=== PATIENT | female | born 1945 | race Caucasian/White ===

== ENCOUNTER → 2016-05-22 | Outpatient (CLI) | payer BC, MEDICARE | LOC: LABWHC1 11:44 | PROVIDERS: ATTEND Psychiatry & Neurology Neurology | DX: G40.209 Localization-related (focal) (partial) symptomatic epilepsy and epileptic syndromes with complex partial seizures, not intractable, without status epilepticus (principal); Z79.899 Other long term (current) drug therapy | CPT/HCPCS: 36415; 80177 ==

== ENCOUNTER → 2016-07-08 | Outpatient (CLI) | payer BC ==
--- NOTE | 2016-07-08 19:13 | CONS ---
DATE OF CONSULTATION: 07/08/2016 This patient is a 71-year-old lady who has been evaluated in the sleep center for possible obstructive sleep apnea-hypopnea syndrome. HISTORY OF PRESENT ILLNESS/SLEEP-WAKE EVALUATION: Patient's usual sleep schedule is from around 10:30 p.m. until 5 a.m. Sometimes she has problems with falling asleep. No TV in bedroom. She snores, according to her family. She wakes up from sleep 3 times with nocturia. In the morning she wakes up tired, feeling sleepy during the day. Mcgrath Sleepiness Scale is significantly increased to 13. She has episodes of depression and claustrophobia. No history of hypnagogic hallucinations, sleep paralysis or cataplexy. Past medical history is positive for episodes of atrial fibrillation. Sometimes these episodes happen during sleep. Positive history of 2 episodes of atrial fibrillation which were converted to normal sinus rhythm with the usage of only beta blockers. Hypertension. Hypothyroidism. Seasonal allergies. Iron deficiency. PAST SURGICAL HISTORY: Back surgery, cholecystectomy, appendectomy, tubal irrigation. Left leg bypass. MEDICATIONS: 1. Savaysa. 2. Motrin. 3. Oxybutynin. 4. Levetiracetam. 5. Levothyroxine. 6. ( ) 7. Losartan. 8. Loratadine. 9. Vitamin D3 supplement. 10. Atenolol. SOCIAL HISTORY: Negative for smoking or using alcohol. REVIEW OF SYSTEMS: Multiple awakenings from sleep, sleepiness during the day, swelling of the legs. No fevers. No double vision. No recent chest pain. No shortness of breath. No abdominal pain. No bleeding episodes. No blood in urine. No seizure episodes. FAMILY HISTORY: Hypertension, heart problems, stroke, arthritis, snoring, acid reflux. PHYSICAL EXAMINATION: GENERAL: A pleasant 71-year-old lady who looks probably younger than her age. VITAL SIGNS: BP 107/66, HR 45, RR 16. Height 64-1/2 inches. Weight 201.4. BMI 33.9. Neck 14-1/4 inches in circumference. Temperature 98.3. Oxygen saturation at room air 97%. HEENT: PERRLA, EOMI. Evaluation of oropharynx showed tongue protrudes midline; low position of soft palate. NECK: Supple. No JVD. Thyroid is not palpable. LUNGS: Clear to percussion and to auscultation. Good air exchange. No wheezing or rhonchi. HEART: S1, S2 regular. No murmurs, gallops or rubs. ABDOMEN: Soft and nontender. Bowel sounds are present. No organomegaly appreciated. EXTREMITIES: One plus ankle edema. MULTIPLE SCLEROSIS NURSE: Awake, alert, and oriented x3. Cranial nerves 2 to 7 intact. There is no fasciculation or atrophy noted. No focal deficits observed. IMPRESSION: 1. Snoring, multiple awakenings from sleep with nocturia, low position of soft palate, excessive daytime sleepiness, Mcgrath Sleepiness Scale increased to 13; obstructive sleep apnea-hypopnea syndrome. 2. History of atrial fibrillation, two episodes, converted to normal sinus rhythm with medications. 3. History of two seizure episodes. One of them started during sleep time. 4. Hypothyroidism. 5. Hypertension. 6. Seasonal allergies. 7. Status post back surgery. 8. Status post cholecystectomy. 9. History of iron deficiency. 10. Status post appendectomy. 11. Status post tubal ligation. 12. Status post bypass surgery. PLAN: 1. Polysomnography for evaluation of patient's breathing during sleep. 2. CPAP/BiPAP titration if sleep study confirms obstructive sleep apnea-hypopnea syndrome. 3. Preferable position during sleep on the side. 4. No driving if patient feels any sleepiness. Patient is aware of civil and criminal liability for unsafe driving. 5. I will see patient for follow-up visit to explain results of the testing and following plan. Thank you very much for referring this patient for consultation. Sincerely, Jose Concepcion MD, PhD, FAASM. Diplomat of [employer], Sleep Medicine Board by [employer] [facility] [place]
== END ==
LOC: SLEEP 15:02
PROVIDERS: ATTEND Internal Medicine
DX: G47.33 Obstructive sleep apnea (adult) (pediatric) (principal); I48.91 Unspecified atrial fibrillation; E03.9 Hypothyroidism, unspecified; I10 Essential (primary) hypertension; E61.1 Iron deficiency; Z98.890 Other specified postprocedural states; Z90.49 Acquired absence of other specified parts of digestive tract; Z98.51 Tubal ligation status; Z79.1 Long term (current) use of non-steroidal anti-inflammatories (NSAID); Z79.899 Other long term (current) drug therapy
CPT/HCPCS: 99211

== ENCOUNTER → 2016-12-22 | Outpatient (CLI) | payer BC, MEDICARE ==
--- NOTE | 2016-12-23 10:22 | MM ---
Reason for exam: screening (asymptomatic). Last mammogram was performed 1 year and 6 months ago. History: Patient is postmenopausal. Family history of breast cancer in paternal grandmother at age 50. Physical Findings: A clinical breast exam by your physician is recommended on an annual basis and results should be correlated with mammographic findings. MG 3D Screening Mammo W/Cad Bilateral CC and MLO view(s) were taken. Prior study comparison: June 16, 2015, bilateral MG screening mammo w CAD. May 17, 2014, bilateral MG screening mammo w CAD. There are scattered fibroglandular densities. There is a 4mm mass in the upper outer quadrant left breast at anterior depth. No suspicious abnormality. ASSESSMENT: Incomplete: need additional imaging evaluation, BI-RAD 0 RECOMMENDATION: Special view mammogram of the left breast. If lesion persists on supplemental views, image directed ultrasound is recommended. [facility] will attempt to contact patient to return for supplemental views and ultrasound if indicated.
== END ==
LOC: RADMAMWWP 14:03
PROVIDERS: ATTEND Internal Medicine
DX: Z12.31 Encounter for screening mammogram for malignant neoplasm of breast (principal)
CPT/HCPCS: 77063; G0202

== ENCOUNTER → 2017-03-10 | Outpatient (CLI) | payer BC, MEDICARE ==
--- NOTE | 2017-03-10 12:47 | PN ---
PROGRESS NOTE FOLLOW-UP VISIT DATE OF SERVICE: 03/10/2017 A 71-year-old lady has been followed in the sleep center for treatment of obstructive sleep apnea-hypopnea syndrome. Recently patient had a home sleep apnea test and CPAP titration and I discussed results of the sleep studies with patient. Patient received her CPAP unit and today she came for follow-up visit, first time after she received her CPAP equipment. She is able to use CPAP equipment without significant problems related to mask fitting, pressure and humidification, sometimes mask goes out during the night. I checked CPAP unit. CPAP pressure is 10 cm of water. The patient uses 63 out of 70 nights total and 51/70 nights for more than 4 hours. Average usage is 5.2 hours. Leak is 19 L/minute, which is acceptable. Apnea-hypopnea index is only 1.7, which is in normal range. [place] Sleepiness Scale today is 10. Patient indicated that she sleeps better with CPAP. She could fall asleep better with this machine versus before. MEDICATIONS: Motrin, oxybutynin, levetiracetam, levothyroxine, paroxetine, losartan, loratadine, atenolol, vitamin D3. PHYSICAL EXAMINATION: During physical exam, patient in no distress. VITAL SIGNS: BP 135/76, HR 77, RR 16, weight 211.2, temperature 97.9, oxygen saturation at room air 96%. HEENT: PERRLA, EOMI. Oropharynx moderately low position of soft palate. NECK: Supple, no JVD. Thyroid is not palpable. LUNGS: Clear to percussion and to auscultation. Good air exchange. No wheezing or rhonchi. HEART: S1, S2 regular. No murmurs, gallops, or rubs. ABDOMEN: Slightly obese. EXTREMITIES: No clubbing or cyanosis. HEAD WORKER: Awake, alert, and oriented X3. Cranial nerves 2 to 7 intact. There is no fasciculation or atrophy. noted. No focal deficits observed IMPRESSION: 1. Moderate obstructive sleep apnea-hypopnea syndrome; apnea-hypopnea index 15 with oxygen desaturation to 85% on full control with CPAP at 10 cm of water. Patient demonstrated good compliance with treatment benefitting from treatment. 2. History of atrial fibrillation, episodes x2 converted to normal sinus rhythm. 3. Very minimal periodic limb movements during titration. 4. History of 2 seizure episodes. 5. Hypothyroidism. 6. Hypertension. 7. Seasonal allergy. 8. Status post back surgery. 9. Status post cholecystectomy. 10.History of iron deficiency. 11.Status post appendectomy. 12.Status post tubal ligation. 13.Status post bariatric surgery. PLAN: 1. Patient will continue to use CPAP equipment every night. 2. Continue losing weight. 3. Sleep hygiene with regular time in bed for at least 7-1/2 hours. 4. No driving if feeling sleepiness. 5. Prescription for all necessary CPAP supplies including mask, tube, filters. Thank you very much for allowing me to participate in management of your patient. Sincerely, Jose Concepcion MD, PhD, FAASM Diplomat of [employer] [facility] [place] MMODL / IJN: [id number] /
== END | disposition home or self-care (01) ==
LOC: SLEEP 11:59
PROVIDERS: ATTEND Internal Medicine
DX: G47.33 Obstructive sleep apnea (adult) (pediatric) (principal); E03.9 Hypothyroidism, unspecified; I10 Essential (primary) hypertension; J30.2 Other seasonal allergic rhinitis; Z98.890 Other specified postprocedural states; Z90.49 Acquired absence of other specified parts of digestive tract; Z98.84 Bariatric surgery status; Z79.899 Other long term (current) drug therapy; Z79.1 Long term (current) use of non-steroidal anti-inflammatories (NSAID)

== ENCOUNTER → 2017-04-29 | Outpatient (CLI) | payer BC, MEDICARE | END | disposition home or self-care (01) | LOC: LABWHC1 10:16 | PROVIDERS: ATTEND Psychiatry & Neurology Neurology | DX: G40.209 Localization-related (focal) (partial) symptomatic epilepsy and epileptic syndromes with complex partial seizures, not intractable, without status epilepticus (principal) | CPT/HCPCS: 36415; 80177 ==

== ENCOUNTER → 2017-06-22 | Outpatient (CLI) | payer BC, MEDICARE ==
[2017-06-22 15:54] LABS: HCT 36.8 % (34.0-46.0); HGB 12.4 gm/dL (11.4-16.0); MCH 28.8 pg (25.0-35.0); MCHC 33.7 g/dL (31.0-37.0); MCV 85.3 fL (80.0-100.0); Mean Platelet Volume 7.1; Platelet Count 366 k/uL (150-450); RBC 4.32 m/uL (3.80-5.40); RDW 12.3 % (11.5-15.5); WBC 10.3 k/uL (3.8-10.6)
== END | disposition home or self-care (01) ==
LOC: LABWHC1 15:30
PROVIDERS: ATTEND Internal Medicine Clinical Cardiac Electrophysiology
DX: I48.0 Paroxysmal atrial fibrillation (principal); I49.5 Sick sinus syndrome
CPT/HCPCS: 36415; 80048; 85027

== ENCOUNTER 2017-06-28 10:39 | Day surgery (SDC) | payer BC, MEDICARE ==
[2017-06-21 12:00] VITALS: BMI 32.8
[~2017-06-28 10:39] MED LIST: DEXAMETHASONE SOD PHOSPHATE 10 MG/ML 1 ML VIAL IV ONE; LACTATED RINGERS 1,000 ML IV SCH; MIDAZOLAM 2 MG/2 ML VIAL IV PRN; ONDANSETRON 4 MG/2 ML VIAL IVP ONE; SCOPOLAMINE 1.5MG/72HR PATCH TRANSDERM ONE; SODIUM CHLORIDE 0.9% 1,000 ML IV SCH; fentaNYL (PF) 50 MCG/ML 2 ML AMP IV PRN
[2017-06-28] MEDS ORDERED: HEPARIN SODIUM,PORCINE 10,000 UNIT/ML 1 ML VIAL ONE (12:24)
[2017-06-28] MEDS ORDERED: LIDOCAINE 1% INJ 10MG/ML (20 ML MDV) ONE (12:24)
[2017-06-28] MEDS ORDERED: fentaNYL (PF) 50 MCG/ML 2 ML AMP ONE (12:24)
[2017-06-28] MEDS ORDERED: IV FLUID CONTINUATION 950 ML IV ONE (12:24)
[2017-06-28] MEDS ORDERED: PROTAMINE SULFATE 10 MG/ML 5 ML VIAL IV ONE (12:24)
[2017-06-28] MEDS ORDERED: PROPOFOL 10 MG/ML 20 ML VIAL IV ONE (12:24)
[2017-06-28] MEDS ORDERED: MIDAZOLAM 2 MG/2 ML VIAL ONE (12:24)
[2017-06-28] MEDS ORDERED: SUCCINYLCHOLINE CHLORIDE VIAL 200 MG/10 ML VIAL IV ONE (12:24)
[2017-06-28] MEDS ORDERED: PHENYLEPHRINE-0.9% NACL SYG 1 MG/10 ML SYRINGE ONE (12:24)
[2017-06-28] MEDS ORDERED: ISOPROTERENOL 250 MCG/1.25 ML SYR IV ONE (12:24)
[2017-06-28] MEDS ORDERED: LIDOCAINE 2% INJ 20 MG/ML SQ ONE (13:17)
[2017-06-28] MEDS ORDERED: HEPARIN SOD,PORK IN 0.45% NACL 25,000 UNIT in 0.45% NACL 1 500ML.BAG IV ONE (13:29)
[2017-06-28] MEDS ORDERED: IOPAMIDOL-370 125ML BTL INJ ONE (15:36)
[2017-06-28] MEDS ORDERED: ACETAMINOPHEN TAB 325 MG TAB PO PRN (15:52)
--- NOTE | 2017-06-28 16:12 | P.PCN ---
Preoperative Diagnosis: Indication for the procedure Paroxysmal atrial fibrillation with RVR, intolerant of AV kina blocking drugs as well as antiarrhythmic drugs Underlying sick sinus syndrome Procedures performed (PVI - CRYO Ablation) Invasive hemodynamic monitoring while general anesthesia, right femoral arterial line for monitoring and sampling Comprehensive diagnostic EP study without arrhythmia induction CS pacing and recording Drug infusion Catheter the mapping of the tachycardia (NOT 3D mapping) Intracardiac echocardiography Pulmonary vein isolation with transseptal and comprehensive EPS, 50699 Procedure details Patient was brought to the EP lab in a fasting state. Written informed consent was obtained prior to the procedure. Procedure performed under general anesthesia After initial muscle relaxant use, muscle relaxants were not given thereafter in order to assess phrenic nerve during procedure Patient prepped and draped as per protocol Full cryo-set up with standard preparation of the cryoablation tools done Femoral Venous access obtained on the right and left groins Sheaths placed Diagnostic catheters for the high right atrium, phrenic nerve stimulation and pacing, His bundle, RV and coronary sinus placed Intracardiac echo catheter placed Long sheath placed in the right atrium Left and right transseptal catheterization performed under intracardiac echo guidance Intravenous heparin with aCT above 300 Later, catheter positioning and balloon positioning under intracardiac echo Baseline measurements Patient was in sinus rhythm the start of the study sinus cycle length 1072 ms, QRS 88 ms, WI interval 135 ms, QT 479 ms. AH interval 71 ms and HV interval 65 ms Comprehensive diagnostic EP study with drug infusion Atrial pacing performed from the high right atrium and the coronary sinus Sinus recovery times at 600 504 100 ms were 1076, 1098 and 1078 ms respectively. VA Wenckebach block greater than 600 ms AV node Wenckebach block 510 ms AV node Wenckebach block from the Ed sinus 520 ms Transseptal catheterization performed RA pressure 20/15/18 LA pressure 20/6/12 Transseptal catheterization performed with standard sheath. The cryoablation sheath was then placed with an over the wire exchange without any acute complications. All 4 pulmonary veins were isolated in the following sequence: Left superior followed by left inferior followed by right superior followed by right inferior The cryo-ablation balloon was placed at the os of each vein 1.5 mL of IV dye was injected to confirm an occluded vein Goal during cryoablation was to achieve -30C in the first 30 seconds. If not the balloon was repositioned to obtain this result After completion of Cryoblation with durations from 180-240 seconds, entrance block was confirmed with the Attain circular catheter in a roving fashion around the antrum of the pulmonary veins Phrenic nerve pacing was performed from the SVC, right innominate vein area and diaphragm voltage was monitored as well as manually Parameter goals for each cryo freeze -30C by 30 seconds -40C by 60 seconds Mediated between minus 40-55 Thaw time greater than 10 seconds Balloon visualized by intracardiac echo to ensure that the proximal one third was within the left atrium/antrum Left superior pulmonary vein 2 cryoablation's, 3 minutes each, complete isolation 47 seconds, time to effect, on the second cryoablation Left inferior pulmonary vein 2 cryo lesions, 3 minutes each, esophageal deflection performed On the first cryoablation, 87 seconds, time to effect Right superior pulmonary vein, during phrenic nerve pacing 2 cryo lesions, 3 minutes each, time to effect was 70 seconds on the first one Excellent antral occlusion with the second cryoablation 3 minutes Right inferior pulmonary vein, during phrenic nerve pacing 2 cryoablation's, 120 seconds followed by 180 seconds Complete isolation At the end of the procedure the Achieve catheter was once again used to check for entrance block Phrenic nerve stimulation was performed to confirm diaphragmatic stimulation the end of the procedure Cine fluoroscopy was performed at the very end of the procedure to confirm movement of both diaphragms with inspiration and expiration At the end of the procedure the patient was extubated Heparin was reversed Venous sheaths were removed and hemostasis assured Result Successful pulmonary vein isolation using cryo-ablation Complete entrance block in all 4 veins confirmed No evidence for phrenic nerve injury Left-sided esophagus. Deflection performed for the left inferior pulmonary vein Anesthesia: GETA Condition: stable Disposition: observation
[2017-06-28] MEDS ORDERED: ACETAMINOPHEN IV (For NPO) 1,000 MG in EMPTY BAG 1 BAG IVPB ONE (17:00)
[2017-06-28] MEDS: HYDROcodone/APAP 5-325MG 1 EACH TAB PO PRN (19:54)
[2017-06-28] MEDS ORDERED: ATORVASTATIN 40 MG TAB PO SCH (21:00)
[2017-06-28] MEDS ORDERED: ATORVASTATIN 40 MG TAB ONE (21:00)
[2017-06-28] MEDS ORDERED: levETIRAcetam 500 MG TAB ONE (21:00)
[2017-06-29] MEDS ORDERED: ACETAMINOPHEN TAB 325 MG TAB ONE (02:30)
[2017-06-29] MEDS: HYDROcodone/APAP 5-325MG 1 EACH TAB PO PRN (05:55)
[2017-06-29] MEDS: levETIRAcetam 500 MG TAB PO SCH ×2 (05:59→08:34)
[2017-06-29] MEDS ORDERED: LEVOTHYROXINE 112 MCG TAB PO SCH (06:30)
--- NOTE | 2017-06-29 07:47 | P.DS ---
Providers Attending physician: Silver Majano Primary care physician: Stated None Hospital Course: Patient is doing recently well. She had a very minor bleeding in the right groin and there is a very small swelling there. Sutures are removed. She has mild pleuritic chest discomfort but looks comfortable she does have a little bit of a cough. She denies any sore throat Blood pressure 122/60 mmHg pulse rate in the 70s and neck examination is normal Heart sounds S1 and S2 are normal no murmurs or gallops or rub Lungs are clear to auscultation Extremities are warm no edema Groins of healed well. 0.5- 1 cm swelling on the right groin Impression Paroxysmal atrial fibrillation with RVR, symptomatic Intolerant of drug therapy and AV node blocking drugs Underlying mild Sick Sinus Syndrome Status post cryoablation of all 4 pulmonary veins, successful Status post esophageal deflection Pleuritic chest pain this morning Suggest CT of the chest with contrast to evaluate mediastinum and esophagus and pericardial If cardiac structures are within normal limits and esophagus was normal at 10 proceed with discharge by 6 PM this evening Follow-up in one week Colchicine 0.6 mg twice daily Continue other medications unchanged and do not stop anticoagulation Patient Condition at Discharge: Stable Plan - Discharge Summary New Discharge Prescriptions: No Action Loratadine [Claritin] 10 mg PO DAILY Levothyroxine Sodium [Synthroid] 112 mcg PO DAILY Multivitamins, Thera [Multivitamin (formulary)] 1 tab PO DAILY Edoxaban Tosylate [Savaysa] 60 mg PO DAILY #30 tab levETIRAcetam [Keppra] 500 mg PO Q12HR #60 tab Atorvastatin [Lipitor] 40 mg PO HS Cyanocobalamin [Vitamin B-12] 500 mcg PO DAILY Losartan [Cozaar] 25 mg PO DAILY Magnesium 500 mg PO DAILY Matzim 180 mg PO DAILY PARoxetine HCL 20 mg PO DAILY Discharge Medication List Levothyroxine Sodium [Synthroid] 112 mcg PO DAILY 01/20/15 [History] Loratadine [Claritin] 10 mg PO DAILY 01/20/15 [History] Multivitamins, Thera [Multivitamin (formulary)] 1 tab PO DAILY 07/13/15 [History ] Edoxaban Tosylate [Savaysa] 60 mg PO DAILY #30 tab 07/16/15 [Rx] levETIRAcetam [Keppra] 500 mg PO Q12HR #60 tab 07/16/15 [Rx] Atorvastatin [Lipitor] 40 mg PO HS 06/21/17 [History] Cyanocobalamin [Vitamin B-12] 500 mcg PO DAILY 06/21/17 [History] Losartan [Cozaar] 25 mg PO DAILY 06/21/17 [History] Magnesium 500 mg PO DAILY 06/21/17 [History] Matzim 180 mg PO DAILY 06/21/17 [History] PARoxetine HCL 20 mg PO DAILY 06/21/17 [History] Activity/Diet/Wound Care/Special Instructions: Post EP study - Ablation instructions 1. Keep access sites dry for 2 days. 2. No heavy lifting or straining for 2 days. 3. Avoid bending the hips repeatedly for 2 days. 4. You may go up and down stairs slowly Call if the following is noted 1. Bleeding, increasing swelling or pain at the access sites. 2. Increasing chest discomfort, especially upon taking a deep breath. 3. Increasing shortness of breath, at rest or with exertion. 4. Undue cough / phlegm 5. Difficulty or pain while swallowing. 6. Pain or change in color in the extremities. 7. Fever, chills, rigors. 8. Increasing headache or neurologic symptoms. 9. Dizziness, fainting, palpitations Follow-up with Dr. Eid in 1 week, [facility] nurse practitioner Continue all medications without any changes Continue anticoagulation Colchicine 0.62 g twice daily for 3 days and then stop. Take with meals
[2017-06-29] MEDS ORDERED: RX INFO: IV CONTRAST WAS GIVEN 1 EACH MISC MISCELLANE PRN (07:48)
[2017-06-29 07:55] LABS: Calcium 8.7 mg/dL (8.4-10.2); Potassium 4.2 mmol/L (3.5-5.1)
[2017-06-29 08:05] VITALS: RESP 18
[2017-06-29] MEDS ORDERED: SODIUM CHLORIDE 0.9% 1,000 ML IV SCH (08:30)
[2017-06-29] MEDS ORDERED: COLCHICINE 0.6 MG EACH PO SCH (09:00)
[2017-06-29] MEDS ORDERED: EDOXABAN TOSYLATE 60 MG TABLET PO SCH (09:00)
[2017-06-29] MEDS ORDERED: LOSARTAN 25 MG TAB PO SCH (09:00)
[2017-06-29] MEDS ORDERED: PARoxetine 20 MG TAB PO SCH (09:00)
--- NOTE | 2017-06-29 11:01 | CT ---
EXAMINATION TYPE: CT chest w con DATE OF EXAM: 06/29/2017 COMPARISON: 01/21/2015 HISTORY: 72-year-old female chest pain post cardiac ablation TECHNIQUE: Contiguous axial scanning of the chest after the administration of 100 mL of Isovue 370. Coronal/sagittal reconstructions performed. CT DLP: 454.6mGycm. Automatic exposure control utilized for a dose reduction. FINDINGS: The heart is normal size. Coronary vessel calcifications are present and are a marker for coronary ar melanie disease. There is some pericardial thickening and suggestion of a small pericardial effusion posteriorly at th e base of the heart and on the right adjacent to the pulmonary veins. This fluid measures up to 1.1 c m thick, axial image 29. Trace sliver of possible pneumopericardium is difficult to exclude adjacent to the posterior margin of the right superior pulmonary vein, axial images 29. 9 mm nonenlarged precarinal lymph node. No thoracic lymphadenopathy by CT size criteria. The aorta normal caliber with very direct takeoff of the left vertebral artery directly from the aort ic arch. Strandy areas of atelectasis throughout the lungs and dependent atelectasis posteriorly and posterome dially right midlung. No consolidation or pleural effusion. Mild circumferential wall thickening of the distal esophagus could represent esophagitis. Postsurgical changes of Kai-en-Y gastric bypass partially visualized. Bones: Endplate spondylosis mid to lower thoracic spine. No osseous destructive process. IMPRESSION: 1. Some mild pericardial thickening posteriorly and a small focal pericardial effusion near the base of the heart (1.1 cm thick) located posteriorly along the left atrium and also along the right latera l aspect of the left atrium. There may be a trace amount of pneumopericardium here along the posterio r margin of the right superior pulmonary vein (axial image 29). Findings likely represent postprocedu ral sequela of the ablation procedure. Follow-up as clinically indicated. 2. There is mild circumferential wall thickening of the distal esophagus below the level of the left atrium that could reflect esophagitis.
[2017-06-29 12:28] VITALS: PULSE 83
[2017-06-29 16:04] VITALS: BP 110/63; TEMP 98.6
== END 2017-06-29 17:54 | disposition home or self-care (01) ==
LOC: CATHEP 10:39 → 3OBS 15:38 → CATHEP 06-29 17:54
PROVIDERS: ATTEND Internal Medicine Clinical Cardiac Electrophysiology
DX: I48.0 Paroxysmal atrial fibrillation (principal); I44.30 Unspecified atrioventricular block; I49.5 Sick sinus syndrome; I10 Essential (primary) hypertension; I31.3 Pericardial effusion (noninflammatory); I47.1 Supraventricular tachycardia; I47.9 Paroxysmal tachycardia, unspecified; Z95.818 Presence of other cardiac implants and grafts; Z79.02 Long term (current) use of antithrombotics/antiplatelets; Z79.890 Hormone replacement therapy; Z79.51 Long term (current) use of inhaled steroids; Z79.899 Other long term (current) drug therapy; Z88.0 Allergy status to penicillin
CPT/HCPCS: 85347; 93662; 93609; 93656; 80048; 71260; C1769 ×4; C1894 ×2; C1730 ×2; C1759; C1893; C1733; C1766; J2001; J1644; J0131; Q9967 ×2

== ENCOUNTER → 2017-07-13 | Outpatient (CLI) | payer BC, MEDICARE ==
--- NOTE | 2017-07-13 11:32 | USB ---
Reason for exam: follow-up at short interval from prior study. History: Patient is postmenopausal. Family history of breast cancer in paternal grandmother at age 50. Physical Findings: Nurse did not find any significant physical abnormalities on exam. US Breast LT Left breast ultrasound includes all four quadrants, the retroareolar region and axilla. Finding demonstrates a 0.2 x 0.3 x 0.2cm cystic, benign lesion at 3 o'clock. This likely corresponds to the initially questioned mammographic finding. That finding should be reassessed in 6 months. These results were verbally communicated with the patient and result sheet given to the patient on 07/13/17. ASSESSMENT: Probably benign, BI-RAD 3 RECOMMENDATION: Follow-up diagnostic mammogram of both breasts in 6 months.
== END | disposition home or self-care (01) ==
LOC: RADUSWWP 09:58
PROVIDERS: ATTEND Internal Medicine
DX: R92.8 Other abnormal and inconclusive findings on diagnostic imaging of breast (principal)

== ENCOUNTER → 2018-01-11 | Outpatient (CLI) | payer OTHER, MEDICARE ==
--- NOTE | 2018-01-12 09:37 | MM ---
Reason for exam: additional evaluation requested from prior study. Last mammogram was performed 1 year ago. History: Patient is postmenopausal. Family history of breast cancer in paternal grandmother at age 50. Physical Findings: Nurse did not find any significant physical abnormalities on exam. MG 3D Diag Mammo W/Cad CARMEN Bilateral CC and MLO view(s) were taken. Prior study comparison: December 29, 2016, left breast MG 3d work up w/cad LT. December 22, 2016, bilateral MG 3d screening mammo w/cad. There are scattered fibroglandular densities. There is no discrete abnormality. No significant new findings when compared with previous films. These results were verbally communicated with the patient and result sheet given to the patient on 01/11/18. ASSESSMENT: Negative, BI-RAD 1 RECOMMENDATION: Routine screening mammogram of both breasts in 1 year.
== END | disposition home or self-care (01) ==
LOC: RADMAMWWP 14:27
PROVIDERS: ATTEND Family Medicine
DX: R92.8 Other abnormal and inconclusive findings on diagnostic imaging of breast (principal)
CPT/HCPCS: 77062; 77066

== ENCOUNTER 2018-03-25 11:45 | Observation (INO) | payer OTHER, MEDICARE ==
[2018-03-25] MEDS ORDERED: ASPIRIN 81 MG PO STA (12:06)
[2018-03-25] MEDS ORDERED: NITROGLYCERIN OINT 1 INCH/GM PACKET TOPICAL STA (12:06)
--- NOTE | 2018-03-25 12:12 | ED ---
General Adult HPI - General Chief complaint: Chest Pain Stated complaint: chest pain, afib Time Seen by Provider: 03/25/18 11:50 Source: patient, RN notes reviewed Mode of arrival: wheelchair Limitations: no limitations - History of Present Illness Initial comments: This is a 72-year-old female presents to the emergency department because of chest pain. Patient states she has a history of atrial fibrillation. And lately she has been in and out of A. fib according to her maintenance and operations supervisor. Patient comes in today because she's having chest pain that radiates to her right shoulder and has some shortness of breath. Patient denies any fever or chills. Patient does have occasional palpitations and was told by her loop recorder that she was in atrial fibrillation. Patient denies any abdominal pain patient has nausea vomiting diarrhea per patient denies headache patient denies numbness weakness. Patient denies any lightheadedness or dizziness. Patient denies any calf pain or leg swelling. - Related Data Home Medications Medication Instructions Recorded Confirmed Levothyroxine Sodium [Synthroid] 112 mcg PO DAILY 01/20/15 03/25/18 Losartan [Cozaar] 25 mg PO DAILY 06/21/17 03/25/18 Atorvastatin [Lipitor] 10 mg PO DAILY 03/25/18 03/25/18 Diltiazem HCl [Diltiazem 24Hr ER] 180 mg PO DAILY 03/25/18 03/25/18 Isosorbide Mononitrate ER [Imdur] 30 mg PO DAILY 03/25/18 03/25/18 Previous Rx's Medication Instructions Recorded Edoxaban Tosylate [Savaysa] 60 mg PO DAILY #30 tab 07/16/15 levETIRAcetam [Keppra] 500 mg PO Q12HR #60 tab 07/16/15 Allergies Allergy/AdvReac Type Severity Reaction Status Date / Time Penicillins AdvReac yeast Verified 03/25/18 13:09 infections Review of Systems ROS Statement: Those systems with pertinent positive or pertinent negative responses have been documented in the HPI. ROS Other: All systems not noted in ROS Statement are negative. Past Medical History Past Medical History: Atrial Fibrillation, Osteoarthritis (OA), Thyroid Disorder Additional Past Medical History / Comment(s): SEE DR GRIMES H&P, HX OF PLANTAR FASCITIS RT FOOT, loop recorder History of Any Multi-Drug Resistant Organisms: None Reported Past Surgical History: Appendectomy, Back Surgery, Bariatric Surgery, Cardiac Ablation, Cholecystectomy, Heart Catheterization, Tubal Ligation Additional Past Surgical History / Comment(s): lap band, HX OF EPIDURAL INJ FOR PAIN; cardiac loop recorder Past Anesthesia/Blood Transfusion Reactions: No Reported Reaction Type of Cardiac Device: Loop Device Placement Date:: Past Psychological History: Depression Smoking Status: Never smoker Past Alcohol Use History: Rare Past Drug Use History: Marijuana - Past Family History Mother Family Medical History: CVA/TIA Additional Family Medical History / Comment(s): Massive Stroke at 54 Father Family Medical History: Cancer General Exam - General Exam Comments Initial Comments: GENERAL: Patient is well-developed and well-nourished. Patient is nontoxic and well- hydrated and is in mild distress. ENT: Neck is soft and supple. No significant lymphadenopathy is noted. Oropharynx is clear. Moist mucous membranes. Neck has full range of motion without eliciting any pain. EYES: The sclera were anicteric and conjunctiva were pink and moist. Extraocular movements were intact and pupils were equal round and reactive to light. Eyelids were unremarkable. PULMONARY: Unlabored respirations. Good breath sounds bilaterally. No audible rales rhonchi or wheezing was noted. CARDIOVASCULAR: There is a regular rate and rhythm without any murmurs gallops or rubs. ABDOMEN: Soft and nontender with normal bowel sounds. No palpable organomegaly was noted. There is no palpable pulsatile mass. SKIN: Skin is clear with no lesions or rashes and otherwise unremarkable. NEUROLOGIC: Patient is alert and oriented x3. Cranial nerves II through XII are grossly intact. Motor and sensory are also intact. Normal speech, volume and content. Symmetrical smile. MUSCULOSKELETAL: Normal extremities with adequate strength and full range of motion. No lower extremity swelling or edema. No calf tenderness. LYMPHATICS: No significant lymphadenopathy is noted PSYCHIATRIC: Normal psychiatric evaluation. Limitations: no limitations Course Vital Signs 03/25/18 03/25/18 03/25/18 11:49 11:57 12:00 Temperature 97.8 F Pulse Rate 88 87 Pulse Rate [ Marble Setter ] Respiratory 18 18 18 Rate Blood Pressure 112/75 O2 Sat by Pulse 98 96 Oximetry 03/25/18 03/25/18 03/25/18 12:05 13:00 14:00 Temperature Pulse Rate 73 75 Pulse Rate [ 85 Marble Setter ] Respiratory 19 20 Rate Blood Pressure 116/79 133/82 O2 Sat by Pulse 99 96 Oximetry Medical Decision Making - Medical Decision Making EKG showed normal sinus rhythm at 86 bpm IN interval is 134 QRS is 84 Q-T intervals 392 QTC is 469. Patient's EKG shows no ST segment elevation or depression or T wave abnormalities are noted. Chest x-ray shows no acute abnormality. Patient continued to have episodes of chest pain while in the emergency department. Was at this time I thought the patient was having unstable angina said place the patient heparin. I spoke with Dr. Larry Juarez agreed to admit the patient admitted the patient wrote admitting orders I consult cardiology. I continue the heparin on the floor as well as Nitropaste and aspirin. - Lab Data Result diagrams: 03/25/18 12:10 03/25/18 12:10 Lab Results 03/25/18 03/25/18 03/25/18 Range/Units 12:10 12:10 12:10 WBC 9.1 (3.8-10.6) k/uL RBC 4.70 (3.80-5.40) m/uL Hgb 13.5 (11.4-16.0) gm/dL Hct 39.1 (34.0-46.0) % MCV 83.2 (80.0-100.0) fL MCH 28.8 (25.0-35.0) pg MCHC 34.6 (31.0-37.0) g/dL RDW 12.8 (11.5-15.5) % Plt Count 341 (150-450) k/uL Neutrophils % 74 % Lymphocytes % 19 % Monocytes % 5 % Eosinophils % 1 % Basophils % 0 % Neutrophils # 6.7 (1.3-7.7) k/uL Lymphocytes # 1.7 (1.0-4.8) k/uL Monocytes # 0.4 (0-1.0) k/uL Eosinophils # 0.1 (0-0.7) k/uL Basophils # 0.0 (0-0.2) k/uL PT (9.0-12.0) sec INR (<1.2) APTT (22.0-30.0) sec Sodium 141 (137-145) mmol/L Potassium 4.3 (3.5-5.1) mmol/L Chloride 111 H (98-107) mmol/L Carbon Dioxide 22 (22-30) mmol/L Anion Gap 8 mmol/L BUN 24 H (7-17) mg/dL Creatinine 0.88 (0.52-1.04) mg/dL Est GFR (CKD-EPI)AfAm 75 (>60 ml/min/1.73 sqM) Est GFR (CKD-EPI)NonAf 65 (>60 ml/min/1.73 sqM) Glucose 95 (74-99) mg/dL Calcium 9.4 (8.4-10.2) mg/dL Magnesium 1.8 (1.6-2.3) mg/dL Total Bilirubin 0.9 (0.2-1.3) mg/dL AST 28 (14-36) U/L ALT 33 (9-52) U/L Alkaline Phosphatase 123 (38-126) U/L Total Creatine Kinase 73 (30-135) U/L CK-MB (CK-2) 1.4 (0.0-2.4) ng/mL CK-MB (CK-2) Rel Index 1.9 Troponin I <0.012 (0.000-0.034) ng/mL Total Protein 6.5 (6.3-8.2) g/dL Albumin 4.1 (3.5-5.0) g/dL TSH 0.143 L (0.465-4.680) mIU/L Free T4 1.82 (0.78-2.19) ng/dL Urine Color Urine Appearance (Clear) Urine pH (5.0-8.0) Ur Specific [place] (1.001-1.035) Urine Protein (Negative) Urine Glucose (UA) (Negative) Urine Ketones (Negative) Urine Blood (Negative) Urine Nitrite (Negative) Urine Bilirubin (Negative) Urine Urobilinogen (<2.0) mg/dL Ur Leukocyte Esterase (Negative) Urine RBC (0-5) /hpf Urine WBC (0-5) /hpf Ur Squamous Epith Cells (0-4) /hpf Hyaline Casts (0-2) /lpf Urine Mucus (None) /hpf 03/25/18 03/25/18 Range/Units 12:10 13:35 WBC (3.8-10.6) k/uL RBC (3.80-5.40) m/uL Hgb (11.4-16.0) gm/dL Hct (34.0-46.0) % MCV (80.0-100.0) fL MCH (25.0-35.0) pg MCHC (31.0-37.0) g/dL RDW (11.5-15.5) % Plt Count (150-450) k/uL Neutrophils % % Lymphocytes % % Monocytes % % Eosinophils % % Basophils % % Neutrophils # (1.3-7.7) k/uL Lymphocytes # (1.0-4.8) k/uL Monocytes # (0-1.0) k/uL Eosinophils # (0-0.7) k/uL Basophils # (0-0.2) k/uL PT 9.9 (9.0-12.0) sec INR 0.9 (<1.2) APTT 26.4 (22.0-30.0) sec Sodium (137-145) mmol/L Potassium (3.5-5.1) mmol/L Chloride (98-107) mmol/L Carbon Dioxide (22-30) mmol/L Anion Gap mmol/L BUN (7-17) mg/dL Creatinine (0.52-1.04) mg/dL Est GFR (CKD-EPI)AfAm (>60 ml/min/1.73 sqM) Est GFR (CKD-EPI)NonAf (>60 ml/min/1.73 sqM) Glucose (74-99) mg/dL Calcium (8.4-10.2) mg/dL Magnesium (1.6-2.3) mg/dL Total Bilirubin (0.2-1.3) mg/dL AST (14-36) U/L ALT (9-52) U/L Alkaline Phosphatase (38-126) U/L Total Creatine Kinase (30-135) U/L CK-MB (CK-2) (0.0-2.4) ng/mL CK-MB (CK-2) Rel Index Troponin I (0.000-0.034) ng/mL Total Protein (6.3-8.2) g/dL Albumin (3.5-5.0) g/dL TSH (0.465-4.680) mIU/L Free T4 (0.78-2.19) ng/dL Urine Color Yellow Urine Appearance Cloudy H (Clear) Urine pH 6.0 (5.0-8.0) Ur Specific [place] 1.023 (1.001-1.035) Urine Protein 1+ H (Negative) Urine Glucose (UA) Negative (Negative) Urine Ketones 2+ H (Negative) Urine Blood Negative (Negative) Urine Nitrite Negative (Negative) Urine Bilirubin Negative (Negative) Urine Urobilinogen 2.0 (<2.0) mg/dL Ur Leukocyte Esterase Moderate H (Negative) Urine RBC 2 (0-5) /hpf Urine WBC 8 H (0-5) /hpf Ur Squamous Epith Cells 2 (0-4) /hpf Hyaline Casts 8 H (0-2) /lpf Urine Mucus Moderate H (None) /hpf Critical Care Time Critical Care Time: Yes Total Critical Care Time: 30 Disposition Clinical Impression: Unstable angina pectoris Disposition: ADMITTED IP TO THIS HOSP Referrals: Osbaldo Betts MD [Primary Care Provider] - 1-2 days Time of Disposition: 15:02
--- NOTE | 2018-03-25 12:36 | XR ---
EXAMINATION TYPE: XR chest 2V DATE OF EXAM: 03/25/2018 HISTORY: Chest Pain. REFERENCE: Previous study dated 07/13/2015. FINDINGS: There is a partial eventration of the right hemidiaphragm. The lungs are clear. Pleural space are clear. The heart is not enlarged. IMPRESSION: NO ACUTE INTRATHORACIC DISEASE.
[2018-03-25 12:47] LABS: INR 0.9 (<1.2); Partial Thromboplastin Time 26.4 sec (22.0-30.0); Prothrombin Time 9.9 sec (9.0-12.0)
[2018-03-25 12:50] LABS: Albumin 4.1 g/dL (3.5-5.0); Calcium 9.4 mg/dL (8.4-10.2); Magnesium 1.8 mg/dL (1.6-2.3); Potassium 4.3 mmol/L (3.5-5.1); Total Bilirubin 0.9 mg/dL (0.2-1.3); Total Protein 6.5 g/dL (6.3-8.2)
[2018-03-25 12:51] LABS: Basophils % (A) 0 %; Eosinophils # (A) 0.1 k/uL (0-0.7); Eosinophils % (A) 1 %; HCT 39.1 % (34.0-46.0); HGB 13.5 gm/dL (11.4-16.0); Lymphocytes # (A) 1.7 k/uL (1.0-4.8); Lymphocytes % (A) 19 %; MCH 28.8 pg (25.0-35.0); MCHC 34.6 g/dL (31.0-37.0); MCV 83.2 fL (80.0-100.0); Monocytes # (A) 0.4 k/uL (0-1.0); Monocytes % (A) 5 %; Neutrophils # (A) 6.7 k/uL (1.3-7.7); Neutrophils % (A) 74 %; Platelet Count 341 k/uL (150-450); RDW 12.8 % (11.5-15.5); WBC 9.1 k/uL (3.8-10.6)
[2018-03-25 13:05] LABS: Creatine Kinase 73 U/L (30-135)
[2018-03-25 13:07] LABS: T4, Free (Free Thyroxine) 1.82 ng/dL (0.78-2.19)
[2018-03-25 13:18] LABS: Creatine Kinase MB 1.4 ng/mL (0.0-2.4); Troponin I <0.012 ng/mL (0.000-0.034)
[2018-03-25 13:50] LABS: Appearance,Urine Cloudy (Clear); Bilirubin,Urine Negative (Negative); Blood,Urine Negative (Negative); Color,Urine Yellow; Glucose,Urine (UA) Negative (Negative); Hyaline Casts,Urine 8 /lpf (0-2); Ketones,Urine 2+ (Negative); Leukocyte Esterase,Urine Moderate (Negative); Mucus,Urine Moderate /hpf; Nitrite,Urine Negative (Negative); Protein,Urine 1+ (Negative); RBC,Urine 2 /hpf (0-5); Specific Gravity,Urine 1.023 (1.001-1.035); Squamous Epithelial Cell,Urine 2 /hpf (0-4); WBC,Urine 8 /hpf (0-5)
[2018-03-25] MEDS ORDERED: HEPARIN SODIUM,PORCINE 5,000 UNIT/ML 1 ML VIAL IV ONE (15:05)
[2018-03-25] MEDS ORDERED: NITROGLYCERIN SL TABS 0.4 MG TAB SUBLINGUAL PRN (15:07)
[2018-03-25] MEDS ORDERED: HEPARIN SOD,PORK IN 0.45% NACL 25,000 UNIT in 0.45% NACL 1 250ML.BAG IV SCH (15:15)
[2018-03-25 16:50] VITALS: BMI 33.3
[2018-03-25 17:46] VITALS: RESP 18
[2018-03-25] MEDS ORDERED: NITROGLYCERIN OINT 1 INCH/GM PACKET TOPICAL SCH (18:00)
[2018-03-25] MEDS ORDERED: DOCUSATE 100 MG CAP PO PRN ×2 (18:21)
[2018-03-25 18:39] LABS: Creatine Kinase 61 U/L (30-135)
[2018-03-25 18:53] LABS: Creatine Kinase MB 1.1 ng/mL (0.0-2.4); Troponin I <0.012 ng/mL (0.000-0.034)
[2018-03-25] MEDS: levETIRAcetam 500 MG TAB PO SCH (21:22)
[2018-03-25] MEDS: CEPHALEXIN 250 MG CAP PO SCH (21:22)
[2018-03-25] MEDS ORDERED: MAG HYDROX/AL HYDROX/SIMETH 30 ML CUP PO PRN (22:14)
[2018-03-25 23:48] LABS: Creatine Kinase 56 U/L (30-135)
[2018-03-26 00:01] LABS: Troponin I <0.012 ng/mL (0.000-0.034)
[2018-03-26] MEDS ORDERED: LEVOTHYROXINE 112 MCG TAB PO SCH (06:30)
[2018-03-26 06:46] LABS: Cholesterol 113 mg/dL (<200); HDL Cholesterol 46 mg/dL (40-60); LDL Cholesterol,Calculated 50 mg/dL (0-99); Triglycerides 84 mg/dL (<150)
[2018-03-26] MEDS: CEPHALEXIN 250 MG CAP PO SCH (08:28)
[2018-03-26] MEDS: levETIRAcetam 500 MG TAB PO SCH (08:29)
[2018-03-26] MEDS: ISOSORBIDE MONONITRATE ER 30 MG TAB.ER.24H PO SCH ×2 (08:29→08:30)
[2018-03-26] MEDS ORDERED: ATORVASTATIN 10 MG TAB PO SCH (09:00)
[2018-03-26] MEDS ORDERED: LOSARTAN 25 MG TAB PO SCH (09:00)
[2018-03-26] MEDS ORDERED: DILTIAZEM CD 180 MG CAP.ER.24H PO SCH (09:00)
[2018-03-26] MEDS ORDERED: EDOXABAN TOSYLATE 60 MG TABLET PO SCH (09:00)
[2018-03-26] MEDS ORDERED: DOCUSATE 100 MG CAP PO SCH (09:00)
[2018-03-26] MEDS ORDERED: ASPIRIN 325 MG TAB PO SCH (09:00)
--- NOTE | 2018-03-26 11:38 | P.HPIM ---
History of Present Illness H&P Date: 03/26/18 Chief Complaint: Chest pain HISTORY AND PHYSICAL AND DISCHARGE SUMMARY: This is a 72-year-old female patient of Dr. Osbaldo Betts with past medical history of hypertension, hyperlipidemia, tachycardia bradycardia syndrome/mild sick sinus syndrome, paroxysmal atrial fibrillation status post ablation with Dr. Melecio castle Binh, seizure disorder diagnosed in 2016, morbid obesity status post lap band. Patient states that she was driving to the clinic to have a Keppra level checked and was complaining of chest pain that was in the upper chest and radiated to the shoulder with some shortness of breath, no fever or chills. She has had this pain for some time it comes and goes and it seems to be worse when she is exerting herself such as carrying groceries and at that time she also developed shortness of breath with it. The pain is sharp and does not last very long. Her friend told her she needed to have this checked. Patient also states that she had heartburn last evening was given Maalox which seemed to help and also complains of food getting stuck in her esophagus especially meat. Patient recently started acute oh diet on Tuesday and has lost 14 pounds. She has complained of constipation and has been instructed to continue Benefiber and increased fluid intake while on the ketone diet. Patient also complains of sleeping 16-18 hours per day which is been going on for several months ever since she retired. She does have a history of sleep apnea and has a CPAP but states she has not been using it lately. She is up several times a night and also her dogs get her up during the night and she states she is a light sleeper. She drinks one cup of coffee only in the morning and denies any other caffeine intake. Regarding depression, patient states that she has tried to commit suicide 2 times in the past one time by taking pills and 1 by turning her wrist. She states she has had suicidal thoughts recently and her plan would be to take pills. Patient presented to [facility] emergency center for evaluation. She was afebrile, heart rate running in the 70s and 80s, blood pressure 112/75 and pulse ox 98%. CBC within normal limits, BUN 24 and creatinine 0.88, troponin 0.012, proBNP, TSH 0.143 with normal free T4 1.82. Urinalysis was cloudy, leukoesterase moderate, WBCs 8. EKG is a sinus rhythm. Patient was started on aspirin, heparin drip and Nitropaste and placed on the cardiac stepdown unit as observation status and cardiology consult requested. Cardiology has evaluated the patient and cleared her for discharge. Repeat troponins of been negative. Triglycerides 84, cholesterol 113, 87 LDL 50, HDL 46. Consult has also been requested with psychiatry for depression and traffic safety administrator added. Patient will be prepared for discharge and if cleared by psychiatry, patient will be discharged home later today. Patient is signing out AMA. Review of Systems All systems: negative Constitutional: Reports daytime sleepiness (She is), Reports fatigue, Reports weight loss, Denies chills, Denies fever Eyes: denies blurred vision, denies pain Ears, nose, mouth and throat: Reports dysphagia, Denies headache, Denies mouth pain, Denies sore throat, Denies vertigo Cardiovascular: Reports chest pain, Reports dyspnea on exertion, Reports shortness of breath, Denies syncope Respiratory: Reports sleep apnea, Denies cough, Denies cough with sputum, Denies dyspnea, Denies excessive sputum, Denies hemoptysis, Denies home oxygen, Denies wheezing Gastrointestinal: Reports constipation, Denies abdominal pain, Denies diarrhea, Denies loss of appetite, Denies nausea, Denies vomiting Genitourinary: Reports difficulty voiding, Reports incomplete emptying, Reports urinary frequency, Denies dysuria, Denies hematuria, Denies urge incontinence, Denies urgency Musculoskeletal: Denies frequent falls, Denies gait dysfunction, Denies myalgias Integumentary: Denies pruritus, Denies rash, Denies wounds Neurological: Denies aphasia, Denies change in mentation, Denies change in speech, Denies gait dysfunction, Denies head injury, Denies headaches, Denies numbness, Denies seizures, Denies weakness Psychiatric: Reports depression, Reports sleep disturbances, Reports suicidal ideation, Denies anxiety Endocrine: Denies fatigue, Denies weight change Past Medical History Past Medical History: Atrial Fibrillation, Osteoarthritis (OA), Thyroid Disorder Additional Past Medical History / Comment(s): 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 Majano,HX OF PLANTAR FASCITIS LEFT FOOT, loop recorder History of Any Multi-Drug Resistant Organisms: None Reported Past Surgical History: Appendectomy, Back Surgery, Bariatric Surgery, Cardiac Ablation, Cholecystectomy, Heart Catheterization, Tubal Ligation Additional Past Surgical History / Comment(s): lap band, HX OF EPIDURAL INJ FOR PAIN; cardiac loop recorder Past Anesthesia/Blood Transfusion Reactions: No Reported Reaction Type of Cardiac Device: Loop Device Placement Date:: Past Psychological History: Depression Smoking Status: Never smoker Past Alcohol Use History: Rare Additional Past Alcohol Use History / Comment(s): Patient is a lifelong nonsmoker, she does use edible marijuana once in a while, no other illicit drug use. She was at home with her . 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 Past Drug Use History: Marijuana - Past Family History Mother Family Medical History: CVA/TIA Additional Family Medical History / Comment(s): Massive Stroke at 54 Father Family Medical History: Cancer Medications and Allergies Home Medications Medication Instructions Recorded Confirmed Type RX: Levothyroxine Sodium 112 mcg PO DAILY 01/20/15 03/25/18 History [Synthroid] RX: Edoxaban Tosylate [Savaysa] 60 mg PO DAILY #30 tab 07/16/15 03/25/18 Rx RX: levETIRAcetam [Keppra] 500 mg PO Q12HR #60 tab 07/16/15 03/25/18 Rx RX: Losartan [Cozaar] 25 mg PO DAILY 06/21/17 03/25/18 History RX: Atorvastatin [Lipitor] 10 mg PO DAILY 03/25/18 03/25/18 History RX: Diltiazem HCl [Diltiazem 24Hr 180 mg PO DAILY 03/25/18 03/25/18 History ER] RX: Isosorbide Mononitrate ER 30 mg PO DAILY 03/25/18 03/25/18 History [Imdur] RX: Cephalexin [Keflex] 250 mg PO TID #21 cap 03/26/18 Rx Allergies Allergy/AdvReac Type Severity Reaction Status Date / Time Penicillins AdvReac yeast Verified 03/25/18 13:09 infections Physical Exam Vitals: Vital Signs Temp Pulse Pulse Pulse Resp BP BP 03/26/18 04:00 98.0 F 86 18 109/66 03/26/18 00:00 98.2 F 88 18 135/77 03/25/18 20:00 96.9 F L 86 18 123/69 03/25/18 17:31 97.9 F 87 18 125/75 03/25/18 16:00 80 17 120/75 03/25/18 15:00 78 23 134/86 03/25/18 14:00 75 20 133/82 03/25/18 13:00 73 19 116/79 03/25/18 12:05 85 03/25/18 12:00 87 18 03/25/18 11:57 18 03/25/18 11:49 97.8 F 88 18 112/75 Pulse Ox 03/26/18 04:00 95 03/26/18 00:00 95 03/25/18 20:00 95 03/25/18 17:31 96 03/25/18 16:00 97 03/25/18 15:00 96 03/25/18 14:00 96 03/25/18 13:00 99 03/25/18 12:05 03/25/18 12:00 96 03/25/18 11:57 03/25/18 11:49 98 Intake and Output 03/25/18 03/26/18 03/26/18 22:59 06:59 14:59 Intake Total 240 Balance 240 Intake: Oral 240 Other: # Voids 1 1 Weight 95 kg 93.8 kg Gen: This is a 72-year-old obese female. She is sitting up in bed and appears to be comfortable and in no acute distress. HEENT: Head is atraumatic, normocephalic. Pupils equal, round. Sclerae is anicteric. NECK: Supple. No JVD. No lymphadenopathy. No thyromegaly. LUNGS: Clear to auscultation. No wheezes or rhonchi. No intercostal retractions. No chest wall tenderness. HEART: Regular rate and rhythm. No murmur. ABDOMEN: Soft. Obese. Bowel sounds are present. No masses. Mild epigastric tenderness. EXTREMITIES: No pedal edema. No calf tenderness. NEUROLOGICAL: Patient is awake, alert and oriented x3. Cranial nerves 2 through 12 are grossly intact. Results CBC & Chem 7: 03/25/18 12:10 03/25/18 12:10 Labs: Abnormal Lab Results - Last 24 Hours (Table) 03/25/18 03/25/18 03/25/18 Range/Units 12:10 13:35 23:05 APTT 58.7 H (22.0-30.0) sec Chloride 111 H (98-107) mmol/L BUN 24 H (7-17) mg/dL TSH 0.143 L (0.465-4.680) mIU/L Urine Appearance Cloudy H (Clear) Urine Protein 1+ H (Negative) Urine Ketones 2+ H (Negative) Ur Leukocyte Esterase Moderate H (Negative) Urine WBC 8 H (0-5) /hpf Hyaline Casts 8 H (0-2) /lpf Urine Mucus Moderate H (None) /hpf 03/26/18 Range/Units 05:58 APTT 58.1 H (22.0-30.0) sec Chloride (98-107) mmol/L BUN (7-17) mg/dL TSH (0.465-4.680) mIU/L Urine Appearance (Clear) Urine Protein (Negative) Urine Ketones (Negative) Ur Leukocyte Esterase (Negative) Urine WBC (0-5) /hpf Hyaline Casts (0-2) /lpf Urine Mucus (None) /hpf Thrombosis Risk Factor Assmnt - DVT/VTE Prophylaxis DVT/VTE Prophylaxis: Pharmacologic Prophylaxis ordered - Choose All That Apply Each Risk Factor Represents 2 Points: Age 61-74 years Thrombosis Risk Factor Assessment Total Risk Factor Score: 2 Thrombosis Risk Factor Assessment Level: Low Risk Assessment and Plan Plan: 1. Chest pain with negative troponins. Most likely due to GERD with also complaints of dysphagia. Cardiology consult appreciated. Heparin drip has been discontinued. Continue Imdur 30 mg daily. Patient has been cleared for discharge by cardiology. Patient will have outpatient follow up with Dr. Treadwell. 2. Paroxysmal atrial fibrillation currently in sinus rhythm. Continue Cardizem CD 180 mg daily, Savaysa 60 mg daily. 3. Hyperlipidemia. Continue Lipitor 10 mg daily. 4. Urinary tract infection. Patient started on Keflex 250 mg 3 times daily. Urine culture is in progress. 5. Depression, recurrent with suicidal ideation and history of 2 suicide attempts in the past. Consult with psychiatry. cnc manufacturing engineer added 6. Hypothyroidism. Continue levothyroxine 112 g daily. 7. Hypertension. Continue losartan 25 mg daily, Cardizem CD 180 mg daily. 8. Seizure disorder. Continue Keppra 500 mg twice daily. Keppra level is pending. 9. Excessive sleep of 16-18 hours per day not related to thyroid. Other etiologies will need to be worked up as an outpatient. Sleep hygiene was discussed with the patient. Patient placed as an observation status. Discharge plan: Return home Impression and plan of care have been directed as dictated by the signing physician. Norma Gomez nurse practitioner acting as scribe for signing physician.
[2018-03-26 12:39] VITALS: BP 117/68; PULSE 76; TEMP 97.9
--- NOTE | 2018-03-26 13:38 | P.CRDCN ---
History of Present Illness History of present illness: This is a pleasant [age] female past medical history significant for paroxysmal atrial fibrillation on long-term anticoagulation with loop recorder in place, hypertension and dyslipidemia. She follows with Dr. Majano in the office. We have asked to see her in consultation for symptoms of chest pain. She describes a sharp pain in left precordial region that started yesterday intermittently throughout the day. No specific aggravating or alleviating factors. The pain occurred at rest. There was some radiation into the left shoulder and into the left upper arm at times as well. She describes associated palpitations and mild shortness of breath with this sharp pain. She denies any dizziness, nausea, vomiting or diaphoresis. At the time of my exam she is seen resting comfortably in bed in no acute distress with no further symptoms of ongoing chest discomfort. She states she received a call from the cardiology office on tongue her that she had an episode of atrial fibrillation with rapid ventricular response that subsided on its own. She was sleeping at the time and does not recall feeling any palpitations. She recently had a similar type symptoms of atypical chest discomfort and underwent a Lexiscan stress test in the office December 2017 that revealed negative for reversible ischemia. She also had an echocardiogram at that time that revealed preserved left ventricular systolic function with ejection fraction 55% with mild aortic regurgitation noted. EKG reveals sinus mechanism with no acute ST or T wave abnormalities noted with left axis deviation noted. Telemetry tracings been reviewed and reveal sinus mechanism with one episode of multifocal atrial tachycardia. Chest x-ray is negative for acute cardiopulmonary process. Laboratory data reviewed, WBC 9.1, hemoglobin 13.5, platelets 341, sodium 141, potassium 4.3, creatinine 0.88, magnesium 1.8, cardiac enzymes negative 3, LDL 50, HDL 46, TSH 0.143 with a free T4 of 1.82. Current cardiac medications include subbasal 30 mg daily, atorvastatin 10 mg daily, losartan 25 mg daily, diltiazem 180 mg daily and Imdur 30 mg daily. At the time of my exam: CONSTITUTIONAL: Denies fever. Denies chills. EYES: Denies blurred vision. Denies vision changes. Denies eye pain. EARS, NOSE, MOUTH & THROAT: Denies headache. Denies sore throat. Denies ear pain. CARDIOVASCULAR: Denies chest pain. Denies shortness of breath. Denies orthopnea. Denies PND. Denies palpitations. RESPIRATORY: Denies cough. GASTROINTESTINAL: Denies abdominal pain. Denies diarrhea. Denies constipation. Denies nausea. Denies vomiting. MUSCULOSKELETAL: Denies myalgias. INTEGUMENTARY: Denies pruitis. Denies rash. NEUROLOGIC: Denies numbness. Denies tingling. Denies weakness. PSYCHIATRIC: Denies anxiety. Denies depression. ENDOCRINE: Denies fatigue. Denies weight change. Denies polydipsia. Denies polyurina. GENITOURINARY: Denies burning, hematuria or urgency with micturation. HEMATOLOGIC: Denies history of anemia. Denies bleeding. Blood pressure 117/68 heart rate 76 afebrile maintaining oxygen saturation on room air GENERAL: This is a 72-year-old female in no apparent distress at the time of my examination. HEENT: Head is atraumatic, normocephalic. Pupils are equal, round. Sclerae anicteric. Conjunctivae are clear. Mucous membranes of the mouth are moist. Neck is supple. There is no jugular venous distention. No carotid bruit is heard. LUNGS: Clear to auscultation no wheezes, rales or rhonchi. No chest wall tenderness is noted on palpation or with deep breathing. HEART: Regular rate and rhythm without murmurs, rubs or gallops. S1 and S2 heard. ABDOMEN: Soft, nontender. Bowel sounds are heard. No organomegaly noted. EXTREMITIES: No evidence of peripheral edema and no calf tenderness noted. VASCULAR: Radial and dorsalis pedis pulses palpated, no evidence of clubbing. NEUROLOGIC: Patient is awake, alert and oriented x3. ASSESSMENT Chest pain, atypical for angina. An acute coronary event has some ruled out with no EKG evidence of ischemia negative cardiac enzymes. Recent stress test in the office negative for reversible cardiac ischemia. History of paroxysmal atrial fibrillation on long-term anticoagulation currently maintaining sinus mechanism. Loop recorder in place Hypertension Dyslipidemia Seizure disorder, maintained on Keppra last seizure 2 years ago PLAN An acute coronary event has been ruled out. Recent stress test in the office negative for reversible ischemia. No further cardiac workup at this time. Stable for discharge to follow-up with Dr. Eid as an outpatient. Thank you for this consultation. 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 Majano,HX OF PLANTAR FASCITIS LEFT FOOT, loop recorder History of Any Multi-Drug Resistant Organisms: None Reported Past Surgical History: Appendectomy, Back Surgery, Bariatric Surgery, Cardiac Ablation, Cholecystectomy, Heart Catheterization, Tubal Ligation Additional Past Surgical History / Comment(s): lap band, HX OF EPIDURAL INJ FOR PAIN; cardiac loop recorder Past Anesthesia/Blood Transfusion Reactions: No Reported Reaction Type of Cardiac Device: Loop Device Placement Date:: Past Psychological History: Depression Smoking Status: Never smoker Past Alcohol Use History: Rare Past Drug Use History: Marijuana - Past Family History Mother Family Medical History: CVA/TIA Additional Family Medical History / Comment(s): Massive Stroke at 54 Father Family Medical History: Cancer Medications and Allergies Home Medications Medication Instructions Recorded Confirmed Type Levothyroxine Sodium [Synthroid] 112 mcg PO DAILY 01/20/15 03/25/18 History Edoxaban Tosylate [Savaysa] 60 mg PO DAILY #30 tab 07/16/15 03/25/18 Rx levETIRAcetam [Keppra] 500 mg PO Q12HR #60 tab 07/16/15 03/25/18 Rx Losartan [Cozaar] 25 mg PO DAILY 06/21/17 03/25/18 History Atorvastatin [Lipitor] 10 mg PO DAILY 03/25/18 03/25/18 History Diltiazem HCl [Diltiazem 24Hr ER] 180 mg PO DAILY 03/25/18 03/25/18 History Isosorbide Mononitrate ER [Imdur] 30 mg PO DAILY 03/25/18 03/25/18 History Cephalexin [Keflex] 250 mg PO TID #21 cap 03/26/18 Rx Allergies Allergy/AdvReac Type Severity Reaction Status Date / Time Penicillins AdvReac yeast Verified 03/25/18 13:09 infections Physical Exam Vitals: Vital Signs Temp Pulse Pulse Pulse Resp BP BP 03/26/18 08:00 98.1 F 87 18 121/68 03/26/18 04:00 98.0 F 86 18 109/66 03/26/18 00:00 98.2 F 88 18 135/77 03/25/18 20:00 96.9 F L 86 18 123/69 03/25/18 17:31 97.9 F 87 18 125/75 03/25/18 16:00 80 17 120/75 03/25/18 15:00 78 23 134/86 03/25/18 14:00 75 20 133/82 03/25/18 13:00 73 19 116/79 03/25/18 12:05 85 03/25/18 12:00 87 18 03/25/18 11:57 18 03/25/18 11:49 97.8 F 88 18 112/75 Pulse Ox 03/26/18 08:00 96 03/26/18 04:00 95 03/26/18 00:00 95 03/25/18 20:00 95 03/25/18 17:31 96 03/25/18 16:00 97 03/25/18 15:00 96 03/25/18 14:00 96 03/25/18 13:00 99 03/25/18 12:05 03/25/18 12:00 96 03/25/18 11:57 03/25/18 11:49 98 Intake and Output 03/25/18 03/26/18 03/26/18 22:59 06:59 14:59 Intake Total 240 Balance 240 Intake: Oral 240 Other: # Voids 1 1 Weight 95 kg 93.8 kg Results 03/25/18 12:10 03/25/18 12:10 Cardiac Enzymes 03/25/18 03/25/18 03/25/18 Range/Units 12:10 12:10 17:55 AST 28 (14-36) U/L CK-MB (CK-2) 1.4 1.1 (0.0-2.4) ng/mL Troponin I <0.012 <0.012 (0.000-0.034) ng/mL 03/25/18 Range/Units 23:05 AST (14-36) U/L CK-MB (CK-2) 1.0 (0.0-2.4) ng/mL Troponin I <0.012 (0.000-0.034) ng/mL Coagulation 03/25/18 03/25/18 03/26/18 Range/Units 12:10 23:05 05:58 PT 9.9 (9.0-12.0) sec APTT 26.4 58.7 H 58.1 H (22.0-30.0) sec Lipids 03/26/18 Range/Units 05:58 Triglycerides 84 (<150) mg/dL Cholesterol 113 (<200) mg/dL HDL Cholesterol 46 (40-60) mg/dL CBC 03/25/18 Range/Units 12:10 WBC 9.1 (3.8-10.6) k/uL RBC 4.70 (3.80-5.40) m/uL Hgb 13.5 (11.4-16.0) gm/dL Hct 39.1 (34.0-46.0) % Plt Count 341 (150-450) k/uL Comprehensive Metabolic Panel 03/25/18 Range/Units 12:10 Sodium 141 (137-145) mmol/L Potassium 4.3 (3.5-5.1) mmol/L Chloride 111 H (98-107) mmol/L Carbon Dioxide 22 (22-30) mmol/L BUN 24 H (7-17) mg/dL Creatinine 0.88 (0.52-1.04) mg/dL Glucose 95 (74-99) mg/dL Calcium 9.4 (8.4-10.2) mg/dL AST 28 (14-36) U/L ALT 33 (9-52) U/L Alkaline Phosphatase 123 (38-126) U/L Total Protein 6.5 (6.3-8.2) g/dL Albumin 4.1 (3.5-5.0) g/dL Current Medications Generic Name Dose Route Start Last Admin Trade Name Freq PRN Reason Stop Dose Admin Al Hydroxide/Mg Hydroxide 30 ml 03/25/18 22:14 03/25/18 22:44 Maalox PO 30 ml Q6HR PRN Administration GI Upset Aspirin 325 mg 03/26/18 09:00 03/26/18 08:28 Aspirin PO 325 mg DAILY [facility] Administration Atorvastatin Calcium 10 mg 03/26/18 09:00 03/26/18 08:32 Lipitor PO 10 mg DAILY S[facility] Administration Cephalexin 250 mg 03/25/18 22:00 03/26/18 08:28 Keflex PO 250 mg TID S[facility]AGE Administration Diltiazem HCl 180 mg 03/26/18 09:00 03/26/18 08:29 Cardizem Cd PO 180 mg DAILY S[facility] Administration Docusate Sodium 100 mg 03/25/18 18:21 03/25/18 18:39 Colace PO 100 mg DAILY PRN Administration Constipation Docusate Sodium 100 mg 03/26/18 09:00 03/26/18 08:28 Colace PO 100 mg DAILY S[facility]AGE Administration Heparin Sodium/Sodium Chloride 250 mls @ 10 mls/hr 03/25/18 15:15 03/25/18 16 :13 25,000 unit/ Sodium Chloride IV 10.5 units/kg/hr .Q24H S[facility]AGE 10 mls/hr Administration Protocol 10.5 UNITS/KG/HR Isosorbide Mononitrate 30 mg 03/26/18 09:00 03/26/18 08:30 Imdur PO 30 mg DAILY S[facility] Administration Levetiracetam 500 mg 03/25/18 21:00 03/26/18 08:29 Keppra PO 500 mg Q12HR S[facility] Administration Levothyroxine Sodium 112 mcg 03/26/18 06:30 03/26/18 06:28 Synthroid PO 112 mcg DAILY@0630 S[facility] Administration Losartan Potassium 25 mg 03/26/18 09:00 03/26/18 08:31 Cozaar PO 25 mg DAILY S[facility] Administration Nitroglycerin 0.4 mg 03/25/18 15:07 Nitrostat SUBLINGUAL Q5M PRN Chest Pain Intake and Output 03/25/18 03/26/18 03/26/18 22:59 06:59 14:59 Intake Total 240 Balance 240 Intake: Oral 240 Other: # Voids 1 1 Weight 95 kg 93.8 kg 03/25/18 12:10 03/25/18 12:10
== END 2018-03-26 14:21 | disposition home or self-care (01) ==
LOC: EC 11:45 → 3SCARD 15:13
PROVIDERS: ADMIT Family Medicine; ATTEND Family Medicine
DX: R07.89 Other chest pain (principal); K21.9 Gastro-esophageal reflux disease without esophagitis; I48.0 Paroxysmal atrial fibrillation; E78.5 Hyperlipidemia, unspecified; E03.9 Hypothyroidism, unspecified; I10 Essential (primary) hypertension; N39.0 Urinary tract infection, site not specified; F33.0 Major depressive disorder, recurrent, mild; R45.851 Suicidal ideations; G40.909 Epilepsy, unspecified, not intractable, without status epilepticus; G47.30 Sleep apnea, unspecified; G47.9 Sleep disorder, unspecified; I49.5 Sick sinus syndrome; K59.00 Constipation, unspecified; M19.90 Unspecified osteoarthritis, unspecified site; E66.01 Morbid (severe) obesity due to excess calories; Z79.01 Long term (current) use of anticoagulants; Z79.899 Other long term (current) drug therapy; Z99.89 Dependence on other enabling machines and devices; Z98.84 Bariatric surgery status; Z91.5 Personal history of self-harm; Z95.818 Presence of other cardiac implants and grafts; Z99.81 Dependence on supplemental oxygen; Z79.890 Hormone replacement therapy; Z88.0 Allergy status to penicillin; Z90.49 Acquired absence of other specified parts of digestive tract; Z68.32 Body mass index [BMI] 32.0-32.9, adult
CPT/HCPCS: 96365; 96366 ×2; 96376; 99291; 36415; 93005; 84439; 83880; 80061; 80053; 80177; 82550; 82553; 83735; 84443; 84484; 85025; 85610; 85730 ×2; 81001; 71046; G0378 ×2; J1644 ×2

== ENCOUNTER → 2018-06-09 | Outpatient (CLI) | payer OTHER, MEDICARE ==
[2018-06-09 11:06] LABS: HCT 39.1 % (34.0-46.0); HGB 13.1 gm/dL (11.4-16.0); MCH 27.8 pg (25.0-35.0); MCHC 33.6 g/dL (31.0-37.0); MCV 82.8 fL (80.0-100.0); Mean Platelet Volume 7.2; Platelet Count 342 k/uL (150-450); RBC 4.73 m/uL (3.80-5.40); RDW 12.6 % (11.5-15.5); WBC 7.9 k/uL (3.8-10.6)
[2018-06-09 18:10] LABS: Albumin 4.3 g/dL (3.80-4.90); Albumin/Globulin Ratio 2.53 (1.60-3.17); Anion Gap 8.5 mmol/L (4.00-12.00); Calcium 9.3 mg/dL (8.7-10.3); Carbon Dioxide 23.5 mmol/L (21.6-31.8); Globulin 1.7 g/dL (1.6-3.3); Potassium 4.6 mmol/L (3.5-5.5); Total Bilirubin 0.8 mg/dL (0.3-1.2)
[2018-06-09 19:09] LABS: Hemoglobin A1C 5.5 % (4.0-6.0)
== END ==
LOC: LABWHC1 09:27
PROVIDERS: ATTEND Psychiatry & Neurology Neurology
DX: G40.209 Localization-related (focal) (partial) symptomatic epilepsy and epileptic syndromes with complex partial seizures, not intractable, without status epilepticus (principal)
CPT/HCPCS: 36415; 80053; 80061; 80177; 82550; 83036; 84443; 85027

== ENCOUNTER → 2018-07-14 | Outpatient (CLI) | payer OTHER, MEDICARE | LOC: LABWHC1 11:22 | PROVIDERS: ATTEND Psychiatry & Neurology Neurology | DX: G40.209 Localization-related (focal) (partial) symptomatic epilepsy and epileptic syndromes with complex partial seizures, not intractable, without status epilepticus (principal) | CPT/HCPCS: 36415; 80177 ==

== ENCOUNTER 2018-09-04 12:11 | Day surgery (SDC) | payer BC, MEDICARE ==
[2018-08-30 10:47] VITALS: BMI 34.9
[~2018-09-04 12:11] MED LIST changes: +CLINDAMYCIN 900 MG in DEXTROSE 5% IN WATER 50 ML IVPB ONE; -DEXAMETHASONE SOD PHOSPHATE 10 MG/ML 1 ML VIAL IV ONE; -LACTATED RINGERS 1,000 ML IV SCH; -MIDAZOLAM 2 MG/2 ML VIAL IV PRN; -ONDANSETRON 4 MG/2 ML VIAL IVP ONE; -SCOPOLAMINE 1.5MG/72HR PATCH TRANSDERM ONE; -SODIUM CHLORIDE 0.9% 1,000 ML IV SCH; -fentaNYL (PF) 50 MCG/ML 2 ML AMP IV PRN
[2018-09-04] MEDS ORDERED: FLECAINIDE 50 MG TAB PO STA (14:40)
--- NOTE | 2018-09-04 14:47 | P.PN ---
Progress Note - Text Diagnosis Atrial fibrillation status post cryoablation of the pulmonary veins Loop implant, approaching FELICITA Patient admitted for explantation of the loop monitor When patient arrived in the [facility] she was noted to be tachycardic at about 150 beats a minute Twelve-lead ECG showed a regular superventricular tachycardia and with carotid sinus massage of fast atrial tachycardia with 2:1 conduction was noted The procedure was canceled She was started on flecainide 100 mg by mouth 1 dose stat followed by 50 g twice daily If rescheduled on for an electrical cardioversion, explantation of the loop monitor and implantation of another loop monitor She will need and rhythmic drug therapy but also has underlying sick sinus syndrome and therefore she would need monitoring for this while on flecainide as well as management of atrial fibrillation Following that I will consider an A. fib ablation with linear ablation/CARTO She will continue all other medications including Savaysa
[2018-09-04 15:56] LABS: Basophils % (A) 0 %; Eosinophils # (A) 0.1 k/uL (0-0.7); Eosinophils % (A) 1 %; HCT 36.6 % (34.0-46.0); HGB 12.1 gm/dL (11.4-16.0); Lymphocytes # (A) 2.7 k/uL (1.0-4.8); Lymphocytes % (A) 30 %; MCH 28.4 pg (25.0-35.0); MCHC 33.1 g/dL (31.0-37.0); MCV 85.6 fL (80.0-100.0); Mean Platelet Volume 8.1; Monocytes # (A) 0.4 k/uL (0-1.0); Monocytes % (A) 4 %; Neutrophils # (A) 5.6 k/uL (1.3-7.7); Neutrophils % (A) 63 %; Platelet Count 328 k/uL (150-450); RBC 4.27 m/uL (3.80-5.40); RDW 14.1 % (11.5-15.5); WBC 8.9 k/uL (3.8-10.6)
[2018-09-04 17:00] LABS: Albumin 3.3 g/dL (3.5-5.0); Calcium 8.2 mg/dL (8.4-10.2); Potassium 4.2 mmol/L (3.5-5.1); Total Bilirubin 0.6 mg/dL (0.2-1.3); Total Protein 5.5 g/dL (6.3-8.2)
[2018-09-04 19:46] VITALS: RESP 16
[2018-09-04] MEDS: SODIUM CHLORIDE 0.9% 1,000 ML IV SCH (19:51)
[2018-09-04] MEDS: DILTIAZEM 125 MG in SODIUM CHLORIDE 0.9% 100 ML IV SCH (20:06)
[2018-09-04] MEDS: DIVALPROEX ER 500 MG TAB.ER.24H PO SCH (20:39)
[2018-09-04] MEDS ORDERED: FLECAINIDE 50 MG TAB PO SCH (23:00)
[2018-09-05 05:09] VITALS: TEMP 97.7
[2018-09-05] MEDS: DIVALPROEX ER 500 MG TAB.ER.24H PO SCH (06:25)
[2018-09-05] MEDS: DILTIAZEM 125 MG in SODIUM CHLORIDE 0.9% 100 ML IV SCH (06:26)
[2018-09-05] MEDS ORDERED: LEVOTHYROXINE 112 MCG TAB PO SCH (06:30)
[2018-09-05] MEDS ORDERED: KETAMINE 10 MG/ML 20 ML VIAL ONE (08:24)
[2018-09-05] MEDS ORDERED: PROPOFOL 10 MG/ML 20 ML VIAL IV ONE (08:24)
[2018-09-05] MEDS ORDERED: MIDAZOLAM 2 MG/2 ML VIAL ONE (08:24)
[2018-09-05] MEDS ORDERED: ePHEDrine SULFATE/0.9% NACL/PF 50 MG/5 ML SYRINGE IV ONE (08:24)
[2018-09-05] MEDS ORDERED: fentaNYL (PF) 50 MCG/ML 2 ML AMP ONE (08:24)
[2018-09-05] MEDS ORDERED: CLINDAMYCIN 900 MG in DEXTROSE 5% IN WATER 50 ML IVPB STA ×2 (08:40)
[2018-09-05] MEDS ORDERED: IV FLUID CONTINUATION 1,000 ML IV ONE (08:42)
[2018-09-05] MEDS ORDERED: EDOXABAN TOSYLATE 60 MG TABLET PO SCH (09:00)
[2018-09-05] MEDS ORDERED: MAGNESIUM OXIDE 400 MG TAB PO SCH (09:00)
[2018-09-05] MEDS ORDERED: LOSARTAN 25 MG TAB PO SCH (09:00)
[2018-09-05] MEDS ORDERED: FLECAINIDE 50 MG TAB PO SCH (09:00)
[2018-09-05] MEDS ORDERED: CHOLECALCIFEROL 1,000 UNIT TAB PO SCH (09:00)
[2018-09-05] MEDS ORDERED: ATORVASTATIN 10 MG TAB PO SCH (09:00)
[2018-09-05] MEDS ORDERED: LIDOCAINE 1% INJ 10MG/ML (10 ML MDV) SQ ONE (09:04)
--- NOTE | 2018-09-05 09:28 | P.HPCAR ---
History of Present Illness Please see full dictation in the chart This is an update Impression was admitted yesterday for explantation of a loop monitor However she was found to be in a supraventricular tachycardia at 149 beats a minute Carotid sinus massage revealed a rapid atrial tachycardia at a cycle length of 200 ms 2-1 atrial tachycardia/PAT with 2-1 block She was treated with flecainide 100 mg but she did not convert to sinus rhythm and her ventricular rate was rapid the patient was admitted to observation overnight for electrical cardioversion today after receiving 3 doses of flecainide She was also treated with IV Cardizem This morning she was doing well. She was brought in for electrical cardioversion Explantation of loop monitor and implantation of a new loop monitor She'll be discharged home today on flecainide 100 mg twice daily along with Edoxaban and diltiazem 180 mg daily long-acting along with the other medications and we will see her in the office in 3-4 weeks Physical Exam Vitals: Vital Signs Temp Pulse Resp BP Pulse Ox 09/05/18 06:27 136 H 105/73 09/05/18 05:08 97.7 F 68 16 90/58 97 09/05/18 05:00 79 09/04/18 23:47 97.9 F 125 H 16 94/62 96 09/04/18 23:40 117 H 09/04/18 22:18 137 H 115/67 09/04/18 21:18 97/69 09/04/18 20:39 137 H 109/71 09/04/18 19:45 131 H 16 112/68 95 09/04/18 17:35 97.9 F 132 H 18 119/80 97 09/04/18 17:00 20 101/71 99 09/04/18 16:00 20 107/77 99 09/04/18 15:25 20 119/79 99 09/04/18 12:43 97.8 F 20 129/71 99 Intake and Output 09/04/18 09/05/18 09/05/18 22:59 06:59 14:59 Intake Total 436 263.333 0 Output Total 250 Balance 186 263.333 0 Intake: Intake, IV Titration 263.333 Amount Diltiazem 125 mg In 103.333 Sodium Chloride 0.9% 100 ml @ 10 MG/HR 10 mls/hr IV .[id number] [facility] Rx#: [id number] Sodium Chloride 0.9% 1, 160 000 ml @ 20 mls/hr IV . Q24H [facility] Rx#:[id number] Oral 436 0 Output: Urine 250 Other: # Voids 2 0 Weight 97.2 kg Past Medical History Past Medical History: Atrial Fibrillation, Hypertension, Osteoarthritis (OA), Seizure Disorder, Sleep Apnea/CPAP/BIPAP, Thyroid Disorder Additional Past Medical History / Comment(s): tachycardia bradycardia syndrome/mild sick sinus syndrome, paroxysmal atrial fibrillation, loop recorder, Last seizure 2 yrs ago., Sleep apnea (does not use her c-pap)., Gastric Bypass., History of Any Multi-Drug Resistant Organisms: None Reported Past Surgical History: Appendectomy, Back Surgery, Bariatric Surgery, Cardiac Ablation, Cholecystectomy, Heart Catheterization, Tubal Ligation Additional Past Surgical History / Comment(s): HX OF EPIDURAL INJ FOR PAIN; cardiac loop recorder, states "Stapling Gastric Bypass" Past Anesthesia/Blood Transfusion Reactions: No Reported Reaction, Motion Sickness Type of Cardiac Device: Loop Device Placement Date:: Past Psychological History: No Psychological Hx Reported Smoking Status: Never smoker Past Alcohol Use History: Rare Additional Past Alcohol Use History / Comment(s): . Past Drug Use History: Marijuana Additional Drug Use History / Comment(s): occasional Marijuana use. - Past Family History Mother Family Medical History: CVA/TIA Additional Family Medical History / Comment(s): Massive Stroke at 54 Father Family Medical History: Cancer Physical Examination Vital Signs Temp Pulse Resp BP Pulse Ox 09/05/18 06:27 136 H 105/73 09/05/18 05:08 97.7 F 68 16 90/58 97 09/05/18 05:00 79 09/04/18 23:47 97.9 F 125 H 16 94/62 96 09/04/18 23:40 117 H 09/04/18 22:18 137 H 115/67 09/04/18 21:18 97/69 09/04/18 20:39 137 H 109/71 09/04/18 19:45 131 H 16 112/68 95 09/04/18 17:35 97.9 F 132 H 18 119/80 97 09/04/18 17:00 20 101/71 99 09/04/18 16:00 20 107/77 99 09/04/18 15:25 20 119/79 99 06/24/19 12:43 97.8 F 20 129/71 99 Intake and Output 09/04/18 09/05/18 09/05/18 22:59 06:59 14:59 Intake Total 436 263.333 0 Output Total 250 Balance 186 263.333 0 Intake: Intake, IV Titration 263.333 Amount Diltiazem 125 mg In 103.333 Sodium Chloride 0.9% 100 ml @ 10 MG/HR 10 mls/hr IV .[id number] [facility] Rx#: [id number] Sodium Chloride 0.9% 1, 160 000 ml @ 20 mls/hr IV . Q24H [facility] Rx#:[id number] Oral 436 0 Output: Urine 250 Other: # Voids 2 0 Weight 97.2 kg Results 09/04/18 15:10 09/04/18 16:30 Cardiac Enzymes 09/04/18 Range/Units 16:30 AST 49 H (14-36) U/L CBC 09/04/18 Range/Units 15:10 WBC 8.9 (3.8-10.6) k/uL RBC 4.27 (3.80-5.40) m/uL Hgb 12.1 (11.4-16.0) gm/dL Hct 36.6 (34.0-46.0) % Plt Count 328 (150-450) k/uL Comprehensive Metabolic Panel 09/04/18 Range/Units 16:30 Sodium 139 (137-145) mmol/L Potassium 4.2 (3.5-5.1) mmol/L Chloride 108 H (98-107) mmol/L Carbon Dioxide 25 (22-30) mmol/L BUN 23 H (7-17) mg/dL Creatinine 0.77 (0.52-1.04) mg/dL Glucose 129 H (74-99) mg/dL Calcium 8.2 L (8.4-10.2) mg/dL AST 49 H (14-36) U/L ALT 33 (9-52) U/L Alkaline Phosphatase 76 (38-126) U/L Total Protein 5.5 L (6.3-8.2) g/dL Albumin 3.3 L (3.5-5.0) g/dL Current Medications Generic Name Dose Route Start Last Admin Trade Name Freq PRN Reason Stop Dose Admin Atorvastatin Calcium 10 mg 09/05/18 09:00 09/05/18 06:25 Lipitor PO 10 mg DAILY SAVAGE Administration Cholecalciferol 5,000 unit 09/05/18 09:00 09/05/18 06:25 Vitamin D3 (25 Mcg = 1000 Iu) PO 5,000 unit DAILY S[facility]AGE Administration Divalproex Sodium 500 mg 09/04/18 21:00 09/05/18 06:25 Depakote Er PO 500 mg BID S[facility]AGE Administration Edoxaban 60 mg 09/05/18 09:00 09/05/18 06:26 Savaysa PO 60 mg DAILY AS[facility]AGE Administration Flecainide Acetate 100 mg 09/05/18 09:00 09/05/18 06:24 Tambocor PO 100 mg Q12HR S[facility]AGE Administration Sodium Chloride 1,000 mls @ 20 mls/hr 09/04/18 06:18 09/04/18 19:51 Saline 0.9% IV 20 mls/hr .Q24H [facility] Administration Diltiazem HCl 125 mg/ Sodium 125 mls @ 10 mls/hr 09/04/18 19:00 09/05/18 06:26 Chloride IV 10 mg/hr .[id number] S[facility]AGE 10 mls/hr Administration 10 MG/HR Clindamycin Phosphate 900 mg/ 56 mls @ 50 mls/hr 09/05/18 08:40 09/05/18 09:03 Dextrose/Water IVPB 09/05/18 09:47 0 mls ONCE STA Administration Levothyroxine Sodium 112 mcg 09/05/18 06:30 09/05/18 06:25 Synthroid PO 112 mcg DAILY@0630 S[facility]AGE Administration Losartan Potassium 25 mg 09/05/18 09:00 09/05/18 06:25 Cozaar PO 25 mg DAILY S[facility] Administration Magnesium Oxide 400 mg 09/05/18 09:00 09/05/18 06:25 Mag-Ox PO 400 mg DAILY S[facility]AGE Administration Intake and Output 09/04/18 09/05/18 09/05/18 22:59 06:59 14:59 Intake Total 436 263.333 0 Output Total 250 Balance 186 263.333 0 Intake: Intake, IV Titration 263.333 Amount Diltiazem 125 mg In 103.333 Sodium Chloride 0.9% 100 ml @ 10 MG/HR 10 mls/hr IV .[id number] [facility] Rx#: [id number] Sodium Chloride 0.9% 1, 160 000 ml @ 20 mls/hr IV . Q24H [facility] Rx#:[id number] Oral 436 0 Output: Urine 250 Other: # Voids 2 0 Weight 97.2 kg 09/04/18 15:10 09/04/18 16:30
--- NOTE | 2018-09-05 09:29 | P.DS ---
Providers Attending physician: Silver Majano Primary care physician: [facility] Course: Patient was admitted to the hospital yesterday for explantation of a loop monitor she was found to be in a supraventricular tachycardia/bradycardia with 2-1 AV block She was admitted to observation, loaded with oral flecainide and cardioverted this morning IV Cardizem was discontinued Oral Cardizem will be continued Savaysa will be continued She underwent successful electrical cardioversion to sinus rhythm The old loop monitor which is at FELICITA was explanted and the new loop monitor was implanted a She will be discharged home later today on current medications including flecainide and we will see in the office in 5-7 days for suture removal and I will see her again in about 3-4 weeks We will plan an A. fib ablation/extrapulmonary foci Plan - Discharge Summary Discharge Rx Participant: No New Discharge Prescriptions: Continue Levothyroxine Sodium [Synthroid] 112 mcg PO DAILY Edoxaban Tosylate [Savaysa] 60 mg PO DAILY #30 tab Losartan [Cozaar] 25 mg PO DAILY Isosorbide Mononitrate ER [Imdur] 30 mg PO DAILY Diltiazem HCl [Diltiazem 24Hr ER (CD)] 180 mg PO DAILY Atorvastatin [Lipitor] 10 mg PO DAILY Divalproex ER [Depakote ER] 500 mg PO BID Magnesium 500 mg PO DAILY Cholecalciferol (Vitamin D3) [Vitamin D3] 5,000 unit PO DAILY Tart Bruno 2,000 mg PO DAILY Flecainide [Tambocor] 100 mg PO Q12HR #180 tablet Discharge Medication List Levothyroxine Sodium [Synthroid] 112 mcg PO DAILY 01/20/15 [History] Edoxaban Tosylate [Savaysa] 60 mg PO DAILY #30 tab 07/16/15 [Rx] Losartan [Cozaar] 25 mg PO DAILY 06/21/17 [History] Atorvastatin [Lipitor] 10 mg PO DAILY 03/25/18 [History] Diltiazem HCl [Diltiazem 24Hr ER (CD)] 180 mg PO DAILY 03/25/18 [History] Isosorbide Mononitrate ER [Imdur] 30 mg PO DAILY 03/25/18 [History] Cholecalciferol (Vitamin D3) [Vitamin D3] 5,000 unit PO DAILY 08/30/18 [History] Divalproex ER [Depakote ER] 500 mg PO BID 08/30/18 [History] Magnesium 500 mg PO DAILY 08/30/18 [History] Tart Bruno 2,000 mg PO DAILY 08/30/18 [History] Flecainide [Tambocor] 100 mg PO Q12HR #180 tablet 09/05/18 [Rx] Follow up Appointment(s)/Referral(s): Silver Majano MD [STAFF PHYSICIAN] - 1 Week (Device clinic follow-up within 7 days for suture removal Follow-up with Dr. Eid in 4 weeks/Clarissa Walls) Patient Instructions/Handouts: Flecainide (By mouth) Activity/Diet/Wound Care/Special Instructions: Please monitor your heart rate. Report your heart rate to cardiology if it falls below 60. Return to the hospital with any symptoms of chest pain, shortness of breath, palpations and dizziness. Keep wound dry for 5-7 days Suture removal in 5-7 days New medication flecainide 100 mg twice daily Continue all other medications Continue Patricia
[2018-09-05] MEDS: SODIUM CHLORIDE 0.9% 1,000 ML IV SCH (10:31)
[2018-09-05 11:50] VITALS: BP 99/57; PULSE 75
== END 2018-09-05 12:23 | disposition home or self-care (01) ==
LOC: CATHEP 12:11 → 3SCARD 17:02 → CATHEP 09-05 12:23
PROVIDERS: ATTEND Internal Medicine Clinical Cardiac Electrophysiology
DX: I48.0 Paroxysmal atrial fibrillation (principal); I47.1 Supraventricular tachycardia; Z53.8 Procedure and treatment not carried out for other reasons; I49.5 Sick sinus syndrome; I10 Essential (primary) hypertension; E03.9 Hypothyroidism, unspecified; M19.90 Unspecified osteoarthritis, unspecified site; G47.33 Obstructive sleep apnea (adult) (pediatric); Z99.89 Dependence on other enabling machines and devices; G40.909 Epilepsy, unspecified, not intractable, without status epilepticus; Z98.84 Bariatric surgery status; Z90.49 Acquired absence of other specified parts of digestive tract; Z98.51 Tubal ligation status; Z82.3 Family history of stroke; Z79.02 Long term (current) use of antithrombotics/antiplatelets; Z79.890 Hormone replacement therapy; Z79.899 Other long term (current) drug therapy; Z88.0 Allergy status to penicillin
CPT/HCPCS: 92960; 33285; 33286; 80053; 84443; 85025; C1764; J2250; J3010; J2001; J2704

== ENCOUNTER 2018-10-17 09:14 | Emergency (ER) | payer BC, MEDICARE ==
[2018-10-17 09:19] VITALS: TEMP 98
--- NOTE | 2018-10-17 10:01 | ED ---
Lower Extremity Injury HPI - General Chief Complaint: Extremity Injury, Lower Stated Complaint: Ankle injury Time Seen by Provider: 10/17/18 09:29 Source: patient Mode of arrival: wheelchair Limitations: no limitations - History of Present Illness Initial Comments: Patient is a 73-year-old female presenting to the emergency Department with complaints of left foot and ankle pain since this morning. Patient states she tripped over a bathroom rug and twisted her left foot. Patient is having pain on the lateral aspect of her left foot and ankle. Patient has a previous history of a fracture in her left ankle many years ago. Patient denies hitting her head in the fall. No other complaints of pain at this time. - Related Data Home Medications Medication Instructions Recorded Confirmed Levothyroxine Sodium [Synthroid] 112 mcg PO DAILY 01/20/15 10/17/18 Losartan [Cozaar] 25 mg PO DAILY 06/21/17 10/17/18 Atorvastatin [Lipitor] 10 mg PO DAILY 03/25/18 10/17/18 Diltiazem HCl [Diltiazem 24Hr ER 180 mg PO DAILY 03/25/18 10/17/18 (CD)] Isosorbide Mononitrate ER [Imdur] 30 mg PO DAILY 03/25/18 10/17/18 Divalproex ER [Depakote ER] 500 mg PO BID 08/30/18 10/17/18 Tart Bruno 2,000 mg PO DAILY 08/30/18 10/17/18 Cholecalciferol [Vitamin D3 (25 1,000 unit PO DAILY 10/17/18 10/17/18 Mcg = 1000 Iu)] Loratadine [Claritin] 10 mg PO DAILY 10/17/18 10/17/18 Magnesium Oxide [Hampton] 500 mg PO DAILY 10/17/18 10/17/18 Previous Rx's Medication Instructions Recorded Edoxaban Tosylate [Savaysa] 60 mg PO DAILY #30 tab 07/16/15 Flecainide [Tambocor] 100 mg PO Q12HR #180 tablet 09/05/18 Allergies Allergy/AdvReac Type Severity Reaction Status Date / Time Penicillins AdvReac yeast Verified 10/17/18 09:25 infections Review of Systems ROS Statement: Those systems with pertinent positive or pertinent negative responses have been documented in the HPI. ROS Other: All systems not noted in ROS Statement are negative. Past Medical History Past Medical History: Atrial Fibrillation, Hypertension, Osteoarthritis (OA), Seizure Disorder, Sleep Apnea/CPAP/BIPAP, Thyroid Disorder Additional Past Medical History / Comment(s): tachycardia bradycardia syndrome/mild sick sinus syndrome, paroxysmal atrial fibrillation, loop recorder, Last seizure 2 yrs ago., Sleep apnea (does not use her c-pap)., Gastric Bypass., See Cardiology H & P History of Any Multi-Drug Resistant Organisms: None Reported Past Surgical History: Appendectomy, Back Surgery, Bariatric Surgery, Cardiac Ablation, Cholecystectomy, Heart Catheterization, Tubal Ligation Additional Past Surgical History / Comment(s): HX OF EPIDURAL INJ FOR PAIN; cardiac loop recorder, states "Stapling Gastric Bypass" Past Anesthesia/Blood Transfusion Reactions: No Reported Reaction, Motion Sickness Type of Cardiac Device: Loop Device Placement Date:: Past Psychological History: No Psychological Hx Reported Smoking Status: Never smoker Past Alcohol Use History: Rare Past Drug Use History: None Reported, Marijuana - Past Family History Mother Family Medical History: CVA/TIA Additional Family Medical History / Comment(s): Massive Stroke at 54 Father Family Medical History: Cancer General Exam - General Exam Comments Initial Comments: GENERAL: Well-appearing, well-nourished and in no acute distress. HEAD: Atraumatic, normocephalic. EYES: Pupils equal round and reactive to light, extraocular movements intact, sclera anicteric, conjunctiva are normal. ENT: TMs normal, nares patent, oropharynx clear without exudates. Moist mucous membranes. NECK: Normal range of motion, supple without lymphadenopathy or JVD. LUNGS: Breath sounds clear to auscultation bilaterally and equal. No wheezes rales or rhonchi. HEART: Regular rate and rhythm without murmurs, rubs or gallops. ABDOMEN: Soft, nontender, normoactive bowel sounds. No guarding, no rebound. No masses appreciated. : Deferred EXTREMITIES: Patient has pain lateral malleolus of the left ankle, and pain over the head of the fifth metatarsal. There is some general swelling of the left ankle. Pain at end range of motion. Neurovascular intact. No clubbing or cyanosis. NEUROLOGICAL: Cranial nerves II through XII grossly intact. Normal speech, normal gait. PSYCH: Normal mood, normal affect. SKIN: Warm, Dry, normal turgor, no rashes or lesions noted. Limitations: no limitations Course Vital Signs 10/17/18 10/17/18 09:16 10:54 Temperature 98.0 F Pulse Rate 63 85 Respiratory 18 16 Rate Blood Pressure 151/79 124/74 O2 Sat by Pulse 98 98 Oximetry Medical Decision Making - Medical Decision Making Patient is a 73-year-old female complaints of left foot and ankle pain since this morning. Patient tripped over a rug. On exam patient has tenderness over the base of the fifth metatarsal left foot. Patient has mild swelling present. Left foot x-ray reveals an acute nondisplaced transversely oriented fracture of the base of the fifth metatarsal with soft tissue swelling. There is some soft tissue swelling over the medial malleolus. No acute fracture seen in the ankle. Patient will be placed in a short leg splint, nonweightbearing, and will follow up with orthopedics tomorrow. The patient is in agreement with this plan. Return parameters were discussed with the patient she verbalized understanding. Patient will be discharged home. Case discussed with Dr. Stringer who agrees with plan of care. Disposition Clinical Impression: Fracture of base of fifth metatarsal bone of left foot Disposition: HOME SELF-CARE Condition: Stable Instructions (If sedation given, give patient instructions): Foot Fracture in Adults (ED) Additional Instructions: Please return to the Emergency Department if symptoms worsen or any other concerns. Remain nonweightbearing until orthopedic follow-up, ice, elevation, Tylenol for pain. Follow up with orthopedics tomorrow. Is patient prescribed a controlled substance at d/c from ED?: No Referrals: Osbaldo Betts MD [Primary Care Provider] - 1-2 days Enoch Burkett MD [Medical Doctor] - 1-2 days
--- NOTE | 2018-10-17 10:06 | XR ---
EXAMINATION TYPE: XR ankle complete LT DATE OF EXAM: 10/17/2018 COMPARISON: None HISTORY: Pain following fall TECHNIQUE: Three-view left ankle FINDINGS: There is prominent soft tissue swelling over the medial malleolus. A displaced fracture is not identified. The ankle mortise is intact. Large plantar calcaneal heel spur is present. Note is made of a partially visualized base of the fifth metatarsal fracture. IMPRESSION: 1. Prominent soft tissue swelling medial malleolus. 2. Nondisplaced Base of the fifth metatarsal fracture. 3. Follow-up study 710 days from acute trauma could be performed if there is continued pain within th e ankle.
--- NOTE | 2018-10-17 10:11 | XR ---
EXAMINATION TYPE: XR foot complete LT DATE OF EXAM: 10/17/2018 CLINICAL HISTORY: Left foot pain after fall TECHNIQUE: Frontal, lateral, and oblique images of the left foot are obtained. COMPARISON: Ankle radiograph's of the same date FINDINGS: Acute fracture of the base of the fifth metatarsal is seen, nondisplaced and noncomminuted. This is transversely oriented. There is a hallux valgus deformity and degenerative change of the fir st metatarsophalangeal joint with lateral subluxation of the first through fourth metatarsophalangeal joints. Opposing surface sclerosis and bony proliferative change are also seen metatarsal tarsal jennifer nts. Postsurgical change of the left proximal first phalanx. Soft tissue swelling is seen of the lef t foot most focal over the lateral mid foot. Small plantar heel spur is also seen. IMPRESSION: Acute nondisplaced transversely oriented fracture of the base of the fifth metatarsal wit h soft tissue swelling of the left foot most marked for site. Additional findings as described above.
[2018-10-17] MEDS ORDERED: ACET/COD 300 MG/30 MG STARTER PACK 6 TAB BTL PO STA (10:47)
[2018-10-17 10:57] VITALS: BP 124/74; PULSE 85; RESP 16
== END 2018-10-17 11:20 | disposition home or self-care (01) ==
LOC: EC 09:14
DX: S92.352A Displaced fracture of fifth metatarsal bone, left foot, initial encounter for closed fracture (principal); G47.30 Sleep apnea, unspecified; I10 Essential (primary) hypertension; G40.909 Epilepsy, unspecified, not intractable, without status epilepticus; I48.0 Paroxysmal atrial fibrillation; Z79.890 Hormone replacement therapy; Z79.899 Other long term (current) drug therapy; Z88.0 Allergy status to penicillin; Z98.84 Bariatric surgery status; Z95.5 Presence of coronary angioplasty implant and graft; Z98.890 Other specified postprocedural states; X50.9XXA Other and unspecified overexertion or strenuous movements or postures, initial encounter; Y92.002 Bathroom of unspecified non-institutional (private) residence as the place of occurrence of the external cause
CPT/HCPCS: 29515; 99283

== ENCOUNTER → 2018-10-21 | Outpatient (CLI) | payer BC, MEDICARE ==
[2018-10-21 08:37] LABS: HCT 35.5 % (34.0-46.0); HGB 11.5 gm/dL (11.4-16.0); MCH 29.1 pg (25.0-35.0); MCHC 32.4 g/dL (31.0-37.0); MCV 89.9 fL (80.0-100.0); Platelet Count 317 k/uL (150-450); RBC 3.95 m/uL (3.80-5.40); RDW 13.1 % (11.5-15.5); WBC 6.5 k/uL (3.8-10.6)
[2018-10-21 08:59] LABS: Potassium 4.1 mmol/L (3.5-5.1)
== END | disposition home or self-care (01) ==
LOC: LABPAT 08:18
PROVIDERS: ATTEND Internal Medicine Clinical Cardiac Electrophysiology
DX: Z01.812 Encounter for preprocedural laboratory examination (principal); I48.0 Paroxysmal atrial fibrillation; I49.5 Sick sinus syndrome
CPT/HCPCS: 36415; 80051; 82565; 82947; 84520; 85027

== ENCOUNTER → 2018-10-21 | Outpatient (CLI) | payer BC, MEDICARE | END | disposition home or self-care (01) | LOC: LABWHC1 08:21 | PROVIDERS: ATTEND Orthopaedic Surgery | DX: S92.355A Nondisplaced fracture of fifth metatarsal bone, left foot, initial encounter for closed fracture (principal); E55.9 Vitamin D deficiency, unspecified | CPT/HCPCS: 36415; 82306 ==

== ENCOUNTER 2018-10-31 11:51 | Day surgery (SDC) | payer BC, MEDICARE ==
[2018-10-25 16:04] VITALS: BMI 33.2
[2018-10-31] MEDS: SODIUM CHLORIDE 0.9% 1,000 ML IV SCH (12:27)
--- NOTE | 2018-10-31 13:30 | P.HPCAR ---
History of Present Illness Patient is a 73-year-old female with a past medical history of persistent atrial fibrillation status post pulmonary vein isolation, hypertension who presents for atrial fibrillation ablation. Patient has had increasing episodes of symptomatic atrial fibrillation causing her to feel fatigued. She was started on a low-dose of flecainide and low-dose calcium channel blockers but has a tendency to have sick sinus syndrome and bradycardia with beta blockers and AV kina blocking drugs which limits her options for drug therapy, therefore atrial fibrillation ablation of extra pulmonary foci was recommended. Patient is seen and examined resting comfortably in bed. She recently fractured her left ankle and is being treated conservatively. Denies any chest pain, shortness of breath, orthopnea, PND, fevers, chills, recent infections, cough, nausea or vomiting or diarrhea. States she's feeling well and ready to proceed with the procedure. WBC 6.5, hemoglobin 11.5, platelets 317, potassium 4.1, BUN 17, creatinine 0.81 Temperature 97.8F, pulse 78, respirations 18, blood pressure 149/68, oxygen saturation 100% on room air Patient seen and examined resting comfortably in bed, in no acute distress Lungs clear to auscultation bilaterally, no wheezing, rhonchi or crackles appreciated Heart is regular, normal S1-S2, no murmurs appreciated No lower extremity edema, left ankle boot in place No elevated JVD Abdomen soft and nontender Impression Symptomatic persistent atrial fibrillation, breakthrough episodes after prior A. fib ablation Sick sinus syndrome Hypertension Plan Proceed with atrial fibrillation ablation Physical Exam Vitals: Vital Signs Temp Pulse Resp BP Pulse Ox 10/31/18 12:24 97.8 F 78 18 149/68 100 Intake and Output 10/30/18 10/31/18 10/31/18 22:59 06:59 14:59 Intake Total 20 Balance 20 Intake: IV 20 Past Medical History Past Medical History: Atrial Fibrillation, Hypertension, Osteoarthritis (OA), Seizure Disorder, Sleep Apnea/CPAP/BIPAP, Thyroid Disorder Additional Past Medical History / Comment(s): SEE DR GRIMES'S H&P. tachycardia bradycardia syndrome/mild sick sinus syndrome, paroxysmal atrial fibrillation, loop recorder, Last seizure 2 yrs ago., Sleep apnea (does not use her c-pap)., Gastric Bypass. History of Any Multi-Drug Resistant Organisms: None Reported Past Surgical History: Appendectomy, Back Surgery, Bariatric Surgery, Cardiac Ablation, Cholecystectomy, Heart Catheterization, Tubal Ligation Additional Past Surgical History / Comment(s): HX OF EPIDURAL INJ FOR PAIN; cardiac loop recorder, states "Stapling Gastric Bypass" Past Anesthesia/Blood Transfusion Reactions: No Reported Reaction, Motion Sickness Type of Cardiac Device: Loop Device Placement Date:: Smoking Status: Never smoker - Past Family History Mother Family Medical History: CVA/TIA Additional Family Medical History / Comment(s): Massive Stroke at 54 Father Family Medical History: Cancer Physical Examination Vital Signs Temp Pulse Resp BP Pulse Ox 10/31/18 12:24 97.8 F 78 18 149/68 100 Intake and Output 10/30/18 10/31/18 10/31/18 22:59 06:59 14:59 Intake Total 20 Balance 20 Intake: IV 20 Results Current Medications Generic Name Dose Route Start Last Admin Trade Name Freq PRN Reason Stop Dose Admin Sodium Chloride 1,000 mls @ 20 mls/hr 10/31/18 06:15 10/31/18 12:27 Saline 0.9% IV 20 mls .Q24H SAVAGE Administration Intake and Output 10/30/18 10/31/18 10/31/18 22:59 06:59 14:59 Intake Total 20 Balance 20 Intake: IV 20
[2018-10-31] MEDS ORDERED: PROPOFOL 10 MG/ML 20 ML VIAL IV ONE (13:40)
[2018-10-31] MEDS ORDERED: ROCURONIUM BROMIDE 10 MG/ML 10 ML VIAL IV ONE (13:40)
[2018-10-31] MEDS ORDERED: fentaNYL (PF) 50 MCG/ML 2 ML AMP ONE (13:40)
[2018-10-31] MEDS ORDERED: ONDANSETRON 4 MG/2 ML VIAL ONE (13:40)
[2018-10-31] MEDS ORDERED: PHENYLEPHRINE-0.9% NACL SYG 1 MG/10 ML SYRINGE ONE (13:40)
[2018-10-31] MEDS ORDERED: GLYCOPYRROLATE 0.2 MG/ML 2 ML VIAL ONE (13:40)
[2018-10-31] MEDS ORDERED: PROTAMINE SULFATE 10 MG/ML 5 ML VIAL IV ONE (13:40)
[2018-10-31] MEDS ORDERED: HEPARIN SODIUM,PORCINE 5,000 UNIT/ML 1 ML VIAL ONE (13:40)
[2018-10-31] MEDS ORDERED: ISOPROTERENOL 250 MCG/1.25 ML SYR IV ONE (13:40)
[2018-10-31] MEDS ORDERED: MIDAZOLAM 2 MG/2 ML VIAL ONE (13:40)
[2018-10-31] MEDS ORDERED: NEOSTIGMINE 1 MG/ML 10 ML VIAL ONE (13:40)
[2018-10-31] MEDS ORDERED: HEPARIN SOD,PORK IN 0.45% NACL 25,000 UNIT in 0.45% NACL 1 250ML.BAG IV ONE (14:00)
[2018-10-31] MEDS ORDERED: LIDOCAINE 1% INJ 10MG/ML (20 ML MDV) SQ ONE (14:30)
[2018-10-31] MEDS ORDERED: HEPARIN SODIUM (1,000 UNIT/ML) 1,000 UNIT in SODIUM CHLORIDE 0.9% 1,000 ML IRRIGATION ONE (14:55)
[2018-10-31] MEDS ORDERED: HYDROcodone/APAP 5-325MG 1 EACH TAB PO PRN (16:33)
[2018-10-31] MEDS ORDERED: ACETAMINOPHEN TAB 325 MG TAB PO PRN (16:33)
[2018-10-31] MEDS ORDERED: ACETAMINOPHEN IV (For NPO) 1,000 MG in EMPTY BAG 1 BAG IVPB ONE (17:00)
[2018-10-31] MEDS: HYDROmorphone 1 MG/ML 1 ML SYRINGE IVP ONE ×2 (17:36→17:59)
[2018-10-31] MEDS ORDERED: HYDROmorphone 0.5 MG/0.5 ML SYRINGE IVP PRN (18:21)
[2018-10-31] MEDS: FLECAINIDE 50 MG TAB PO SCH (19:51)
[2018-10-31] MEDS: DIVALPROEX ER 500 MG TAB.ER.24H PO SCH (19:52)
--- NOTE | 2018-11-01 00:05 | PCN ---
PROCEDURE NOTE Fang Mcbride is a 73-year-old female who has a history of cryoablation last year. She started experiencing palpitations and had a loop monitor that showed paroxysms of atrial fibrillation. She has a history of persistent atrial fibrillation and the diagnosis was persistent atrial fibrillation. She was brought in for an EP study and ablation for atrial fibrillation. The patient was brought to the EP lab in a fasting state. Written informed consent was obtained prior to the procedure. The right and left groins were prepped and draped as per protocol. Venous sheaths were placed in the right and left femoral veins, and via these diagnostic and mapping ablation catheters were placed. Intracardiac echocardiography catheter was placed. An intracardiac echo revealed absence of any left atrial appendage thrombus. No pericardial effusion. Normal LV function. Dilated/enlarged left atrium. Coronary sinus catheter was placed. Later the catheter was placed in the high right atrium, His bundle area RV. Left and right transseptal catheterization was performed. RA pressure 16 x 0 x 5 mmHg. LV pressure 18 x 3 x 10 mmHg. Transseptal access was obtained. A PentaRay catheter was placed in the left atrium and 3D electroanatomic mapping with voltage mapping was performed. The voltage map revealed that the veins were completely isolated at an ostial level. Fractionated electrograms were noted along the roof and along the anterior wall. Linear ablation was first performed in the anterior septum bordering the carine between the right superior and right inferior pulmonary vein, and the linear ablation was performed at the atrial level from the roof down to the 6 o'clock position in the right inferior pulmonary vein. A complete line of block was made and noncapture was noted along the RF line and exit block was noted. Following that, a roof line was made for left atrial roof reentry. Complete line of block was made once again with pacing techniques, and noncapture was noted. The roof line was made from the right superior to the left superior veins, slightly anteriorly to avoid posterior wall. One lines were made. High-dose Isuprel was used. Pacing used. HRI pacing was used. CS pacing was used. No atrial fibrillation was induced despite high-dose Isuprel. Sinus node recovery times at 600 and 500 milliseconds were 1136 and 785 milliseconds. AV node Wenckebach block 400 milliseconds. VA Wenckebach block less than 300 milliseconds on Isuprel. Patient tolerated the procedure well without any acute complications. There was no pericardial effusion at the end of the procedure. All catheters were removed. Heparin was discontinued. The patient tolerated the procedure well without any acute complications. PLAN: Continue anticoagulation continue current cardiac medications and follow up in about 2 weeks after discharge tomorrow. PAUL / VINCENZO: [id number] /
--- NOTE | 2018-11-01 00:08 | LTR ---
To: Dr. Osbaldo Betts Re: Fang Mcbride (41) Dear Michael, I had the pleasure of seeing Fang Mcbride in electrophysiology followup. Fang has been experiencing breakthrough episodes after successful cryoablation of the pulmonary veins last year. She underwent linear ablation of the left atrium today, and despite high-dose Isuprel no further atrial fibrillation could be induced. Hopefully this results in a significant reduction in her atrial fibrillation episodes. She will continue Savaysa and all other cardiac medications as before. Thank you for entrusting me with the care of your patient. Warm regards. Sincerely, Silver Majano MD [id number] / CHATAN: [id number] /
[2018-11-01] MEDS: SODIUM CHLORIDE 0.9% 1,000 ML IV SCH (03:27)
[2018-11-01] MEDS ORDERED: LEVOTHYROXINE 112 MCG TAB PO SCH (06:30)
--- NOTE | 2018-11-01 08:12 | P.DS ---
Providers Attending physician: Silver Majano Primary care physician: [facility] Course: Patient has a little bit of cough and sore throat. No fever chills or rigors no dizziness or lightheadedness intermittent vague upper left pectoral chest pain but no pleuritic chest pain and upon my examination that time she was not having any discomfort. She has been ambulating around in the room and got up and sat in a chair She has no problems with groins healing well with no hematoma No palpitations On examination blood pressure 112/58 mmHg afebrile 98.2F pulse rate in the 70s Breath sounds are equal bilaterally there are no rhonchi no crackles No pericardial rub normal heart sounds normal S1 normal S2 no murmurs Abdomen soft nontender Extremities are warm no edema Impression Breakthrough episodes of symptomatically atrial fibrillation despite cryoablation of the pulmonary veins Originally persistent atrial fibrillation, symptomatic Hypertension Dyslipidemia Status post ablation of the atrium with linear ablation along the roof of the left atrium for left atrial reentry and along the anterior septum along areas of significant fractionation Plan Continue Tambocor Continue Savaysa or any other NOAC Continue diltiazem Continue antihypertensive therapy with losartan continue atorvastatin Incentive spirometry Discharge home today if hemodynamically stable Patient Condition at Discharge: Stable Plan - Discharge Summary Discharge Rx Participant: No New Discharge Prescriptions: Continue Levothyroxine Sodium [Synthroid] 112 mcg PO DAILY Edoxaban Tosylate [Savaysa] 60 mg PO DAILY #30 tab Losartan [Cozaar] 25 mg PO DAILY Isosorbide Mononitrate ER [Imdur] 30 mg PO DAILY Diltiazem HCl [Diltiazem 24Hr ER (CD)] 180 mg PO DAILY Atorvastatin [Lipitor] 10 mg PO DAILY Divalproex ER [Depakote ER] 500 mg PO BID Tart Bruno 2,000 mg PO DAILY Flecainide [Tambocor] 100 mg PO Q12HR #180 tablet Magnesium Oxide [Hampton] 500 mg PO DAILY Loratadine [Claritin] 10 mg PO DAILY Cholecalciferol [Vitamin D3 (25 Mcg = 1000 Iu)] 5,000 unit PO DAILY Discharge Medication List Levothyroxine Sodium [Synthroid] 112 mcg PO DAILY 01/20/15 [History] Edoxaban Tosylate [Savaysa] 60 mg PO DAILY #30 tab 07/16/15 [Rx] Losartan [Cozaar] 25 mg PO DAILY 06/21/17 [History] Atorvastatin [Lipitor] 10 mg PO DAILY 03/25/18 [History] Diltiazem HCl [Diltiazem 24Hr ER (CD)] 180 mg PO DAILY 03/25/18 [History] Isosorbide Mononitrate ER [Imdur] 30 mg PO DAILY 03/25/18 [History] Divalproex ER [Depakote ER] 500 mg PO BID 08/30/18 [History] Tart Bruno 2,000 mg PO DAILY 08/30/18 [History] Flecainide [Tambocor] 100 mg PO Q12HR #180 tablet 09/05/18 [Rx] Cholecalciferol [Vitamin D3 (25 Mcg = 1000 Iu)] 5,000 unit PO DAILY 10/17/18 [History] Loratadine [Claritin] 10 mg PO DAILY 10/17/18 [History] Magnesium Oxide [Hampton] 500 mg PO DAILY 10/17/18 [History] Follow up Appointment(s)/Referral(s): Silver Majano MD [STAFF PHYSICIAN] - 11/10/18 10:15 am (Tuesday) Patient Instructions/Handouts: Cardiac Ablation (DC) Activity/Diet/Wound Care/Special Instructions: Post EP study - Ablation instructions 1. Keep access sites dry for 2 days. 2. No heavy lifting or straining for 2 days. 3. Avoid bending the hips repeatedly for 2 days. 4. You may go up and down stairs slowly Call if the following is noted 1. Bleeding, increasing swelling or pain at the access sites. 2. Increasing chest discomfort, especially upon taking a deep breath. 3. Increasing shortness of breath, at rest or with exertion. 4. Undue cough / phlegm 5. Difficulty or pain while swallowing. 6. Pain or change in color in the extremities. 7. Fever, chills, rigors. 8. Increasing headache or neurologic symptoms. 9. Dizziness, fainting, palpitations Continue all medications including Savaysa
[2018-11-01] MEDS: FLECAINIDE 50 MG TAB PO SCH (08:46)
[2018-11-01] MEDS: DIVALPROEX ER 500 MG TAB.ER.24H PO SCH (08:46)
[2018-11-01 08:50] VITALS: BP 110/65; PULSE 74; RESP 16; TEMP 98.6
[2018-11-01] MEDS ORDERED: EDOXABAN TOSYLATE 60 MG TABLET PO SCH (09:00)
[2018-11-01] MEDS ORDERED: ATORVASTATIN 10 MG TAB PO SCH (09:00)
[2018-11-01] MEDS ORDERED: LORATADINE 10 MG TAB PO SCH (09:00)
[2018-11-01] MEDS ORDERED: LOSARTAN 25 MG TAB PO SCH (09:00)
[2018-11-01] MEDS ORDERED: MAGNESIUM OXIDE 400 MG TAB PO SCH (09:00)
[2018-11-01] MEDS ORDERED: ISOSORBIDE MONONITRATE ER 30 MG TAB.ER.24H PO SCH (09:00)
[2018-11-01] MEDS ORDERED: DILTIAZEM CD 180 MG CAP.ER.24H PO SCH (09:00)
== END 2018-11-01 10:31 | disposition home or self-care (01) ==
LOC: CATHEP 11:51 → 3SCARD 16:41 → CATHEP 11-01 10:31
PROVIDERS: ATTEND Internal Medicine Clinical Cardiac Electrophysiology
DX: I48.1 Persistent atrial fibrillation (principal); I49.5 Sick sinus syndrome; I10 Essential (primary) hypertension; M19.90 Unspecified osteoarthritis, unspecified site; G40.909 Epilepsy, unspecified, not intractable, without status epilepticus; E78.5 Hyperlipidemia, unspecified; G47.30 Sleep apnea, unspecified; E07.9 Disorder of thyroid, unspecified; Z90.49 Acquired absence of other specified parts of digestive tract; Z98.51 Tubal ligation status; Z98.84 Bariatric surgery status; Z82.3 Family history of stroke; Z80.9 Family history of malignant neoplasm, unspecified
CPT/HCPCS: 85347; 93623; 93662; 93613; 93656; C1894; C1769 ×3; C1730; C1731; C1759; C1893; C1732; J2250; J2720; J1644 ×3; J2710; J2405; J2001; J3010; J1170; J2370; J2704

== ENCOUNTER → 2018-12-20 | Outpatient (CLI) | payer MEDICARE, BC | END | disposition home or self-care (01) | LOC: LABWHC1 07:43 | PROVIDERS: ATTEND Psychiatry & Neurology Neurology | DX: G40.209 Localization-related (focal) (partial) symptomatic epilepsy and epileptic syndromes with complex partial seizures, not intractable, without status epilepticus (principal) | CPT/HCPCS: 36415; 80164 ==

== ENCOUNTER 2018-12-25 09:22 | Inpatient (IN) | payer MEDICARE, BC ==
[2019-01-01] MEDS ORDERED: DOFETILIDE 125 MCG CAP PO STA (09:51)
[2019-01-01 10:10] VITALS: BMI 33.3
[2019-01-01 10:29] LABS: INR 1.1 (<1.2); Prothrombin Time 11.7 sec (9.0-12.0)
[2019-01-01] MEDS: CALCIUM CARB-VIT D 500MG-200UN 1 EACH TAB PO SCH ×2 (10:30→19:07)
[2019-01-01] MEDS: MAGNESIUM OXIDE 400 MG TAB PO SCH (10:30)
[2019-01-01] MEDS: LORATADINE 10 MG TAB PO SCH (10:30)
[2019-01-01] MEDS: CHOLECALCIFEROL 1,000 UNIT TAB PO SCH (10:30)
[2019-01-01] MEDS: LOSARTAN 25 MG TAB PO SCH (10:30)
[2019-01-01] MEDS: ATORVASTATIN 10 MG TAB PO SCH (10:30)
[2019-01-01] MEDS: DIVALPROEX ER 500 MG TAB.ER.24H PO SCH ×2 (10:30→19:54)
[2019-01-01 10:53] LABS: Calcium 8.9 mg/dL (8.4-10.2); Magnesium 1.9 mg/dL (1.6-2.3); Potassium 4.6 mmol/L (3.5-5.1)
[2019-01-01] MEDS: SPIRONOLACTONE 25 MG TAB PO SCH (13:15)
--- NOTE | 2019-01-01 16:13 | P.HPCAR ---
History of Present Illness This is Clarissa Walls PA-C dictating an H&P on this patient The patient was interviewed and examined by me as well as by Dr. Majano Case discussed with Dr. Majano and he agrees with the plan of care IMPRESSION / ASSESSMENT: Symptomatic persistent atrial fibrillation, status post PVI and radiofrequency ablation, failed antiarrhythmic therapy with flecainide Hypertension Dyslipidemia PLAN: Start dofetilide 250 g twice daily Start spironolactone 25 mg daily anticoagulation with savaysa Monitor daily BMPs and magnesium Monitor EKG for prolonged QT Monitor telemetry for PVCs and VT HPI Patient is a 73-year-old female with a past medical history significant for persistent atrial fibrillation, hypertension, and dyslipidemia who presented for management of persistent atrial fibrillation. Patient has undergone pulmonary vein isolation with cryoablation as well as radiofrequency ablation of the left atrium along the roof, and along the anterior septum. Following the ablation she was started on flecainide and experienced right through atrial fibrillation. She subsequently underwent a cardioversion but experienced immediate recurrence of atrial fibrillation and cannot be successfully cardioverted and maintained sinus rhythm. She is symptomatic with palpitations, shortness of breath on exertion, and extreme fatigue. EKG today shows a rapid atrial tachycardia, cycle length 240 ms, with RVR. Absolute QT is about 360 ms. Patient seen and examined resting in bed. States she was extremely short of breath when she walked into the hospital and had to be brought in by wheelchair. Continues to feel extremely fatigued. ROS: No fevers, chills or rigors, no cough, phlegm or expectoration, no nausea, vomiting or diarrhea, no hematuria, dysuria, no musculoskeletal complaints, no strokes or seizures, no skin lesions. EXAMINATION: Temperature 97.8F, pulse 113, respirations 18, blood pressure 118/80, oxygen saturation 96% on room air Patient seen and examined lying in bed, in no acute distress lungs Clear to auscultation bilaterally Heart is irregular And tachycardic No elevated JVD No lower extremity edema Abdomen soft and nontender REVIEW OF LABS, ECG & MEDICAL DATA Potassium 4.6, BUN 23, creatinine 0.91, magnesium 1.9, TSH within normal limits at 2.41 Physical Exam Vitals: Vital Signs Temp Pulse Resp BP Pulse Ox 01/01/19 12:00 18 01/01/19 10:00 97.8 F 113 H 18 118/80 96 Intake and Output 01/01/19 01/01/19 01/01/19 06:59 14:59 22:59 Other: Voiding Method Toilet Weight 95.254 kg Past Medical History Past Medical History: Atrial Fibrillation, Hypertension, Osteoarthritis (OA), Seizure Disorder, Sleep Apnea/CPAP/BIPAP, Thyroid Disorder Additional Past Medical History / Comment(s): tachycardia bradycardia syndrome/mild sick sinus syndrome, paroxysmal atrial fibrillation, loop recorder, Last seizure 2 yrs ago., Sleep apnea (does not use her c-pap)., Gastric Bypass., See Cardiology H & P History of Any Multi-Drug Resistant Organisms: None Reported Past Surgical History: Appendectomy, Back Surgery, Bariatric Surgery, Cardiac Ablation, Cholecystectomy, Heart Catheterization, Orthopedic Surgery, Tubal Ligation Additional Past Surgical History / Comment(s): HX OF EPIDURAL INJ FOR PAIN; cardiac loop recorder, states "Stapling Gastric Bypass", left foot fracture Oct, 2018. Past Anesthesia/Blood Transfusion Reactions: No Reported Reaction, Motion Sickness Type of Cardiac Device: Loop Device Placement Date:: Past Psychological History: No Psychological Hx Reported Smoking Status: Never smoker Past Alcohol Use History: Rare Additional Past Alcohol Use History / Comment(s): . Past Drug Use History: None Reported, Marijuana Additional Drug Use History / Comment(s): occasional Marijuana use. - Past Family History Mother Family Medical History: CVA/TIA Additional Family Medical History / Comment(s): Massive Stroke at 54 Father Family Medical History: Cancer Physical Examination Vital Signs Temp Pulse Resp BP Pulse Ox 01/01/19 12:00 18 01/01/19 10:00 97.8 F 113 H 18 118/80 96 Intake and Output 01/01/19 01/01/19 01/01/19 06:59 14:59 22:59 Other: Voiding Method Toilet Weight 95.254 kg Results 01/01/19 10:06 Coagulation 01/01/19 Range/Units 10:06 PT 11.7 (9.0-12.0) sec Comprehensive Metabolic Panel 01/01/19 Range/Units 10:06 Sodium 141 (137-145) mmol/L Potassium 4.6 (3.5-5.1) mmol/L Chloride 110 H (98-107) mmol/L Carbon Dioxide 20 L (22-30) mmol/L BUN 23 H (7-17) mg/dL Creatinine 0.91 (0.52-1.04) mg/dL Glucose 122 H (74-99) mg/dL Calcium 8.9 (8.4-10.2) mg/dL Current Medications Generic Name Dose Route Start Last Admin Trade Name Freq PRN Reason Stop Dose Admin Atorvastatin Calcium 10 mg 01/01/19 10:00 01/01/19 10:30 Lipitor PO Not Given DAILY [facility] Calcium Carbonate 1 each 01/01/19 10:00 01/01/19 10:30 Oscal 500+D PO Not Given BID-W/MEALS [facility] Cholecalciferol 5,000 unit 01/01/19 10:00 01/01/19 10:30 Vitamin D3 (25 Mcg = 1000 Iu) PO Not Given DAILY [facility] Divalproex Sodium 500 mg 01/01/19 10:00 01/01/19 10:30 Depakote Er PO Not Given BID [facility] Dofetilide 250 mcg 01/01/19 18:00 Tikosyn PO 01/01/19 18:01 ONCE ONE Levothyroxine Sodium 112 mcg 01/02/19 06:30 Synthroid PO DAILY@0630 [facility] Loratadine 10 mg 01/01/19 10:00 01/01/19 10:30 Claritin PO Not Given DAILY [facility] Losartan Potassium 25 mg 01/01/19 10:00 01/01/19 10:30 Cozaar PO Not Given DAILY [facility] Magnesium Oxide 400 mg 01/01/19 10:00 01/01/19 10:30 Mag-Ox PO Not Given DAILY [facility] Metoprolol Tartrate 100 mg 01/01/19 21:00 Lopressor PO BID [facility] Spironolactone 25 mg 01/01/19 12:00 01/01/19 13:15 Aldactone PO Not Given DAILY [facility] Intake and Output 01/01/19 01/01/19 01/01/19 06:59 14:59 22:59 Other: Voiding Method Toilet Weight 95.254 kg Patient Weight 01/02/19 06:59 Weight 95.254 kg 01/01/19 10:06
[2019-01-01] MEDS ORDERED: DOFETILIDE 250 MCG CAP PO ONE (18:00)
[2019-01-01] MEDS ORDERED: MAGNESIUM SULFATE-D5W PMX 1 GM in DEXTROSE/WATER 1 100ML.BAG IVPB SCH (18:30)
[2019-01-01] MEDS: METOPROLOL TARTRATE 50 MG TAB PO SCH (19:54)
[2019-01-01] MEDS: APIXABAN 5 MG TAB PO SCH (19:55)
[2019-01-02] MEDS ORDERED: DOFETILIDE 250 MCG CAP PO ONE (06:00)
[2019-01-02] MEDS: LEVOTHYROXINE 112 MCG TAB PO SCH (06:01)
[2019-01-02] MEDS: CALCIUM CARB-VIT D 500MG-200UN 1 EACH TAB PO SCH ×2 (06:01→17:52)
[2019-01-02] MEDS: CHOLECALCIFEROL 1,000 UNIT TAB PO SCH (08:48)
[2019-01-02] MEDS: LORATADINE 10 MG TAB PO SCH (08:49)
[2019-01-02] MEDS: APIXABAN 5 MG TAB PO SCH ×2 (08:49→19:48)
[2019-01-02] MEDS: METOPROLOL TARTRATE 50 MG TAB PO SCH ×2 (08:49→19:48)
[2019-01-02] MEDS: MAGNESIUM OXIDE 400 MG TAB PO SCH (08:49)
[2019-01-02] MEDS: DIVALPROEX ER 500 MG TAB.ER.24H PO SCH ×2 (08:49→19:48)
[2019-01-02] MEDS: SPIRONOLACTONE 25 MG TAB PO SCH (08:49)
[2019-01-02] MEDS: ATORVASTATIN 10 MG TAB PO SCH (08:49)
[2019-01-02] MEDS: LOSARTAN 25 MG TAB PO SCH (08:49)
[2019-01-02 09:13] LABS: Calcium 9.1 mg/dL (8.4-10.2); Magnesium 1.9 mg/dL (1.6-2.3); Potassium 4.4 mmol/L (3.5-5.1)
--- NOTE | 2019-01-02 16:40 | P.PN ---
Subjective This is Clarissa Walls PA-C dictating a progress note on this patient The patient was interviewed and examined by me as well as by Dr. Majano Case discussed with Dr. Majano and he agrees with the plan of care IMPRESSION / ASSESSMENT: Symptomatic persistent atrial fibrillation, status post PVI and radiofrequency ablation, failed antiarrhythmic therapy with flecainide, converted after 2 doses of dofetilide 250 g Hypertension Dyslipidemia PLAN: Decrease dofetilide to 125 g twice a day Continue to monitor daily BMPs and magnesium Continue to monitor telemetry for PVCs and V tach Anticoagulation with eliquis 5 mg twice a day Continue losartan and spironolactone Continue metoprolol 100 mg by mouth twice a day HPI/interval history Patient is a 73-year-old female with a past medical history significant for persistent atrial fibrillation, hypertension, and dyslipidemia who presented for management of persistent atrial fibrillation. Upon admission she was in an atrial tachycardia with RVR, absolute QT was around 360 ms. Last night we started her on dofetilide 250 g twice a day. After the first dose her QT was around 400 ms. She converted to sinus rhythm after 2 doses. EKG this morning after the second dose showed sinus mechanism with absolute QT 440 ms. Patient seen and examined sitting at the side of the bed. She has noticed her breathing has improved since starting the dofetilide. States she is able to walk around without getting shortness of breath. Denies any chest pain or palpitations. No dizziness. EXAMINATION Temperature 98.5F, pulse 69, respirations 16, blood pressure 118/69, oxygen saturation 96% on room air Patient seen and examined sitting at the side bed, in no acute distress Lungs clear to auscultation bilaterally Heart is regular, normal S1-S2, no murmurs She does have mild swelling in the left lower extremity secondary to a healing fracture that happened a few weeks ago REVIEW OF LABS, ECG Sodium 139, potassium 4.4, BUN 21, creatinine 0.99, magnesium 1.9, TSH 2.41 Objective - Vital Signs Vital signs: Vital Signs Temp 98.5 F 01/02/19 12:00 Pulse 69 01/02/19 12:00 Resp 16 01/02/19 12:00 BP 118/69 01/02/19 12:00 Pulse Ox 96 01/02/19 12:00 Intake & Output 1001/02/19 01/02/19 18:59 06:59 18:59 Intake Total 240 240 Balance 240 240 Weight 95.254 kg 94.8 kg Intake: Oral 240 240 Other: Voiding Method Toilet Toilet Toilet # Voids 1 - Labs CBC & Chem 7: 01/02/19 08:05 Labs: Abnormal Lab Results - Last 24 Hours (Table) 01/02/19 Range/Units 08:05 BUN 21 H (7-17) mg/dL
[2019-01-02] MEDS ORDERED: DOFETILIDE 125 MCG CAP PO ONE (18:00)
[2019-01-03] MEDS: LEVOTHYROXINE 112 MCG TAB PO SCH (06:00)
[2019-01-03] MEDS ORDERED: DOFETILIDE 125 MCG CAP PO ONE (06:00)
[2019-01-03] MEDS: CALCIUM CARB-VIT D 500MG-200UN 1 EACH TAB PO SCH ×2 (06:01→17:21)
[2019-01-03 07:53] LABS: Calcium 8.6 mg/dL (8.4-10.2); Magnesium 2.1 mg/dL (1.6-2.3); Potassium 4.2 mmol/L (3.5-5.1)
[2019-01-03] MEDS: CHOLECALCIFEROL 1,000 UNIT TAB PO SCH (08:19)
[2019-01-03] MEDS: MAGNESIUM OXIDE 400 MG TAB PO SCH (08:19)
[2019-01-03] MEDS: LORATADINE 10 MG TAB PO SCH (08:20)
[2019-01-03] MEDS: LOSARTAN 25 MG TAB PO SCH (08:20)
[2019-01-03] MEDS: METOPROLOL TARTRATE 50 MG TAB PO SCH ×2 (08:20→19:54)
[2019-01-03] MEDS: SPIRONOLACTONE 25 MG TAB PO SCH (08:20)
[2019-01-03] MEDS: ATORVASTATIN 10 MG TAB PO SCH (08:20)
[2019-01-03] MEDS: APIXABAN 5 MG TAB PO SCH ×2 (08:20→19:54)
[2019-01-03] MEDS: DIVALPROEX ER 500 MG TAB.ER.24H PO SCH ×2 (08:20→19:54)
[2019-01-03] MEDS ORDERED: HYDROcodone/APAP 5-325MG 1 EACH TAB PO STA (09:30)
--- NOTE | 2019-01-03 12:50 | P.PN ---
Subjective Impression his resting comfortably in bed. No chest discomfort dizziness lightheadedness or palpitations. She feels well. Her breathing is a lot better. Overall sinus rhythm she feels a lot better On examination blood pressure is 126/73 pulse rate in the 60s afebrile 96.9 and then 7.9f Breath sounds are clear no rhonchi no crackles Heart sounds S1 and S2 normal no murmurs or gallops. Abdomen soft nontender Extremities warm no edema Lead ECG today shows further prolongation of the QT interval especially the GT portion of the QT interval despite lowering the dose of dofetilide to 125 g twice daily Labs are reviewed potassium 4.2, urine 20 creatinine 0.83, stable TSH normal Magnesium 2.1 Impression Successful chemical cardioversion of symptomatic atrial fibrillation to sinus rhythm Chemical conversion on dofetilide Prolongation of the QT interval with 250 g of dofetilide Further prolongation of the QT interval noted with the lower dose of 125 g Suggest Reduce the dose of dofetilide to 125 g by mouth daily [facility] dose A.m. dosing of dofetilide only Reduced dose of metoprolol tartrate 50 mrem twice daily Reevaluate QT interval tomorrow morning and compare it with tonight's QT i nterval Objective - Vital Signs Vital signs: Vital Signs Temp 97.9 F 01/03/19 11:33 Pulse 52 L 01/03/19 11:33 Resp 20 01/03/19 11:33 BP 106/55 01/03/19 11:33 Pulse Ox 97 01/03/19 11:33 Intake & Output 01/02/19 01/03/19 01/03/19 18:59 06:59 18:59 Intake Total 1320 240 Balance 1320 240 Weight 95.3 kg Intake: Oral 1320 240 Other: Voiding Method Toilet Toilet # Voids 3 2 - Labs CBC & Chem 7: 01/03/19 06:58 Labs: Abnormal Lab Results - Last 24 Hours (Table) 01/03/19 Range/Units 06:58 Chloride 109 H (98-107) mmol/L BUN 20 H (7-17) mg/dL
[2019-01-03] MEDS ORDERED: DOFETILIDE 125 MCG CAP PO SCH (18:00)
[2019-01-04] MEDS ORDERED: DOFETILIDE 125 MCG CAP PO SCH (06:00)
[2019-01-04] MEDS: LEVOTHYROXINE 112 MCG TAB PO SCH (06:22)
[2019-01-04] MEDS: CALCIUM CARB-VIT D 500MG-200UN 1 EACH TAB PO SCH ×2 (06:22→17:34)
[2019-01-04 07:30] LABS: Calcium 8.8 mg/dL (8.4-10.2); Potassium 4.7 mmol/L (3.5-5.1)
[2019-01-04] MEDS: CHOLECALCIFEROL 1,000 UNIT TAB PO SCH (08:54)
[2019-01-04] MEDS: APIXABAN 5 MG TAB PO SCH ×2 (08:54→20:27)
[2019-01-04] MEDS: ATORVASTATIN 10 MG TAB PO SCH (08:54)
[2019-01-04] MEDS: SPIRONOLACTONE 25 MG TAB PO SCH (08:55)
[2019-01-04] MEDS: METOPROLOL TARTRATE 50 MG TAB PO SCH ×2 (08:55→20:28)
[2019-01-04] MEDS: DIVALPROEX ER 500 MG TAB.ER.24H PO SCH ×2 (08:55→20:28)
[2019-01-04] MEDS: LORATADINE 10 MG TAB PO SCH (08:55)
[2019-01-04] MEDS: MAGNESIUM OXIDE 400 MG TAB PO SCH (08:55)
[2019-01-04] MEDS: LOSARTAN 25 MG TAB PO SCH (08:55)
--- NOTE | 2019-01-04 11:02 | P.PN ---
Subjective IMPRESSION / ASSESSMENT: Symptomatic persistent atrial fibrillation, status post PVI and radiofrequency ablation, failed antiarrhythmic therapy with flecainide, converted after 2 doses of dofetilide 250 g, currently in sinus rhythm Prolonged QT on dofetilide 125 g Hypertension Dyslipidemia PLAN: Stop dofetilide, discussed with patient that because of her prolonged QT this drug will not be a safe option for her Discussed treatment options for atrial fibrillation including A. fib radiofrequency ablation versus permanent pacing with AV node ablation Given her history, she would likely require multiple extensive A. fib radiofrequency ablations and the success rate would be lower with each one so this is not her best option at this point We would suggest proceeding with biventricular permanent pacemaker implantation and subsequent AV node ablation, patient is agreeable to this plan Continue anticoagulation with eliquis while in the hospital and she will go back to savaysa upon discharge Continue spironolactone for the next few days along with oral magnesium supplements Continue metoprolol and losartan Anticipating discharge tomorrow HPI/interval history Patient is a 73-year-old female with a past medical history significant for p ersistent atrial fibrillation, hypertension, and dyslipidemia who presented for management of persistent atrial fibrillation. Upon admission she was in an atrial tachycardia with RVR, absolute QT was around 360 ms. We started her on dofetilide 250 g twice a day. She converted to sinus rhythm after 2 doses. Subsequent EKG showed prolonged QT so we lowered her dose of dofetilide to 125 g. Again she had a prolonged QT on this dose so we stopped it last night and her QT shortened to 440 ms off the dofetilide. We reduced her dose of metoprolol to avoid bradycardia and she received a dose of dofetilide 125 g this morning . subsequent EKG showed lengthening of the QT to 480 ms. Patient s een and examined resting in bed. States her breathing has improved. Complains of back pain. No dizziness, palpitations or chest pain. EXAMINATION Temperature 90.8F, pulse 58, respirations 16, blood pressure 111/58, oxygen saturation 97% on room air Patient seen and examined sitting at the side bed, in no acute distress Lungs clear to auscultation bilaterally Heart is regular, normal S1-S2, no murmurs trace swelling in the left lower extremity REVIEW OF LABS, ECG Potassium 4.7, BUN 19, creatinine 0.83, magnesium 2.0 Objective - Vital Signs Vital signs: Vital Signs Temp 98.0 F 01/04/19 08:00 Pulse 58 L 01/04/19 08:00 Resp 16 01/04/19 08:00 BP 111/58 01/04/19 08:00 Pulse Ox 97 01/04/19 08:00 Intake & Output 01/03/19 01/04/19 01/04/19 18:59 06:59 18:59 Intake Total 720 120 Output Total 1100 Balance 720 -1100 120 Weight 95.4 kg Intake: Oral 720 120 Output: Urine 1100 Other: Voiding Method Toilet # Voids 3 0 # Bowel Movements 1 0 - Labs CBC & Chem 7: 01/04/19 06:34 Labs: Abnormal Lab Results - Last 24 Hours (Table) 01/04/19 Range/Units 06:34 BUN 19 H (7-17) mg/dL
[2019-01-05] MEDS: LEVOTHYROXINE 112 MCG TAB PO SCH (06:29)
[2019-01-05] MEDS: CALCIUM CARB-VIT D 500MG-200UN 1 EACH TAB PO SCH (06:29)
[2019-01-05 07:45] LABS: Calcium 8.8 mg/dL (8.4-10.2); Magnesium 1.9 mg/dL (1.6-2.3); Potassium 4.7 mmol/L (3.5-5.1)
[2019-01-05] MEDS: SPIRONOLACTONE 25 MG TAB PO SCH (08:08)
[2019-01-05] MEDS: LORATADINE 10 MG TAB PO SCH (08:08)
[2019-01-05] MEDS: CHOLECALCIFEROL 1,000 UNIT TAB PO SCH (08:08)
[2019-01-05] MEDS: ATORVASTATIN 10 MG TAB PO SCH (08:08)
[2019-01-05] MEDS: APIXABAN 5 MG TAB PO SCH (08:08)
[2019-01-05] MEDS: DIVALPROEX ER 500 MG TAB.ER.24H PO SCH (08:08)
[2019-01-05] MEDS: METOPROLOL TARTRATE 50 MG TAB PO SCH (08:08)
[2019-01-05] MEDS: MAGNESIUM OXIDE 400 MG TAB PO SCH (08:09)
[2019-01-05] MEDS: LOSARTAN 25 MG TAB PO SCH (08:09)
[2019-01-05 08:12] VITALS: RESP 16; TEMP 97.3
[2019-01-05 12:21] VITALS: BP 127/77; PULSE 54
--- NOTE | 2019-01-05 12:52 | P.DS ---
Providers Date of admission: 01/01/19 09:39 Attending physician: Silver Majano Primary care physician: [facility] Course: Patient is doing well. No chest discomfort dizziness lightheadedness or palpitations. She is in sinus rhythm at this time Blood pressure 127/77 mmHg pulse rate in the 50s and 60s afebrile 97.3F Breath sounds are clear no rhonchi no crackles Heart sounds S1 and S2 are normal no murmurs or gallops or rub Extremities warm no edema abdomen is soft Impression Symptomatic persistent atrial fibrillation with RVR with difficult rate control Status post A. fib ablation in the past with recurrence of A. fib Admitted for initiation of dofetilide Chemical conversion to sinus rhythm with a fairly first dose of dofetilide Subsequently prolongation of the QT interval on 250 g twice daily QT interval remained prolonged 125 g Twice Daily QT Interval Was Still Prolonged on 125 g Once Daily Dofetilide Was Discontinued Home Medications Resumed Detailed discussion with patient regarding future management of atrial fibrillation which is quite symptomatic I discussed her repeat EP study and efficacy ablation for A. fib did it is quite likely that she may need multiple A. fib ablations, at least 2 more The option of a biventricular pacemaker followed by AV junction modification was also discussed Patient would like to proceed with AV node ablation for management of A. fib Since she will be having a stent placed in the right ventricle, a biventricular device will be implanted I will schedule this She will go home today No changes in her home medications Adequate ablation to continue Patient Condition at Discharge: Stable Plan - Discharge Summary Discharge Rx Participant: No New Discharge Prescriptions: No Action RX: Levothyroxine Sodium [Synthroid] 112 mcg PO DAILY RX: Edoxaban Tosylate [Savaysa] 60 mg PO DAILY #30 tab RX: Losartan [Cozaar] 25 mg PO DAILY RX: Atorvastatin [Lipitor] 10 mg PO DAILY RX: Divalproex ER [Depakote ER] 500 mg PO BID Tart Bruno 1,000 mg PO DAILY RX: Magnesium Oxide [Hampton] 500 mg PO DAILY RX: Loratadine [Claritin] 10 mg PO DAILY RX: Cholecalciferol [Vitamin D3 (25 Mcg = 1000 Iu)] 5,000 unit PO DAILY Metoprolol Tartrate [Lopressor] 50 mg PO BID Diltiazem HCl [Cartia Xt] 180 mg PO DAILY Discharge Medication List RX: Levothyroxine Sodium [Synthroid] 112 mcg PO DAILY 01/20/15 [History] RX: Edoxaban Tosylate [Savaysa] 60 mg PO DAILY #30 tab 07/16/15 [Rx] RX: Losartan [Cozaar] 25 mg PO DAILY 06/21/17 [History] RX: Atorvastatin [Lipitor] 10 mg PO DAILY 03/25/18 [History] RX: Divalproex ER [Depakote ER] 500 mg PO BID 08/30/18 [History] Tart Bruno 1,000 mg PO DAILY 08/30/18 [History] RX: Cholecalciferol [Vitamin D3 (25 Mcg = 1000 Iu)] 5,000 unit PO DAILY 10/17/18 [History] RX: Loratadine [Claritin] 10 mg PO DAILY 10/17/18 [History] RX: Magnesium Oxide [Hampton] 500 mg PO DAILY 10/17/18 [History] Diltiazem HCl [Cartia Xt] 180 mg PO DAILY 01/01/19 [History] Metoprolol Tartrate [Lopressor] 50 mg PO BID 01/01/19 [History]
== END 2019-01-05 15:16 | disposition home or self-care (01) | DRG 310 ==
LOC: 2ORMAIN 01-01 09:36 → UNDOADMIN 01-01 09:36 → 1SOBS 01-01 09:39 → 3SCARD 01-01 13:35
PROVIDERS: ADMIT Internal Medicine Clinical Cardiac Electrophysiology; ATTEND Internal Medicine Clinical Cardiac Electrophysiology
DX: I48.19 Other persistent atrial fibrillation (principal); E78.5 Hyperlipidemia, unspecified; G40.909 Epilepsy, unspecified, not intractable, without status epilepticus; G47.30 Sleep apnea, unspecified; I10 Essential (primary) hypertension; I47.1 Supraventricular tachycardia; I49.3 Ventricular premature depolarization; Z82.49 Family history of ischemic heart disease and other diseases of the circulatory system; Z79.890 Hormone replacement therapy; Z79.899 Other long term (current) drug therapy; E07.9 Disorder of thyroid, unspecified
CPT/HCPCS: 80048; 83735; 84443; 85610

== ENCOUNTER → 2019-01-10 | Outpatient (CLI) | payer MEDICARE, BC ==
--- NOTE | 2019-01-10 16:02 | US ---
EXAMINATION TYPE: US venous doppler duplex LE LT DATE OF EXAM: 01/10/2019 3:54 PM COMPARISON: NONE CLINICAL HISTORY: M79.672 PAIN LT FOOT,I80.9 PHLEBITIS. Broken bone in left foot 2 months ago, left l eg swelling since break, patient on blood thinners. SIDE PERFORMED: Left TECHNIQUE: The lower extremity deep venous system is examined utilizing real time linear array sonog ward with graded compression, doppler sonography and color-flow sonography. VESSELS IMAGED: External Iliac Vein (EIV) Common Femoral Vein Deep Femoral Vein Greater Saphenous Vein * Femoral Vein Popliteal Vein Small Saphenous Vein * Proximal Calf Veins (* superficial vessels) Grayscale, color doppler, spectral doppler imaging performed of the deep veins of the left lower extr emity. There is normal flow, compressibility, vascular waveforms. Left Leg: Appears negative for DVT IMPRESSION: No sonographic evidence of deep venous thrombosis within the left lower extremity.
== END | disposition home or self-care (01) ==
LOC: RADUSWWP 15:31
PROVIDERS: ATTEND Orthopaedic Surgery
DX: M79.672 Pain in left foot (principal)

== ENCOUNTER 2019-01-15 10:44 | Day surgery (SDC) | payer MEDICARE, BC ==
[2019-01-12 11:05] VITALS: BMI 33.9
[~2019-01-15 10:44] MED LIST changes: +CLINDAMYCIN 600 MG in SODIUM CHLORIDE 0.9% IRRIGATIO 250 ML IRRIGATION ONE; +HYDROmorphone 0.5 MG/0.5 ML SYRINGE IVP PRN; +MIDAZOLAM 2 MG/2 ML VIAL IV PRN
[2019-01-15 11:48] LABS: Basophils % (A) 0 %; Eosinophils # (A) 0.1 k/uL (0-0.7); Eosinophils % (A) 1 %; HCT 39.9 % (34.0-46.0); HGB 13.5 gm/dL (11.4-16.0); Lymphocytes # (A) 3.2 k/uL (1.0-4.8); Lymphocytes % (A) 30 %; MCH 29.6 pg (25.0-35.0); MCHC 33.8 g/dL (31.0-37.0); MCV 87.6 fL (80.0-100.0); Mean Platelet Volume 6.4; Monocytes # (A) 0.7 k/uL (0-1.0); Monocytes % (A) 6 %; Neutrophils # (A) 6.3 k/uL (1.3-7.7); Neutrophils % (A) 60 %; Platelet Count 332 k/uL (150-450); RBC 4.55 m/uL (3.80-5.40); RDW 12.6 % (11.5-15.5); WBC 10.5 k/uL (3.8-10.6)
[2019-01-15] MEDS ORDERED: PROPOFOL 10 MG/ML 20 ML VIAL IV ONE (12:59)
[2019-01-15] MEDS ORDERED: fentaNYL (PF) 50 MCG/ML 2 ML AMP ONE (12:59)
[2019-01-15] MEDS ORDERED: MIDAZOLAM 2 MG/2 ML VIAL ONE (12:59)
[2019-01-15] MEDS ORDERED: IOPAMIDOL-250 50ML BTL IV ONE (13:14)
[2019-01-15] MEDS ORDERED: IV FLUID CONTINUATION 900 ML IV ONE (13:18)
[2019-01-15] MEDS ORDERED: LIDOCAINE 1% INJ 10MG/ML (20 ML MDV) ONE ×2 (13:25)
[2019-01-15] MEDS ORDERED: LIDOCAINE 1% INJ 10MG/ML (20 ML MDV) SQ ONE (13:47)
[2019-01-15] MEDS: SODIUM CHLORIDE 0.9% 1,000 ML IV SCH ×2 (15:39→19:35)
[2019-01-15] MEDS: LACTATED RINGERS 1,000 ML IV SCH (15:39)
[2019-01-15] MEDS ORDERED: LACTATED RINGERS 1,000 ML IV ONE (15:40)
[2019-01-15] MEDS ORDERED: ACETAMINOPHEN TAB 325 MG TAB PO PRN (15:46)
[2019-01-15] MEDS ORDERED: ACETAMINOPHEN IV (For NPO) 1,000 MG in EMPTY BAG 1 BAG IVPB ONE (16:00)
[2019-01-15] MEDS: HYDROcodone/APAP 5-325MG 1 EACH TAB PO PRN ×2 (16:39→19:58)
[2019-01-15 18:45] VITALS: RESP 18
[2019-01-15] MEDS: METOPROLOL TARTRATE 50 MG TAB PO SCH (19:59)
[2019-01-15] MEDS: DIVALPROEX ER 500 MG TAB.ER.24H PO SCH (19:59)
[2019-01-16] MEDS: SODIUM CHLORIDE 0.9% 1,000 ML IV SCH ×2 (03:09→03:11)
[2019-01-16] MEDS: LACTATED RINGERS 1,000 ML IV SCH (05:20)
[2019-01-16] MEDS: HYDROcodone/APAP 5-325MG 1 EACH TAB PO PRN ×2 (05:25→12:53)
[2019-01-16] MEDS ORDERED: LEVOTHYROXINE 112 MCG TAB PO SCH (06:30)
--- NOTE | 2019-01-16 06:39 | CE ---
CARDIAC ELECTROPHYSIOLOGY REPORT Fang Mcbride is a 73-year-old female with tachybrady syndrome, atrial fibrillation with RVR despite high-dose beta blockers and calcium channel blockers, failed antiarrhythmic drug treatments including atrial fibrillation ablation as well as intolerant of dofetilide even though lowest dose with QT prolongation. Dofetilide was stopped. She did convert to the first dose of dofetilide and she is in sinus rhythm, but dofetilide could not be continued on account of QT prolongation even with the lowest dose of dofetilide 125 mcg once daily only. Patient was brought to the EP lab in a fasting state. Written informed consent was obtained prior to the procedure. The left shoulder area was prepped and draped as per protocol and 1% lidocaine was used for local anesthesia. A 4 cm incision was made parallel to the deltopectoral groove, about 1.5 cm medial to it. The incision was carried down to the level of the pectoralis muscle. A subfascial pocket was made. Hemostasis was assured. The left axillary vein was accessed at 3 separate points under fluoroscopy and via appropriately-sized introducer sheaths 3 leads were positioned the right heart. The RV lead was positioned in the RV apex. This was a Medtronic tined passive lead model #4074, 58 cm in length and serial number [id number]. R-waves 13.6 mV, pacing impedance 1462 ohms, pacing threshold 0.3 V at 0.5 milliseconds. Ten volt test was negative. The LV port was connected and the lead positioned and placed in the LV port for Bi V pacing was a Medtronic model #3830, 69 cm in length and serial number [id number]. Nonselective capture was noted with loss of capture at 0.7 V at 1 millisecond. Pacing impedance 569 ohms. The QRS width was less than 125 milliseconds nonselective capture. The atrial lead used was a 53 cm Medtronic model #4574 and serial number [id number]. The P waves were 2.5 mV, pacing threshold 0.4 V at 0.5 milliseconds, pacing impedance 545 ohms. Ten volt test was negative. Both leads were secured to the underlying pectoralis fascia using 2 nonabsorbable sutures. Pocket was irrigated with antibiotic solution. Leads were connected to the generator (Medtronic biventricular pacemaker Sia SOFTWARE QUALITY TEST ENGINEER P, model number W1TR02, serial number [id number]). Leads and the generator were then placed in subfascial pocket. The wound was closed in 3 layers and dressed per protocol. Hemostasis was achieved with the Aquamantys system. The device was then programmed to DDD 60 to 130 ppm with LV pacing RV pacing to promote physiologic septal pacing. PLAN: After 6 weeks if the lead thresholds are excellent, we will proceed with AV junction modification for management of atrial fibrillation with RVR. MMODL / IJN: [id number] /
--- NOTE | 2019-01-16 06:45 | LTR ---
January 15, 2019 Re: Fang Mcbride Dear Michael: I had the pleasure of seeing Fang Mcbride in electrophysiology followup. As you know, Fang has undergone atrial fibrillation ablation, but has had recurrence of atrial fibrillation. Following that, I admitted her for dofetilide initiation in the hospital. While the very first dose of dofetilide chemically converted to sinus rhythm, the QT interval was prolonged. Despite reducing the dose down to the lowest possible dose of 125 mcg once daily, her QT interval still remained prolonged and dofetilide was discontinued. Options were discussed including repeat atrial fibrillation ablation versus AV node modification and a pacemaker. Today, I implanted biventricular pacemaker with His bundle pacing. After about one to two months, once we ensure that the lead function is currently stable, we will proceed with AV node ablation. She will continue anticoagulation. Thank you for entrusting me in the care of your patient. Warm regards. Sincerely, MD PAUL [place] / [place]: [id number] /
--- NOTE | 2019-01-16 07:19 | P.DS ---
Providers Attending physician: Silver Majano Primary care physician: [facility] Course: Impression A. fib with RVR, symptomatic Failed rate control medications Failed ablation for atrial fibrillation QT prolongation with the lowest dose of dofetilide Dofetilide did convert the patient to sinus rhythm chemically Status post biventricular pacemaker implantation with physiologic septal pacing Patient is resting comfortably in bed. No dizziness lightheadedness no palpitations no chest pain She is sore at the pacemaker site There is no hematoma there is minimal bruising Blood pressure 121 of 78 mmHg pulse rate in the 60s 97.7F temperature Normal respirations Breath sounds are clear no rhonchi no crackles Heart sounds are regular no murmurs Abdomen soft nontender Extremity is warm no edema Impression Persistent symptomatic atrial fibrillation with RVR Biventricular pacemaker implantation yesterday Nonselective His bundle pacing noted today Plan IV antibiotics, chest x-ray, pacemaker interrogation After 6 weeks AV node ablation be performed/or when she goes back into atrial fibrillation once again with RVR No change in medications discharge home today Plan - Discharge Summary Discharge Rx Participant: No New Discharge Prescriptions: Continue Levothyroxine Sodium [Synthroid] 112 mcg PO DAILY Edoxaban Tosylate [Savaysa] 60 mg PO DAILY #30 tab Losartan [Cozaar] 25 mg PO DAILY Atorvastatin [Lipitor] 10 mg PO DAILY Divalproex ER [Depakote ER] 500 mg PO BID Tart Bruno 2,000 mg PO DAILY Magnesium Oxide [Hampton] 500 mg PO DAILY Loratadine [Claritin] 10 mg PO DAILY Cholecalciferol [Vitamin D3 (25 Mcg = 1000 Iu)] 5,000 unit PO DAILY Metoprolol Tartrate [Lopressor] 50 mg PO BID Diltiazem HCl [Cartia Xt] 180 mg PO DAILY Discharge Medication List Levothyroxine Sodium [Synthroid] 112 mcg PO DAILY 01/20/15 [History] Edoxaban Tosylate [Savaysa] 60 mg PO DAILY #30 tab 07/16/15 [Rx] Losartan [Cozaar] 25 mg PO DAILY 06/21/17 [History] Atorvastatin [Lipitor] 10 mg PO DAILY 03/25/18 [History] Divalproex ER [Depakote ER] 500 mg PO BID 08/30/18 [History] Tart Bruno 2,000 mg PO DAILY 08/30/18 [History] Cholecalciferol [Vitamin D3 (25 Mcg = 1000 Iu)] 5,000 unit PO DAILY 10/17/18 [History] Loratadine [Claritin] 10 mg PO DAILY 10/17/18 [History] Magnesium Oxide [Hampton] 500 mg PO DAILY 10/17/18 [History] Diltiazem HCl [Cartia Xt] 180 mg PO DAILY 01/01/19 [History] Metoprolol Tartrate [Lopressor] 50 mg PO BID 01/01/19 [History] Follow up Appointment(s)/Referral(s): Silver Majano MD [STAFF PHYSICIAN] - 1 Week (Device clinic follow-up within one week Follow-up with Dr. Majano/Clarissa Walls/Celeste Vazquez in 3-4 months) Activity/Diet/Wound Care/Special Instructions: PATIENT EDUCATION MATERIAL Instructions following a heart rhythm device implant. 1. Keep dressing DRY for 5 DAYS. You may cover the area with Saran or Cling Wrap, prior to a shower. 2. The dressing will be removed in the Device Clinic at [facility]. Absorbable sutures were used to close the wound. 3. Avoid raising the left arm above the shoulder level. 4 week restriction 4. Avoid arm movements, like backscratching, rubbing the head, or pulling on a cord. 4 weeks restriction 5. Gentle range of motion movements of the shoulder, closest to the incision should be performed to avoid a frozen shoulder. (Pendulum exercises of the shoulder) 6. The opposite arm may be used freely. 7. Avoid driving for 7 days. 8. Avoid activities such as golfing, swimming, weed whacking, lifting more than 10 pounds weight, bowling, gymnastics and weight training/lifting. (6 weeks restriction) 9. Activities such as wood chopping with an axe, pull-ups in the gymnasium, power lifting, arc-welding, being close to home induction cooktops will always be a problem. 10. Arm sling is only a reminder not to raise the arm above the head. You do not need to keep the arm completely immobilized. Your free to move the arm and use it and for normal activities. In case of any problems, please call [facility] [place], @ [phone], Attention: Device Clinic Device clinic follow-up in 5 days Follow-up with primary livestock breeder in 2-3 months
--- NOTE | 2019-01-16 07:58 | XR ---
EXAMINATION TYPE: XR chest 2V DATE OF EXAM: 01/16/2019 COMPARISON: 03/25/2018 HISTORY: Lead placement check TECHNIQUE: Frontal and lateral views of the chest are obtained. FINDINGS: There is a multilead left-sided cardiac device present. Atrial/kina lead and 2 ventricula r leads are seen. No postprocedural pneumothorax. Postsurgical changes are seen at the gastroesophage al junction. Cardiac loop recorder remains. Persistent right midlung platelike atelectasis. Remainder the lungs are well aerated. Cardiomediastinal silhouette is within normal limits. Tortuosity of the descending thoracic aorta is again noted. Surgical clips of the upper abdomen. IMPRESSION: Pneumocephaly left-sided cardiac device as described above. Otherwise unchanged exam fro m the prior of 03/25/2018.
[2019-01-16] MEDS ORDERED: EDOXABAN TOSYLATE 60 MG TABLET PO SCH (09:00)
[2019-01-16] MEDS ORDERED: ATORVASTATIN 10 MG TAB PO SCH (09:00)
[2019-01-16] MEDS ORDERED: LOSARTAN 25 MG TAB PO SCH (09:00)
[2019-01-16] MEDS ORDERED: DILTIAZEM CD 180 MG CAP.ER.24H PO SCH (09:00)
[2019-01-16] MEDS: METOPROLOL TARTRATE 50 MG TAB PO SCH (09:06)
[2019-01-16] MEDS: DIVALPROEX ER 500 MG TAB.ER.24H PO SCH (09:06)
[2019-01-16 11:32] VITALS: BP 123/74; PULSE 59; TEMP 97.4
== END 2019-01-16 14:00 | disposition home or self-care (01) ==
LOC: CATHEP 10:44 → 1SOBS 15:31 → CATHEP 01-16 14:00
PROVIDERS: ATTEND Internal Medicine Clinical Cardiac Electrophysiology
DX: I48.19 Other persistent atrial fibrillation (principal); I49.5 Sick sinus syndrome; I10 Essential (primary) hypertension; E07.9 Disorder of thyroid, unspecified; Z79.01 Long term (current) use of anticoagulants; Z79.890 Hormone replacement therapy; Z79.899 Other long term (current) drug therapy; Z88.0 Allergy status to penicillin
CPT/HCPCS: 33225; 33208; 85025; 71046; C1769 ×2; C1892; C1898 ×2; C2621; J2250; J0690 ×2; J2001; J3010; J0131; J2704; Q9966

== ENCOUNTER → 2019-02-17 | Outpatient (CLI) | payer MEDICARE, BC ==
[2019-02-17 09:10] LABS: HCT 39.2 % (34.0-46.0); HGB 13.4 gm/dL (11.4-16.0); MCH 30.2 pg (25.0-35.0); MCHC 34.2 g/dL (31.0-37.0); MCV 88.3 fL (80.0-100.0); Mean Platelet Volume 7.9; Platelet Count 324 k/uL (150-450); RBC 4.44 m/uL (3.80-5.40); RDW 12.8 % (11.5-15.5); WBC 10.2 k/uL (3.8-10.6)
[2019-02-17 09:31] LABS: Potassium 4.7 mmol/L (3.5-5.1)
== END | disposition home or self-care (01) ==
LOC: LABPAT 08:04
PROVIDERS: ATTEND Internal Medicine Clinical Cardiac Electrophysiology
DX: Z01.812 Encounter for preprocedural laboratory examination (principal); I47.1 Supraventricular tachycardia; I48.19 Other persistent atrial fibrillation
CPT/HCPCS: 36415; 80051; 82565; 82947; 84520; 85027

== ENCOUNTER 2019-02-26 10:52 | Day surgery (SDC) | payer MEDICARE, BC ==
[2019-02-22 12:07] VITALS: BMI 34.2
[2019-02-26] MEDS ORDERED: CLINDAMYCIN 900 MG in DEXTROSE 5% IN WATER 50 ML IVPB ONE ×2 (11:45)
[2019-02-26] MEDS: SODIUM CHLORIDE 0.9% 1,000 ML IV SCH ×2 (11:45→19:59)
[2019-02-26] MEDS ORDERED: ATROPINE SULFATE 0.1 MG/ML 10ML SYRINGE ONE (13:58)
[2019-02-26] MEDS ORDERED: fentaNYL (PF) 50 MCG/ML 2 ML AMP ONE (13:58)
[2019-02-26] MEDS ORDERED: HYDROmorphone (PF) 1 MG/ML ONE (13:58)
[2019-02-26] MEDS ORDERED: FAMOTIDINE 20 MG/2 ML VIAL ONE ×2 (13:58→15:20)
[2019-02-26] MEDS ORDERED: MIDAZOLAM 2 MG/2 ML VIAL ONE (13:58)
[2019-02-26] MEDS ORDERED: HEPARIN SODIUM (1,000 UNIT/ML) 1,000 UNIT in SODIUM CHLORIDE 0.9% 1,000 ML IRRIGATION ONE (13:59)
[2019-02-26] MEDS ORDERED: LIDOCAINE 1% INJ 10MG/ML (20 ML MDV) ONE ×2 (14:15→15:12)
[2019-02-26] MEDS ORDERED: LIDOCAINE 1% INJ 10MG/ML (20 ML MDV) SQ ONE ×2 (14:30→15:20)
--- NOTE | 2019-02-26 15:05 | P.PCN ---
Preoperative Diagnosis: Procedure: Device interrogation with reprogramming prior to the procedure AV Node Ablation/modification. Device interrogation with reprogramming postprocedure, His-FLAT IRONER Patient was brought to the EP lab in a fasting state. Written, informed consent was obtained prior to the procedure. Access was obtained, sheath placed in right femoral vein. 1. Preprocedure device interrogation and reprogramming Device interrogation with reprogramming performed. Rate responsiveness was turned off and the pacing rate was reprogrammed to a backup mode prior to ablation. Tachycardia detections turned off. Lead impedance is documented, sensing and pacing thresholds performed prior to the procedure Backup pacing, VVI 40 bpm 3. AV node ablation A Mapping/Ablation catheter was placed and right-sided AV node radiofrequency ablation/modification was performed. Complete heart block was achieved with occasional junctional escape rhythm above 40 bpm 4. Device programming postprocedure Post ablation, device reprogramming was performed. Base Pacing rate was p rogrammed to 90 bpm. Patient's device was reprogrammed and the interrogated. RF mode turned on Vascular sheaths were removed at the end of the procedure, hemostasis was assured, the patient was then transferred to recovery room/telemetry in stable condition. Conclusions: Successful ablation of the AV node. Plan: Pacing at 90 bpm for at least 3 weeks., His-FLAT IRONER Telemetry monitoring for 24-48 hours. Continue anticoagulation. Patient tolerated the procedure well without any acute complications
--- NOTE | 2019-02-26 15:11 | P.PRLE ---
RE: Fang Mcbride Dear Michael Headley underwent AV node ablation following His-TWX OPERATOR I would reduce of AV kina blocking drugs now but the blood pressure values need to be watched on reduced doses of AV node blocking drugs line she is paced at 90 beats a minute for the next 3 weeks and then subsequently we will reduce the rate down to 60 bpm She will continue Savaysa lifelong Thank you for entrusting me with the care of the patient Warm regards Sincerely Silver Majano
--- NOTE | 2019-02-26 15:38 | P.PCN ---
Preoperative Diagnosis: Loop explant under sedation and local anesthesia. Patient was brought to the EP lab in a fasting state. Written informed consent was obtained prior to the procedure. The subcutaneous device was successfully explanted under local anesthesia. Preoperative antibiotics were administered. The wound was closed in layers and dressed per protocol. Result: Successful loop monitor explantation. IV sedation provided by anesthesia team
[2019-02-26 15:48] LABS: Basophils % (A) 0 %; Eosinophils # (A) 0.1 k/uL (0-0.7); Eosinophils % (A) 1 %; HGB 10.9 gm/dL (11.4-16.0); Lymphocytes # (A) 2.4 k/uL (1.0-4.8); Lymphocytes % (A) 30 %; MCH 30.4 pg (25.0-35.0); MCHC 34.2 g/dL (31.0-37.0); Mean Platelet Volume 8.1; Monocytes # (A) 0.5 k/uL (0-1.0); Monocytes % (A) 6 %; Neutrophils # (A) 4.9 k/uL (1.3-7.7); Neutrophils % (A) 61 %; Platelet Count 260 k/uL (150-450); RBC 3.59 m/uL (3.80-5.40); RDW 12.5 % (11.5-15.5)
[2019-02-26] MEDS ORDERED: HYDROmorphone 1 MG/ML 1 ML SYRINGE IVP PRN (18:51)
[2019-02-26] MEDS ORDERED: ONDANSETRON 4 MG/2 ML VIAL IVP PRN (18:52)
[2019-02-26] MEDS: LACTATED RINGERS 1,000 ML IV SCH ×2 (18:54→19:59)
[2019-02-26] MEDS: DIVALPROEX ER 500 MG TAB.ER.24H PO SCH (19:55)
[2019-02-26] MEDS: METOPROLOL TARTRATE 50 MG TAB PO SCH (19:55)
[2019-02-26 23:21] VITALS: RESP 18
[2019-02-27] MEDS ORDERED: LEVOTHYROXINE 112 MCG TAB PO SCH (06:30)
[2019-02-27] MEDS: METOPROLOL TARTRATE 50 MG TAB PO SCH (07:54)
[2019-02-27] MEDS: DIVALPROEX ER 500 MG TAB.ER.24H PO SCH (07:55)
[2019-02-27] MEDS ORDERED: DILTIAZEM CD 180 MG CAP.ER.24H PO SCH (09:00)
[2019-02-27] MEDS ORDERED: LORATADINE 10 MG TAB PO SCH (09:00)
[2019-02-27] MEDS ORDERED: CHOLECALCIFEROL 1,000 UNIT TAB PO SCH (09:00)
[2019-02-27] MEDS ORDERED: ATORVASTATIN 10 MG TAB PO SCH (09:00)
[2019-02-27] MEDS ORDERED: LOSARTAN 25 MG TAB PO SCH (09:00)
[2019-02-27] MEDS ORDERED: EDOXABAN TOSYLATE 60 MG TABLET PO SCH (09:00)
[2019-02-27] MEDS ORDERED: MAGNESIUM OXIDE 400 MG TAB PO SCH (09:00)
[2019-02-27 11:31] VITALS: BP 117/76; PULSE 90; TEMP 98.2
--- NOTE | 2019-02-27 13:44 | P.DS ---
Providers Attending physician: Silver Majano Primary care physician: Stated None Hospital Course: Patient is a 73-year-old female with a past medical history significant for persistent atrial fibrillation status post biventricular pacemaker who presented AV node ablation. Patient had persistent atrial fibrillation and failed antiarrhythmic drug therapy with flecainide and had QT prolongation with dofetilide. her rates remained uncontrolled despite maximally tolerated doses of beta blockers and calcium channel blockers. Yesterday she underwent an AV node ablation. loop monitor was also explanted. she tolerated the procedure well and has done well overnight. Patient seen and examined resting comfortably in bed. She has been able to get up and walk around without any dizziness. She still has a little bit of shortness of breath. Denies any chest palpitations. Tolerated her breakfast well. No bleeding problems overnight. Telemetry reveals biventricular pacing with septal physiologic pacing labs reviewed, hemoglobin 10.9, WBC BC 8.0, platelets 260 Temperature 98.2F, pulse 90, respirations 18, blood pressure 117/76, oxygen saturation 95% on room air patient seen and examined resting comfortably in bed, in no acute distress Heart is regular, normal S1-S2, no murmurs appreciated Lungs clear to auscultation bilaterally, no elevated JVD or lower extremity edema right groin minimally tender to palpation, access site clear and dry no palpable hematoma loop monitor excision site dressing clean dry and intact impression Persistent atrial fibrillation, status post biventricular pacemaker with physiologic septal pacing, status post AV node ablation Plan Stop diltiazem Continue metoprolol continue losartan Continue anticoagulation with the bases Continue atorvastatin Follow-up with the device clinic. pacing at 90 bpm for at least 3 weeks Patient Condition at Discharge: Stable Plan - Discharge Summary Discharge Rx Participant: No New Discharge Prescriptions: No Action Levothyroxine Sodium [Synthroid] 112 mcg PO DAILY Edoxaban Tosylate [Savaysa] 60 mg PO DAILY #30 tab Losartan [Cozaar] 25 mg PO DAILY Atorvastatin [Lipitor] 10 mg PO DAILY Divalproex ER [Depakote ER] 500 mg PO BID Tart Bruno 2,000 mg PO DAILY Magnesium Oxide [Hampton] 500 mg PO DAILY Loratadine [Claritin] 10 mg PO DAILY Cholecalciferol [Vitamin D3 (25 Mcg = 1000 Iu)] 5,000 unit PO DAILY Metoprolol Tartrate [Lopressor] 50 mg PO BID Diltiazem HCl [Cartia Xt] 180 mg PO DAILY Discharge Medication List Levothyroxine Sodium [Synthroid] 112 mcg PO DAILY 01/20/15 [History] Edoxaban Tosylate [Savaysa] 60 mg PO DAILY #30 tab 07/16/15 [Rx] Losartan [Cozaar] 25 mg PO DAILY 06/21/17 [History] Atorvastatin [Lipitor] 10 mg PO DAILY 03/25/18 [History] Divalproex ER [Depakote ER] 500 mg PO BID 08/30/18 [History] Tart Bruno 2,000 mg PO DAILY 08/30/18 [History] Cholecalciferol [Vitamin D3 (25 Mcg = 1000 Iu)] 5,000 unit PO DAILY 10/17/18 [History] Loratadine [Claritin] 10 mg PO DAILY 10/17/18 [History] Magnesium Oxide [Hampton] 500 mg PO DAILY 10/17/18 [History] Diltiazem HCl [Cartia Xt] 180 mg PO DAILY 01/01/19 [History] Metoprolol Tartrate [Lopressor] 50 mg PO BID 01/01/19 [History] Follow up Appointment(s)/Referral(s): Silver Majano MD [STAFF PHYSICIAN] - 03/08/19 3:45 pm (follow up with Dr. Majano post ablation. pacemaker clinic in 3 weeks on Mar 20 at 3:30pm.) Patient Instructions/Handouts: Cardiac Ablation (DC) Care Plan Goals (MU): patient is to STOP taking cardizem per verbal order from Dr. Majano.
== END 2019-02-27 15:00 | disposition home or self-care (01) ==
LOC: CATHEP 10:52 → 1SOBS 15:26 → CATHEP 02-27 15:00
PROVIDERS: ATTEND Internal Medicine Clinical Cardiac Electrophysiology
DX: I48.19 Other persistent atrial fibrillation (principal); I10 Essential (primary) hypertension; I47.1 Supraventricular tachycardia; I49.5 Sick sinus syndrome; E07.9 Disorder of thyroid, unspecified; Z98.890 Other specified postprocedural states; Z79.890 Hormone replacement therapy; Z79.899 Other long term (current) drug therapy; Z88.0 Allergy status to penicillin; Z95.0 Presence of cardiac pacemaker; Z79.01 Long term (current) use of anticoagulants; Z86.73 Personal history of transient ischemic attack (TIA), and cerebral infarction without residual deficits
CPT/HCPCS: 93650; 33286; 85025; C1894; C1769; C1893; C1732; J2250; J2001; J0461; J3010; J1644; J1170

== ENCOUNTER → 2019-05-30 | Outpatient (CLI) | payer MEDICARE, BC ==
[2019-05-30 08:28] LABS: Basophils % (A) 0 %; Eosinophils # (A) 0.1 k/uL (0-0.7); Eosinophils % (A) 1 %; HCT 38.7 % (34.0-46.0); HGB 12.7 gm/dL (11.4-16.0); Lymphocytes # (A) 2.3 k/uL (1.0-4.8); Lymphocytes % (A) 33 %; MCHC 32.9 g/dL (31.0-37.0); MCV 87.9 fL (80.0-100.0); Mean Platelet Volume 8.1; Monocytes # (A) 0.7 k/uL (0-1.0); Monocytes % (A) 9 %; Neutrophils # (A) 3.8 k/uL (1.3-7.7); Neutrophils % (A) 54 %; Platelet Count 239 k/uL (150-450); RDW 12.8 % (11.5-15.5)
[2019-05-30 08:49] LABS: Appearance,Urine Clear (Clear); Bacteria,Urine Rare /hpf; Bilirubin,Urine Negative (Negative); Blood,Urine Negative (Negative); Color,Urine Yellow; Glucose,Urine (UA) Negative (Negative); Hyaline Casts,Urine 8 /lpf (0-2); Ketones,Urine Negative (Negative); Leukocyte Esterase,Urine Trace (Negative); Mucus,Urine Occasional /hpf; Nitrite,Urine Negative (Negative); PH, Urine 6.5 (5.0-8.0); Protein,Urine Trace (Negative); RBC,Urine 2 /hpf (0-5); Specific Gravity,Urine 1.024 (1.001-1.035); Squamous Epithelial Cell,Urine 1 /hpf (0-4); WBC,Urine 5 /hpf (0-5)
[2019-05-30 09:33] LABS: Erythrocyte Sedimentation Rate 7 mm/hr (0-20)
[2019-05-30 16:21] LABS: Protein, Total 5.6 g/dL (6.2-8.2)
[2019-05-30 16:45] LABS: Streptolysin O Ab(ASO) 40 IU/mL (0-200)
[2019-05-30 17:05] LABS: ALT 16 U/L (8-44); AST 22 U/L (13-35); African American GFR (CKD) 97.5 (60.0-200.0); Albumin/Globulin Ratio 2.44 (1.60-3.17); Alkaline Phosphatase 67 U/L (41-126); BUN/Creat Ratio 24.29 Ratio (12.00-20.00); C Reactive Protein <0.4 mg/dL (0.0-0.8); Calcium 8.7 mg/dL (8.7-10.3); Carbon Dioxide 26.2 mmol/L (21.6-31.8); Chloride 107 mmol/L (96-109); Creatine Kinase 40 U/L (26-186); Globulin 1.6 g/dL (1.6-3.3); Glucose 85 mg/dL (70-110); LDH 236 U/L (120-246); Non-African American GFR(CKD) 84.2 (60.0-200.0); Phosphorus 3.6 mg/dL (2.4-5.1); Potassium 4.2 mmol/L (3.5-5.5); Rheumatoid Factor, Qnt 4 IU/mL (0-15); Sodium 142 mmol/L (135-145); Total Bilirubin 0.8 mg/dL (0.3-1.2); Total Protein 5.5 g/dL (6.2-8.2); Uric Acid 4.7 mg/dL (2.9-7.7)
[2019-05-30 18:19] LABS: Cyclic Citrull Pep IgG Unit <0.5 U/mL; Cyclic Citrullinated Pep IgG NEGATIVE (NEGATIVE)
[2019-05-31 08:45] LABS: ANA Pattern Homogeneous; ANA Pattern 2 Nucleolar
[2019-05-31 09:43] LABS: Albumin 3.46 g/dL (3.80-4.90); Gamma Globulin 0.62 g/dL (0.70-1.50)
[2019-05-31 10:43] LABS: HLA B27 NEGATIVE
[2019-05-31 12:08] LABS: Angiotensin-1 Converting Enz. 57 U/L (8-52)
[2019-05-31 15:03] LABS: Vitamin D, 1, 25-Dihydroxy 73 pg/mL (20 - 79)
[2019-06-01 06:31] LABS: Vit B1(Thiamine) 91 ug/L (38-122)
== END | disposition home or self-care (01) ==
LOC: LABWHC1 06:41
PROVIDERS: ATTEND Physical Medicine & Rehabilitation
DX: M54.5 Low back pain (principal); M43.16 Spondylolisthesis, lumbar region; M51.17 Intervertebral disc disorders with radiculopathy, lumbosacral region; M47.816 Spondylosis without myelopathy or radiculopathy, lumbar region; R20.2 Paresthesia of skin; M96.1 Postlaminectomy syndrome, not elsewhere classified; G62.9 Polyneuropathy, unspecified; E55.9 Vitamin D deficiency, unspecified; E11.9 Type 2 diabetes mellitus without complications
CPT/HCPCS: 36415; 80053; 81001; 82164; 82248; 82306; 82310; 82550; 82553; 82607; 82652; 83036; 83516; 83615; 83970; 84100; 84165; 84207; 84425; 84439; 84443; 84550; 85025; 85652; 86038; 86039; 86060; 86140; 86200; 86235; 86431; 86618; 86812; 87522

== ENCOUNTER → 2019-11-16 | Outpatient (CLI) | payer MEDICARE, BC | END | disposition home or self-care (01) | LOC: CPPFTMAIN 13:31 | PROVIDERS: ATTEND Internal Medicine Clinical Cardiac Electrophysiology | DX: R94.2 Abnormal results of pulmonary function studies (principal); R06.02 Shortness of breath | CPT/HCPCS: 94060; 94726; 94729 ==

== ENCOUNTER 2019-11-27 14:07 | Emergency (ER) | payer MEDICARE, BC ==
[2019-11-27 14:13] VITALS: TEMP 98.2
[2019-11-27] MEDS ORDERED: ORPHENADRINE 30 MG/ML 2 ML VIAL IVP STA (14:33)
[2019-11-27] MEDS ORDERED: MORPHINE SULFATE 4 MG/ML SYRINGE IVP STA (14:33)
[2019-11-27] MEDS ORDERED: KETOROLAC 15 MG/ML 1 ML VIAL IVP STA (14:33)
--- NOTE | 2019-11-27 14:37 | ED ---
Neck Injury/Pain HPI - General Chief Complaint: Neck Pain/Injury Stated Complaint: neck stiffness Time Seen by Provider: 11/27/19 14:17 Source: RN notes reviewed, old records reviewed Mode of arrival: wheelchair Limitations: no limitations - History of Present Illness Initial Comments: Patient is a 74 -year-old female presents the ER today with complaints of neck pain worse with any movement that started 2 days ago. She denies any injury. She reports it started on Tuesday. She has been taking old oxycodone for pain relief. Patient states that she has a history of chronic back pain. She reports she's never had severe pain with intermittent neck or head. Patient states that she's had no chest pain or shortness of breath. She reports the pain is starting to feel somewhat nauseated. - Related Data Home Medications Medication Instructions Recorded Confirmed Levothyroxine Sodium [Synthroid] 112 mcg PO DAILY 01/20/15 02/26/19 Losartan [Cozaar] 25 mg PO DAILY 06/21/17 02/26/19 Atorvastatin [Lipitor] 10 mg PO DAILY 03/25/18 02/26/19 Divalproex ER [Depakote ER] 500 mg PO BID 08/30/18 02/26/19 Tart Bruno 2,000 mg PO DAILY 08/30/18 02/26/19 Cholecalciferol [Vitamin D3 (25 5,000 unit PO DAILY 10/17/18 02/26/19 Mcg = 1000 Iu)] Loratadine [Claritin] 10 mg PO DAILY 10/17/18 02/26/19 Magnesium Oxide [Hampton] 500 mg PO DAILY 10/17/18 02/26/19 Metoprolol Tartrate [Lopressor] 50 mg PO BID 01/01/19 02/26/19 Previous Rx's Medication Instructions Recorded Edoxaban Tosylate [Savaysa] 60 mg PO DAILY #30 tab 07/16/15 HYDROcodone/APAP 5-325MG [Vershire 1 tab PO Q6HR PRN 3 Days #12 tab 11/27/19 5-325] Ibuprofen [Motrin] 600 mg PO Q8HR PRN #20 tab 11/27/19 diazePAM [Valium] 5 mg PO TID PRN 3 Days #9 tab 11/27/19 Allergies Allergy/AdvReac Type Severity Reaction Status Date / Time Penicillins AdvReac yeast Verified 11/27/19 14:13 infections Review of Systems ROS Statement: Those systems with pertinent positive or pertinent negative responses have been documented in the HPI. ROS Other: All systems not noted in ROS Statement are negative. Past Medical History Past Medical History: Atrial Fibrillation, Hypertension, Osteoarthritis (OA), Seizure Disorder, Sleep Apnea/CPAP/BIPAP, Thyroid Disorder Additional Past Medical History / Comment(s): Tachycardia bradycardia syndrome/mild sick sinus syndrome, paroxysmal atrial fibrillation, loop recorder, last seizure 2 yrs ago. Sleep apnea (currently not using her CPAP). See [facility] States left foot fracture OCT 2018, no surgery, wore boot for a while. States left leg still swollen from knee to ankle, had ultrasound to rule out blood clots yesterday and it was negative. History of Any Multi-Drug Resistant Organisms: None Reported Past Surgical History: Appendectomy, Back Surgery, Bariatric Surgery, Cardiac Ablation, Cholecystectomy, Heart Catheterization, Orthopedic Surgery, Tubal Ligation Additional Past Surgical History / Comment(s): epidural injections, nerve stimulator Past Anesthesia/Blood Transfusion Reactions: Motion Sickness Type of Cardiac Device: Loop Device Placement Date:: Past Psychological History: No Psychological Hx Reported Smoking Status: Never smoker Past Alcohol Use History: Rare Past Drug Use History: Marijuana - Past Family History Mother Family Medical History: CVA/TIA Additional Family Medical History / Comment(s): Massive Stroke at 54. Father Family Medical History: Cancer General Exam - General Exam Comments Initial Comments: 74 rolled female. Alert. No significant distress. Limitations: no limitations General appearance: alert, in no apparent distress Head exam: Present: atraumatic, normocephalic, normal inspection Eye exam: Present: normal appearance, PERRL, EOMI. Absent: scleral icterus, conjunctival injection, periorbital swelling ENT exam: Present: normal exam, mucous membranes moist Neck exam: Present: tenderness (show significant tenderness and muscle spasms ov er the left and right paraspinal muscles. Patient unable to turn her head left or right more than 1 inch either side. ). Absent: normal inspection, meningismus, lymphadenopathy Respiratory exam: Present: normal lung sounds bilaterally. Absent: respiratory distress, wheezes, rales, rhonchi, stridor Cardiovascular Exam: Present: regular rate, normal rhythm, normal heart sounds. Absent: systolic murmur, diastolic murmur, rubs, gallop, clicks GI/Abdominal exam: Present: soft, normal bowel sounds. Absent: distended, te nderness, guarding, rebound, rigid Extremities exam: Present: normal inspection, full ROM, normal capillary refill. Absent: tenderness, pedal edema, joint swelling, calf tenderness Back exam: Present: normal inspection Neurological exam: Present: alert, oriented X3, CN II-XII intact Psychiatric exam: Present: normal affect, normal mood Skin exam: Present: warm, dry, intact, normal color. Absent: rash Course Vital Signs 11/27/19 14:10 Temperature 98.2 F Pulse Rate 62 Respiratory 18 Rate Blood Pressure 152/84 O2 Sat by Pulse 98 Oximetry Medical Decision Making - Medical Decision Making Patient is a pleasant 74-year-old female who presents to the ER today for evaluation for for neck pain. She reports for the past day she's been having pain with neck movement. She has no fever. She has negative Kernig's and Brudzinski sign. Patient has pain with range of motion laterally turning her head left or right upper neck. And has evidence of pancho-spinal muscle spasm. CT brain and C-spine was negative for any acute process. Evidence of degenerative changes within the C5-C6 and C6-C7. Patient does report improvement after a BP medication. She will be discharged at this time with a relaxers and close PCP follow-up. She states that she does see a back specialist for chronic pain. - Radiology Data Radiology results: report reviewed No acute intracranial mass effect or midline shift. No extra-axial fluid collection. Ventricles and sulci are normal. Cervical spine shows satisfactory alignment without evidence of fracture dislocation. Paravertebral. Tissues are normal. C1-C2 was maintained with degenerative changes. Vertebral bodies are normal. Disc space narrowing C5-C6 C6-C7. Degenerative changes with no high-grade canal stenosis. Disposition Clinical Impression: Neck muscle spasm Disposition: HOME SELF-CARE Condition: Good Instructions (If sedation given, give patient instructions): Cervical Sprain (ED), Spasmodic Torticollis (ED) Additional Instructions: Patient advised to follow-up with PCP. Also are going to follow with orthopedic back specialist. Return to the ER for evaluation If any alarming signs or symptoms occur. Prescriptions: Ibuprofen [Motrin] 600 mg PO Q8HR PRN #20 tab PRN Reason: Pain HYDROcodone/APAP 5-325MG [Vershire 5-325] 1 tab PO Q6HR PRN 3 Days #12 tab PRN Reason: Pain diazePAM [Valium] 5 mg PO TID PRN 3 Days #9 tab PRN Reason: Pain Is patient prescribed a controlled substance at d/c from ED?: Yes If prescribed controlled substance>3 days was MAPS reviewed?: Prescribed <3 Days If opioid is for acute pain is fill amount 7 days or less?: Yes If Rx opioid, was Start Talking consent form obtained?: Yes Referrals: Osbaldo Btets MD [Primary Care Provider] - 1-2 days Time of Disposition: 16:01
--- NOTE | 2019-11-27 15:24 | CT ---
EXAMINATION TYPE: CT brain cspine wo con DATE OF EXAM: 11/27/2019 COMPARISON: CT brain 07/13/2015 HISTORY: headache, neck pain CT DLP: 1354.3 mGycm Automated exposure control for dose reduction was used. TECHNIQUE: CT scan of the head and cervical spine are performed without contrast. FINDINGS: There is no acute intracranial hemorrhage, mass effect, or midline shift identified. No extra axial fluid collection. The ventricles and sulci are within normal limits in size. The globes are grossly symmetric. The visualized sinuses and mastoid air cells are clear. Cervical spine is visualized in its entirety from C1 through upper thoracic levels and demonstrates s atisfactory alignment without evidence of acute fracture or dislocation. Prevertebral soft tissue ap pears within normal limits. The C1-C2 articulation is maintained with degenerative change. Vertebra l body heights are normal. There is disc space narrowing at C5-C6 and C6-C7. Degenerative changes wit h no high-grade canal stenosis. IMPRESSION: 1. There is no acute fracture or dislocation evident in the cervical spine. 2. No acute intracranial hemorrhage, mass effect, or midline shift is seen.
[2019-11-27] MEDS ORDERED: methylPREDNISolone SOD SUCCI 125 MG/2 ML VIAL IV STA (15:44)
[2019-11-27] MEDS ORDERED: DIAZEPAM 5 MG/ML 2 ML INJ IVP STA (15:44)
[2019-11-27 16:03] VITALS: PULSE 60; RESP 16
[2019-11-27 16:22] VITALS: BP 144/92
== END 2019-11-27 16:28 | disposition home or self-care (01) ==
LOC: EC 14:07
DX: M62.838 Other muscle spasm (principal); I48.0 Paroxysmal atrial fibrillation; I10 Essential (primary) hypertension; G47.30 Sleep apnea, unspecified; E07.9 Disorder of thyroid, unspecified; G40.909 Epilepsy, unspecified, not intractable, without status epilepticus; Z79.890 Hormone replacement therapy; Z79.899 Other long term (current) drug therapy; Z88.0 Allergy status to penicillin
CPT/HCPCS: 72125; 70450; 99284; 96374; 96375 ×4; J2270; J2360; J2930; J3360; J1885

== ENCOUNTER → 2019-12-10 | Outpatient (CLI) | payer MEDICARE, BC | END | disposition home or self-care (01) | LOC: LABWHC1 10:57 | PROVIDERS: ATTEND Psychiatry & Neurology Neurology | DX: G40.209 Localization-related (focal) (partial) symptomatic epilepsy and epileptic syndromes with complex partial seizures, not intractable, without status epilepticus (principal) | CPT/HCPCS: 36415; 80177 ==

== ENCOUNTER → 2019-12-21 | Outpatient (CLI) | payer MEDICARE, BC | END | disposition home or self-care (01) | LOC: LABWHC1 07:00 | PROVIDERS: ATTEND Psychiatry & Neurology Neurology | DX: G40.209 Localization-related (focal) (partial) symptomatic epilepsy and epileptic syndromes with complex partial seizures, not intractable, without status epilepticus (principal) | CPT/HCPCS: 36415; 80177 ==

== ENCOUNTER → 2020-01-09 | Outpatient (CLI) | payer MEDICARE, BC ==
--- NOTE | 2020-01-11 11:15 | MM ---
Reason for exam: screening (asymptomatic). Last mammogram was performed 2 years ago. History: Patient is postmenopausal. Family history of breast cancer in paternal grandmother at age 50. Physical Findings: A clinical breast exam by your physician is recommended on an annual basis and results should be correlated with mammographic findings. MG 3D Screening Mammo W/Cad Bilateral CC and MLO view(s) were taken. Prior study comparison: January 11, 2018, bilateral MG 3d diag mammo w/cad [facility]. December 29, 2016, left breast MG 3d work up w/cad LT. There are scattered fibroglandular densities. Vessel tortuosity posterior central right MLO view. Pacemaker on the left. No significant changes when compared with prior studies. ASSESSMENT: Negative, BI-RAD 1 RECOMMENDATION: Routine screening mammogram of both breasts in 1 year.
== END | disposition home or self-care (01) ==
LOC: RADMAMWWP 16:03
PROVIDERS: ATTEND Family Medicine
DX: Z12.31 Encounter for screening mammogram for malignant neoplasm of breast (principal); Z80.3 Family history of malignant neoplasm of breast
CPT/HCPCS: 77063; 77067

== ENCOUNTER → 2020-07-30 | Outpatient (CLI) | payer MEDICARE, BC ==
[2020-07-30 19:29] LABS: HCT 40.3 % (37.2-46.3); HGB 13.4 g/dL (12.0-15.0); MCH 28.6 pg (27.0-32.0); MCHC 33.3 g/dL (32.0-37.0); MCV 85.9 fL (80.0-97.0); Mean Platelet Volume 10.9 fL (9.5-12.2); Platelet Count 280 X 10*3/uL (140-440); RBC 4.69 X 10*6/uL (4.10-5.20); RDW 12.5 % (11.5-14.5); WBC 8.55 X 10*3/uL (4.50-10.00)
[2020-07-30 23:58] LABS: African American GFR (CKD) 82.4 (60.0-200.0); Albumin 4.3 g/dL (3.80-4.90); Albumin/Globulin Ratio 2.26 (1.60-3.17); Calcium 9.2 mg/dL (8.7-10.3); Chol/HDL Ratio 2.83; Globulin 1.9 g/dL (1.6-3.3); LDL Cholesterol,Calculated 84.6 mg/dL (0.0-131.0); Non-African American GFR(CKD) 71.1 (60.0-200.0); Potassium 4.6 mmol/L (3.5-5.5); Total Bilirubin 1.9 mg/dL (0.3-1.2); Total Protein 6.2 g/dL (6.2-8.2); VLDL Calculation 21.4 mg/dL (5.00-40.00)
== END | disposition home or self-care (01) ==
LOC: LABWHC1 11:42
PROVIDERS: ATTEND Nurse Practitioner Adult Health
DX: I48.0 Paroxysmal atrial fibrillation (principal); I10 Essential (primary) hypertension; E03.9 Hypothyroidism, unspecified; G40.909 Epilepsy, unspecified, not intractable, without status epilepticus; E78.00 Pure hypercholesterolemia, unspecified; R73.09 Other abnormal glucose
CPT/HCPCS: 36415; 80053; 80061; 80177; 83036; 84443; 85027

== ENCOUNTER → 2021-01-09 | Outpatient (CLI) | payer MEDICARE, BC ==
[2021-01-09 20:08] LABS: HCT 40.6 % (37.2-46.3); HGB 13.3 g/dL (12.0-15.0); MCH 28.7 pg (27.0-32.0); MCHC 32.8 g/dL (32.0-37.0); MCV 87.5 fL (80.0-97.0); Mean Platelet Volume 10.5 fL (9.5-12.2); Platelet Count 290 X 10*3/uL (140-440); RBC 4.64 X 10*6/uL (4.10-5.20); RDW 12.7 % (11.5-14.5); WBC 10.61 X 10*3/uL (4.50-10.00)
[2021-01-09 20:47] LABS: African American GFR (CKD) 82.4 (60.0-200.0); Albumin 4.1 g/dL (3.8-4.9); Albumin/Globulin Ratio 2.28 (1.60-3.17); Anion Gap 10.2 mmol/L (4.00-12.00); BUN/Creat Ratio 16.38 Ratio (12.00-20.00); Blood Urea Nitrogen 13.1 mg/dL (9.0-27.0); Calcium 9.1 mg/dL (8.7-10.3); Carbon Dioxide 25.8 mmol/L (21.6-31.8); Globulin 1.8 g/dL (1.6-3.3); Non-African American GFR(CKD) 71.1 (60.0-200.0); Potassium 4.7 mmol/L (3.5-5.5); Total Bilirubin 1.1 mg/dL (0.30-1.20); Total Protein 5.9 g/dL (6.2-8.2)
[2021-01-09 20:48] LABS: Chol/HDL Ratio 2.52 Ratio; HDL Cholesterol 58.7 mg/dL (40.00-60.00); LDL Cholesterol,Calculated 68.7 mg/dL (0.0-131.0); VLDL Calculation 20.6 mg/dL (5.00-40.00)
== END | disposition home or self-care (01) ==
LOC: LABWHC1 10:51
PROVIDERS: ATTEND Psychiatry & Neurology Neurology
DX: G40.209 Localization-related (focal) (partial) symptomatic epilepsy and epileptic syndromes with complex partial seizures, not intractable, without status epilepticus (principal)
CPT/HCPCS: 36415; 80053; 80061; 80177; 83036; 84443; 85027

== ENCOUNTER → 2021-09-01 | Outpatient (CLI) | payer MEDICARE, BC ==
[2021-09-01 14:52] LABS: Basophils # (A) 0.03 X 10*3/uL (0.00-0.10); Basophils % (A) 0.4 %; Eosinophils # (A) 0.12 X 10*3/uL (0.04-0.35); Eosinophils % (A) 1.5 %; HCT 37.6 % (37.2-46.3); HGB 12.2 g/dL (12.0-15.0); Immature Grans, Automated 0.4 %; Lymphocytes # (A) 1.99 X 10*3/uL (0.90-5.00); Lymphocytes % (A) 24.8 %; MCH 28.8 pg (27.0-32.0); MCHC 32.4 g/dL (32.0-37.0); MCV 88.7 fL (80.0-97.0); Mean Platelet Volume 10.4 fL (9.5-12.2); Monocytes # (A) 0.61 X 10*3/uL (0.20-1.00); Monocytes % (A) 7.6 %; NRBC Per 100 WBC 0 /100 WBCS (0.0-0.0); Neutrophils # (A) 5.26 X 10*3/uL (1.80-7.70); Neutrophils % (A) 65.3 %; Platelet Count 263 X 10*3/uL (140-440); RBC 4.24 X 10*6/uL (4.10-5.20); RDW 12.3 % (11.5-14.5); WBC 8.04 X 10*3/uL (4.50-10.00)
[2021-09-01 15:07] LABS: ALT 26 U/L (8-44); AST 35 U/L (13-35); African American GFR (CKD) 82.8 (60.0-200.0); Albumin 3.7 g/dL (3.8-4.9); Albumin/Globulin Ratio 1.64 (1.60-3.17); Alkaline Phosphatase 99 U/L (41-126); BUN/Creat Ratio 13.13 Ratio (12.00-20.00); Blood Urea Nitrogen 10.4 mg/dL (9.0-27.0); Calcium 8.4 mg/dL (8.7-10.3); Carbon Dioxide 19.6 mmol/L (20.0-27.5); Chloride 111 mmol/L (96-109); Chol/HDL Ratio 2.52 Ratio; Globulin 2.3 g/dL (1.6-3.3); Glucose 86 mg/dL (70-110); LDL Cholesterol,Calculated 71.2 mg/dL (0.0-131.0); Non-African American GFR(CKD) 71.5 (60.0-200.0); Sodium 142 mmol/L (135-145); VLDL Calculation 13.76 mg/dL (5.00-40.00)
== END | disposition home or self-care (01) ==
LOC: LABWHC1 09:08
PROVIDERS: ATTEND Psychiatry & Neurology Neurology
DX: I10 Essential (primary) hypertension (principal); G40.209 Localization-related (focal) (partial) symptomatic epilepsy and epileptic syndromes with complex partial seizures, not intractable, without status epilepticus; E03.9 Hypothyroidism, unspecified; E55.9 Vitamin D deficiency, unspecified; I48.91 Unspecified atrial fibrillation; E78.5 Hyperlipidemia, unspecified; R51.9 Headache, unspecified
CPT/HCPCS: 36415; 80053; 80061; 80177; 83036; 84443; 85025

== ENCOUNTER → 2021-11-09 | Outpatient (CLI) | payer MEDICARE, BC ==
[2021-11-10 00:57] LABS: African American GFR (CKD) 58.2 (60.0-200.0); Anion Gap 9.7 mmol/L (10.00-18.00); Blood Urea Nitrogen 13.5 mg/dL (9.0-27.0); Non-African American GFR(CKD) 50.3 (60.0-200.0); Potassium 5.1 mmol/L (3.5-5.5)
[2021-11-10 01:15] LABS: HCT 39.2 % (37.2-46.3); HGB 12.8 g/dL (12.0-15.0); MCH 29.5 pg (27.0-32.0); MCHC 32.7 g/dL (32.0-37.0); MCV 90.3 fL (80.0-97.0); Mean Platelet Volume 10.6 fL (9.5-12.2); NRBC Per 100 WBC 0 /100 WBCS (0.0-0.0); Platelet Count 288 X 10*3/uL (140-440); RBC 4.34 X 10*6/uL (4.10-5.20); RDW 11.9 % (11.5-14.5); WBC 7.98 X 10*3/uL (4.50-10.00)
== END | disposition home or self-care (01) ==
LOC: LABPAT 15:00
PROVIDERS: ATTEND Internal Medicine
DX: Z01.812 Encounter for preprocedural laboratory examination (principal); I48.0 Paroxysmal atrial fibrillation
CPT/HCPCS: 80051; 82565; 84520; 85027

== ENCOUNTER 2021-11-10 08:28 | Day surgery (SDC) | payer MEDICARE, BC ==
[2021-11-09 10:35] VITALS: BMI 30.7
[~2021-11-10 08:28] MED LIST changes: +ALPRAZolam 0.25 MG TAB PO PRN; +ALPRAZolam 0.5 MG TAB PO PRN; +ASPIRIN 325 MG TAB PO ONE; +ATORVASTATIN 80 MG TAB PO ONE; -CLINDAMYCIN 600 MG in SODIUM CHLORIDE 0.9% IRRIGATIO 250 ML IRRIGATION ONE; -CLINDAMYCIN 900 MG in DEXTROSE 5% IN WATER 50 ML IVPB ONE; +HEPARIN SODIUM,PORCINE 10,000 UNIT in SODIUM CHLORIDE 0.9% 1,000 ML IRRIGATION PRN; +HEPARIN SODIUM,PORCINE 2,500 UNIT in SODIUM CHLORIDE 0.9% 250 ML IRRIGATION PRN; -HYDROmorphone 0.5 MG/0.5 ML SYRINGE IVP PRN; -MIDAZOLAM 2 MG/2 ML VIAL IV PRN; +NITROGLYCERIN SL TABS 0.4 MG TAB SUBLINGUAL PRN; +SODIUM CHLORIDE 0.9% 1,000 ML in EMPTY BAG 1 BAG IV SCH
[2021-11-10 08:52] VITALS: RESP 18; TEMP 98.1
[2021-11-10] MEDS ORDERED: SODIUM CHLORIDE 0.9% 1,000 ML IV ONE (11:00)
[2021-11-10] MEDS ORDERED: VERAPAMIL 2.5 MG/ML 2 ML AMP ONE (12:31)
[2021-11-10] MEDS ORDERED: fentaNYL (PF) 50 MCG/ML 2 ML AMP ONE (12:31)
[2021-11-10] MEDS ORDERED: HEPARIN SODIUM 1,000 UN/ML (10ML VL) ONE (12:31)
[2021-11-10] MEDS ORDERED: fentaNYL (PF) 50 MCG/ML 2 ML AMP IV ONE (12:42)
[2021-11-10] MEDS ORDERED: LIDOCAINE 1% INJ 10MG/ML (5 ML VIAL-PF) SQ ONE (12:42)
[2021-11-10] MEDS ORDERED: MIDAZOLAM 2 MG/2 ML VIAL IV ONE (12:42)
[2021-11-10] MEDS ORDERED: VERAPAMIL SYRINGE (5 MG/10 ML) INTRAARTER ONE (12:43)
[2021-11-10] MEDS ORDERED: HEPARIN SODIUM 1,000 UN/ML (10ML VL) IV ONE (12:48)
[2021-11-10] MEDS ORDERED: IOPAMIDOL-370 125ML BTL INJ ONE (12:53)
[2021-11-10] MEDS ORDERED: SODIUM CHLORIDE 0.9% 500 ML 500 ML IV ONE (14:30)
[2021-11-10 16:25] VITALS: BP 136/84; PULSE 64
--- NOTE | 2021-11-10 22:16 | P.CARDCATH ---
Description of Procedure: PROCEDURES PERFORMED: Bilateral coronary angiography, left heart catheterization INDICATION: Cardiomyopathy CONSENT:I have discussed the risks, benefits and alternative therapies for the above-mentioned procedure and for both sedation/analgesia as well as necessary blood product administration, if indicated, as they pertain to this patient. The patient has indicated understanding and acceptance of the risks and procedures discussed. PROCEDURE: After the risks, benefits and alternatives of the above mentioned procedure explained in detail with the patient, informed consent was obtained. Patient was taken to the catheterization lab and prepped and draped in usual fashion. 1% lidocaine was used to anesthetize the right radial artery. A 6- Israeli sheath was placed in the right radial artery using modified Seldinger technique. Left coronary angiography was performed with a 5-Israeli JL 3.5 catheter and right coronary angiography was performed with a 5-Israeli JR5 catheter in various views. The FR 5 catheter was advanced into the left ventricle and pressure measurements were obtained. The right radial sheath was removed and a TR band was placed with hemostasis achieved. The patient tolerated the procedure well. Patient was transported back to the post catheterization holding area in stable condition. Conscious Sedation: Patient was monitored under the direct supervision of vision of myself for conscious sedation using Versed and fentanyl for a total duration of 14 minutes HEMODYNAMICS: Aorta: 153/78 LV: 157/4, LVEDP 9mmHg SELECTIVE CORONARY ARTERIOGRAPHY: LEFT MAIN: The left main is a large caliber vessel which bifurcates into the LAD and circumflex. There is no significant stenosis. LEFT ANTERIOR DESCENDING CORONARY ARTERY: LAD is a large caliber vessel which wraps around to the apex. There is a mild 10% proximal LAD stenosis and otherwise normal. LEFT CIRCUMFLEX CORONARY ARTERY: Left circumflex is a moderate to large caliber vessel without significant stenosis. RIGHT CORONARY ARTERY: The right coronary artery is a large caliber vessel which gives off a PDA and PLV branch and is the dominant vessel. There is no significant stenosis. FINAL IMPRESSION: 1. Relatively normal coronary arteries with only mild 10% LAD stenosis. 2. Normal left sided filling pressures. PLAN: 1. Aggressive risk factor modification per most recent ACC/AHA guidelines. 2. Followup with Dr Majano in 1 week.
== END 2021-11-10 16:25 | disposition home or self-care (01) ==
LOC: CATHCVL 08:28
PROVIDERS: ATTEND Internal Medicine
DX: I48.0 Paroxysmal atrial fibrillation (principal); I10 Essential (primary) hypertension; I42.0 Dilated cardiomyopathy; Z95.0 Presence of cardiac pacemaker; Z88.0 Allergy status to penicillin; Z79.01 Long term (current) use of anticoagulants; Z79.899 Other long term (current) drug therapy; Z79.890 Hormone replacement therapy
CPT/HCPCS: 93458; 87635; C1769 ×2; C1894; J2250; J2001; J3010; J1644; Q9967

== ENCOUNTER → 2021-11-23 | Outpatient (CLI) | payer MEDICARE, BC ==
--- NOTE | 2021-11-27 18:29 | MM ---
Reason for Exam: Screening (asymptomatic). Last mammogram was performed 1 year(s) and 11 month(s) ago. Patient History: Menarche at age 7. First Full-Term at age 18. Postmenopausal. Paternal grandmother had breast cancer, age 50. Risk Values: [place] 5 year model risk: 1.7%. NCI Lifetime model risk: 3.0%. Prior Study Comparison: 12/29/2016 Left Diagnostic Mammogram, [facility]. 01/11/2018 Bilateral Diagnostic Mammogram, [facility]. 01/09/2020 Bilateral Screening Mammogram, [facility]. Tissue Density: The breast tissue is almost entirely fat. Findings: Analyzed By CAD. There is no suspicious group of microcalcifications or new suspicious mass in either breast. Pacemaker obscures the left axilla. Overall Assessment: Negative, BI-RAD 1 Management: Screening Mammogram of both breasts in 1 year. A clinical breast exam by your physician is recommended on an annual basis and results should be correlated with mammographic findings. Electronically signed and approved by: Robert Connors DO
== END | disposition home or self-care (01) ==
LOC: RADMAMWWP 16:27
PROVIDERS: ATTEND Family Medicine
DX: Z12.31 Encounter for screening mammogram for malignant neoplasm of breast (principal); Z78.0 Asymptomatic menopausal state; Z80.3 Family history of malignant neoplasm of breast
CPT/HCPCS: 77063; 77067

== ENCOUNTER 2022-01-09 13:01 | Emergency (ER) | payer MEDICARE, BC ==
[2022-01-09 13:13] VITALS: BP 129/83; PULSE 71; RESP 20; TEMP 97.3
[2022-01-09] MEDS ORDERED: HYDROmorphone 1 MG/ML 1 ML SYRINGE IM STA (13:26)
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
== END 2022-01-09 14:52 | disposition home or self-care (01) ==
LOC: EC 13:01
DX: S20.212A Contusion of left front wall of thorax, initial encounter (principal); I48.91 Unspecified atrial fibrillation; E78.5 Hyperlipidemia, unspecified; I10 Essential (primary) hypertension; M19.90 Unspecified osteoarthritis, unspecified site; E07.9 Disorder of thyroid, unspecified; F32.A Depression, unspecified; F12.90 Cannabis use, unspecified, uncomplicated; Z88.1 Allergy status to other antibiotic agents; Z79.82 Long term (current) use of aspirin; Z79.899 Other long term (current) drug therapy; W01.198A Fall on same level from slipping, tripping and stumbling with subsequent striking against other object, initial encounter
CPT/HCPCS: 71101; 99284; 96372; J1170

== ENCOUNTER → 2022-07-06 | Outpatient (CLI) | payer MEDICARE, BC ==
[2022-07-06 15:59] LABS: HCT 39.3 % (37.2-46.3); HGB 13.2 g/dL (12.0-15.0); MCH 30.1 pg (27.0-32.0); MCHC 33.6 g/dL (32.0-37.0); MCV 89.5 fL (80.0-97.0); Mean Platelet Volume 10.6 fL (9.5-12.2); NRBC Per 100 WBC 0 /100 WBCS (0.0-0.0); Platelet Count 307 X 10*3/uL (140-440); RBC 4.39 X 10*6/uL (4.10-5.20); RDW 12.9 % (11.5-14.5); WBC 9.29 X 10*3/uL (4.50-10.00)
[2022-07-06 16:24] LABS: ALT 25 U/L (8-44); AST 23 U/L (13-35); African American GFR (CKD) 70.3 (60.0-200.0); Albumin 4.2 g/dL (3.8-4.9); Alkaline Phosphatase 110 U/L (41-126); BUN/Creat Ratio 17.85 Ratio (12.00-20.00); Blood Urea Nitrogen 16.1 mg/dL (9.0-27.0); Calcium 8.7 mg/dL (8.7-10.3); Carbon Dioxide 25.9 mmol/L (20.0-27.5); Chloride 109 mmol/L (96-109); Chol/HDL Ratio 2.35 Ratio; Globulin 1.8 g/dL (1.6-3.3); Glucose 92 mg/dL (70-110); LDL Cholesterol,Calculated 80.1 mg/dL (0.0-131.0); Non-African American GFR(CKD) 60.7 (60.0-200.0); Potassium 4.4 mmol/L (3.5-5.5); Sodium 146 mmol/L (135-145); VLDL Calculation 15.22 mg/dL (5.00-40.00)
== END | disposition home or self-care (01) ==
LOC: LABWHC1 09:29
PROVIDERS: ATTEND Family Medicine
DX: G40.209 Localization-related (focal) (partial) symptomatic epilepsy and epileptic syndromes with complex partial seizures, not intractable, without status epilepticus (principal)
CPT/HCPCS: 36415; 80053; 80061; 80177; 83036; 84443; 85027

== ENCOUNTER 2022-08-23 05:52 | Day surgery (SDC) | payer MEDICARE, BC ==
[2022-08-23] MEDS ORDERED: LACTATED RINGERS 1,000 ML IV SCH (05:53)
[2022-08-23] MEDS ORDERED: SODIUM CHLORIDE 0.9% 1,000 ML IV SCH (05:53)
[2022-08-23 06:54] LABS: African American GFR (CKD) 66 (>60 ml/min/1.73 sqM); Anion Gap 7 mmol/L; Blood Urea Nitrogen 29 mg/dL (7-17); Calcium 8.7 mg/dL (8.4-10.2); Carbon Dioxide 27 mmol/L (22-30); Chloride 105 mmol/L (98-107); Glucose 98 mg/dL (74-99); Non-African American GFR(CKD) 58 (>60 ml/min/1.73 sqM); Sodium 139 mmol/L (137-145)
[2022-08-23] MEDS ORDERED: SODIUM CHLORIDE 0.9% 500 ML 500 ML IV ONE (07:08)
[2022-08-23 07:09] VITALS: BP 117/58; PULSE 62; RESP 16; TEMP 97.9
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
--- NOTE | 2022-08-23 07:54 | P.PRLE ---
RE: Tyro,Fang Divya Dear Michael Fang Mcbride has symptomatic atrial fibrillation with associated nonischemic cardiomyopathy and hypothyroidism with a TSH of 26 in the month of June She has failed treatment for atrial fibrillation with flecainide, was intolerant of even the lowest doses of dofetilide I started her on amiodarone and currently she is on 200 mg by mouth daily She was brought in for an electrical cardioversion that she has chemically converted on amiodarone Suggest Continue ELIQUIS Continue heart failure medications at this time including spironolactone and Lasix carvedilol and losartan Continue amiodarone 200 mg by mouth daily and I will reduce the dose of amiodarone 200 mg by mouth daily in the next 3 months Close follow-up of TSH levels and maintenance of euthyroid state If her LV function does not improve despite maintenance of sinus rhythm and impedance of euthyroid state then I will add ENTRESTO in place of losartan I would discontinue fish oil as some clinical trials have noted an increased incidence of atrial fibrillation with the use of fish oil Thank you for entrusting me with the care of the patient Warm regards Sincerely Silver Majano
--- NOTE | 2022-08-23 07:58 | P.EPPROC ---
- EP Procedure Note Electrophysiology Procedure Note: Biventricular pacemaker with his bundle pacing, cardiac physiologic pacing interrogated Patient is in sinus rhythm with an atrial paced rhythm Atrial pacing impedance 551 ohms, pacing threshold 0.4 also 0.4 ms and P waves 1.9 mV RV pacing threshold 1.2 V at 0.4 ms, R waves 8.5 V and pacing impedance 684 ohms His bundle pacing impedance 418 ohms, pacing threshold 1 V at 1 ms Patient is 99% placed in the His bundle She converted to sinus rhythm around July on amiodarone Plan Continue ELIQUIS Continue amiodarone 200 mg by mouth daily for the next 3 months and then 100 mg thereafter Maintain euthyroid state Follow-up LV function by 2-D echo in 3 months If she has no improvement in LV systolic function despite maintenance of a euthyroid state and sinus mechanism then ENTRESTO will be considered in place of losartan
== END 2022-08-23 08:17 | disposition home or self-care (01) ==
LOC: CATHEP 05:52
PROVIDERS: ATTEND Internal Medicine Clinical Cardiac Electrophysiology
DX: I48.19 Other persistent atrial fibrillation (principal); I42.8 Other cardiomyopathies; I11.0 Hypertensive heart disease with heart failure; I50.9 Heart failure, unspecified; I25.10 Atherosclerotic heart disease of native coronary artery without angina pectoris; I47.1 Supraventricular tachycardia; I49.5 Sick sinus syndrome; E03.9 Hypothyroidism, unspecified; Z95.0 Presence of cardiac pacemaker; Z79.01 Long term (current) use of anticoagulants; Z79.899 Other long term (current) drug therapy; Z79.890 Hormone replacement therapy; Z88.0 Allergy status to penicillin
CPT/HCPCS: 80048; 92960

== ENCOUNTER → 2022-12-21 | Outpatient (CLI) | payer MEDICARE, BC ==
[2022-12-21 20:02] LABS: HCT 36.9 % (37.2-46.3); HGB 12.2 d/dL (12.0-15.0); MCHC 33.1 d/dL (32.0-37.0); MCV 93.7 FL (80.0-97.0); Mean Platelet Volume 10.6 FL (9.5-12.2); NRBC Per 100 WBC 0 X 10*3/uL (0.00-0.01); Platelet Count 288 X 10*3/uL (140-440); RBC 3.94 X 10*6/uL (4.10-5.20); RDW 12.3 % (11.5-14.5); WBC 10.99 X 10*3/uL (4.50-10.00)
[2022-12-21 23:23] LABS: ALT 18 U/L (8-44); AST 23 U/L (13-35); Albumin 4.2 d/dL (3.8-4.9); Alkaline Phosphatase 97 U/L (41-126); Blood Urea Nitrogen 17.1 mg/dL (9.0-27.0); Carbon Dioxide 25.5 mmol/L (21.6-31.8); Chloride 107 mmol/L (96-109); Chol/HDL Ratio 2.83 Ratio; Globulin 2.1 d/dL (1.6-3.3); Glucose 88 mg/dL (70-110); LDL Cholesterol,Calculated 104.6 mg/dL (0.0-131.0); Potassium 4.9 mmol/L (3.5-5.5); Sodium 143 mmol/L (135-145); Total Bilirubin 0.5 mg/dL (0.3-1.2); Total Protein 6.3 d/dL (6.2-8.2)
== END | disposition home or self-care (01) ==
LOC: LABWHC1 11:32
PROVIDERS: ATTEND Family Medicine
DX: I10 Essential (primary) hypertension (principal); E78.00 Pure hypercholesterolemia, unspecified; G40.909 Epilepsy, unspecified, not intractable, without status epilepticus; R73.09 Other abnormal glucose
CPT/HCPCS: 36415; 80053; 80061; 80177; 83036; 85027

== ENCOUNTER → 2023-01-20 | Outpatient (CLI) | payer MEDICARE, BC ==
--- NOTE | 2023-01-24 06:40 | MM ---
Reason for Exam: Screening (asymptomatic). Last mammogram was performed 1 year(s) and 2 month(s) ago. Patient History: Menarche at age 7. First Full-Term at age 18. Postmenopausal. Paternal grandmother had breast cancer, age 50. Risk Values: [place] 5 year model risk: 1.7%. NCI Lifetime model risk: 2.8%. Prior Study Comparison: 01/11/2018 Bilateral Diagnostic Mammogram, [facility]. 01/09/2020 Bilateral Screening Mammogram, [facility]. 11/23/2021 Bilateral MG 3D screening mammo w/cad, [facility]. Tissue Density: There are scattered fibroglandular densities. Findings: Analyzed By CAD. Generator device projects over the left pectoralis. There is no suspicious group of microcalcifications or new suspicious mass in either breast. Overall Assessment: Negative, BI-RAD 1 Management: Screening Mammogram of both breasts in 1 year. . Patient should continue monthly self-breast exams. A clinical breast exam by your physician is recommended on an annual basis. This exam should not preclude additional follow-up of suspicious palpable abnormalities. Note on [place] scores and lifetime risk: 1. A [place] score greater than 3% is considered moderate risk. If this is the case, consider specialist referral to assess eligibility for a risk reducing agent. 2. If overall lifetime risk for the development of breast cancer is 20% or higher, the patient may qualify for future screening with alternating mammogram and breast MRI. Electronically signed and approved by: Lynn Pepe M.D. Radiologist
== END | disposition home or self-care (01) ==
LOC: RADMAMWWP 15:44
PROVIDERS: ATTEND Family Medicine
DX: Z12.31 Encounter for screening mammogram for malignant neoplasm of breast (principal); Z78.0 Asymptomatic menopausal state; Z80.3 Family history of malignant neoplasm of breast
CPT/HCPCS: 77063; 77067

== ENCOUNTER → 2023-03-28 | Outpatient (CLI) | payer MEDICARE, BC ==
[2023-03-28 16:35] LABS: BUN/Creat Ratio 14.73 Ratio (12.00-20.00); Blood Urea Nitrogen 16.2 mg/dL (9.0-27.0); Calcium 9.1 mg/dL (8.7-10.3); Carbon Dioxide 27.2 mmol/L (21.6-31.8); Chloride 105 mmol/L (96-109); Glucose 100 mg/dL (70-110); Potassium 4.3 mmol/L (3.5-5.5); Sodium 143 mmol/L (135-145)
== END | disposition home or self-care (01) ==
LOC: LABWHC1 09:40
PROVIDERS: ATTEND Internal Medicine Clinical Cardiac Electrophysiology
DX: I10 Essential (primary) hypertension (principal)
CPT/HCPCS: 36415; 80048; 83735

== ENCOUNTER → 2024-06-14 | Outpatient (CLI) | payer MEDICARE, BC ==
--- NOTE | 2024-06-14 11:21 | MM ---
Reason for Exam: Screening (asymptomatic). Last mammogram was performed 1 year(s) and 5 month(s) ago. Patient History: Menarche at age 7. First Full-Term at age 18. Postmenopausal. Paternal grandmother had breast cancer, age 50. Risk Values: [place] 5 year model risk: 1.6%. NCI Lifetime model risk: 2.3%. Prior Study Comparison: 01/09/2020 Bilateral Screening Mammogram, [facility]. 11/23/2021 Bilateral MG 3D screening mammo w/cad, [facility]. 01/20/2023 Bilateral MG 3D screening mammo w/cad, [facility]. Tissue Density: There are scattered areas of fibroglandular density. Findings: Analyzed By CAD. There is no suspicious group of microcalcifications or new suspicious mass in either breast. Stable postoperative changes of left-sided lumpectomy. No recurrent mass is appreciated. Overall Assessment: Benign, BI-RAD 2 Management: Screening Mammogram of both breasts in 1 year. . Patient should continue monthly self-breast exams. A clinical breast exam by your physician is recommended on an annual basis. This exam should not preclude additional follow-up of suspicious palpable abnormalities. Note on [place] scores and lifetime risk: 1. A [place] score greater than 3% is considered moderate risk. If this is the case, consider specialist referral to assess eligibility for a risk reducing agent. 2. If overall lifetime risk for the development of breast cancer is 20% or higher, the patient may qualify for future screening with alternating mammogram and breast MRI. [facility], , 06/14/2024 11:15 AM. Electronically signed and approved by: Kj Sauer M.D. Radiologis
== END | disposition home or self-care (01) ==
LOC: RADMAMWWP 10:43
PROVIDERS: ATTEND Family Medicine
DX: Z12.31 Encounter for screening mammogram for malignant neoplasm of breast (principal); R92.323 Mammographic fibroglandular density, bilateral breasts; Z78.0 Asymptomatic menopausal state; Z80.3 Family history of malignant neoplasm of breast
CPT/HCPCS: 77063; 77067

== ENCOUNTER → 2024-06-14 | Outpatient (CLI) | payer MEDICARE, BC ==
--- NOTE | 2024-06-14 11:55 | US ---
EXAMINATION TYPE: US venous doppler duplex LE BI DATE OF EXAM: 06/14/2024 11:34 AM COMPARISON: 2018 CLINICAL INDICATION: Female, 79 years old with history of M79.89 RT LEG SWELLING,R60.0 LEG EDEMA; Pt has hx of a couple falls. Pain and swelling right leg. Patient is on eliquis. TECHNIQUE: The lower extremity deep venous system is examined utilizing real time linear array sonog ward with graded compression, color doppler sonography, and spectral doppler. SIDE PERFORMED: Bilateral FINDINGS: VESSELS IMAGED: Common Femoral Vein Deep Femoral Vein Greater Saphenous Vein * Femoral Vein Popliteal Vein Small Saphenous Vein * Proximal Calf Veins (* superficial vessels) Right Leg: No evidence of DVT, Color Doppler imaging shows patency of the vessels. Spectral waveform s are within normal limits. Anechoic area seen posterior to the vessels [employer] and CFV in upper groin: 4.8 x 1.1 x 1.2cm. Peroneal veins not visualized. Left Leg: No evidence of DVT, Color Doppler imaging shows patency of the vessels. Spectral waveforms are within normal limits. Peroneal veins not visualized. IMPRESSION: 1. No ultrasound evidence for deep venous thrombosis. 2. Possible fluid collection near the common femoral vein. Correlate for recent surgical interventio n. Consider cross-sectional imaging for complete evaluation. [facility], , 06/14/2024 11:53 AM
== END | disposition home or self-care (01) ==
LOC: RADUSWWP 10:42
PROVIDERS: ATTEND Psychiatry & Neurology Neurology
DX: M79.89 Other specified soft tissue disorders (principal); R60.0 Localized edema
CPT/HCPCS: 93970